=== PATIENT | male | born 1955 | race Two or more races ===

== ENCOUNTER 2024-07-19 19:37 | Inpatient (IN) | payer MEDICARE, OTHER ==
[~2024-07-19] VITALS: Ht 177.8 cm; Wt 45.2 kg
--- NOTE | 2024-07-19 19:59 | ED.PDOC ---
History of Present Illness HPI Comments 68-year-old male with PMHx HTN, DM, CHF And end-stage renal disease on home peritoneal dialysis presents with a chief complaint of syncope x 2 onset earlier today. Patient states that around noon today he was eating a burrito then states that he felt "like my head exploded" and "then I couldn't speak, like I was paralyzed". Patient reports that his tried getting him to speak and was sternal rubbing him, but patient states that he could not speak. Patient mentions that he then had a syncopal episode. Patient reports that he was recently placed on Eliquis and that is when the onset of the syncope episodes began as he has had this happen before in the past. Patient denies hitting his head or other neurological symptoms at this time. No other symptoms or modifying factors present at this time. patient was hypotensive on arrival. Chief Complaint: Syncope Time Seen by MD: 19:52 Reviewed Notes: Nurses Notes, Medications, Allergies Information Source: Patient, Relative (Child) Mode of Arrival: WALKER Severity: Moderate Timing: Hours Duration: Since onset Prehospital treatment: None Past Medical History PAST MEDICAL HISTORY: CHF, DM, ESRD (On dialysis), HTN Surgical History: Denies all surgeries Family History Family History: Reviewed,noncontributory to illness Social History Smoker: Non-Smoker Alcohol: Denies ETOH Use Drugs: Denies Drug Use Lives In: Home Constitutional: reports: weakness; denies: chills, diaphoresis, fatigue, fever, malaise, sweats, others EENTM: denies: blurred vision, double vision, ear bleeding, ear discharge, ear drainage, ear pain, ear ringing, eye pain, eye redness, hearing loss, mouth pain, mouth swelling, nasal discharge, nose bleeding, nose congestion, nose pain, photophobia, tearing, throat pain, throat swelling, voice changes, others Respiratory: denies: cough, hemoptysis, orthopnea, SOB at rest, shortness of breath, SOB with excertion, stridor, wheezing, others Cardiovascular: reports: syncope; denies: chest pain, dizzy spells, diaphoresis, Dyspnea on exertion, edema, irregular heart beat, left arm pain, lightheadedness, palpitations, PND, others Gastrointestinal: denies: abdomen distended, abdominal pain, blood streaked bowels, constipated, diarrhea, dysphagia, difficulty swallowing, hematemesis, melena, nausea, poor appetite, poor fluid intake, rectal bleeding, rectal pain, vomiting, others Genitourinary: denies: burning, dysuria, flank pain, frequency, hematuria, incontinence, penile discharge, penile sore, pain, testicle pain, testicle swelling, urgency, others Neurological: reports: dizziness, fainting; denies: headache, left sided numbness, left sided weakness, numbness, paresthesia, pre-existing deficit, right sided numbness, right sided weakness, seizure, speech problems, tingling, tremors, weakness, others Musculoskeletal: denies: back pain, gout, joint pain, joint swelling, muscle pain, muscle stiffness, neck pain, others Integumetry: denies: bruises, change in color, change in hair/nails, dryness, laceration, lesions, lumps, rash, wounds, others Allergic/Immunocompromised: denies: Difficulty Healing, Frequent Infections, Hives, Itching, others Hematologic/Lymphatic: denies: anemia, blood clots, easy bleeding, easy bruising, swollen glands, others Endocrine: denies: excessive hunger, excessive sweating, excessive thirst, excessive urination, flushing, intolerance to cold, intolerance to heat, unexplained weight gain, unexplained weight loss, others Psychiatric: denies: anxiety, bipolar disorder, depression, hopeless, panic disorder, schizophrenia, sleepless, suicidal, others All Other Systems: Reviewed and Negative Physical Exam General Appearance: Mild Distress ( patient was in moderate distress due to anxiety. Patient appears to be in poor overall health.), Obese HEENT: Normal ENT Inspection, Pharynx Normal, TMs Normal Neck: Full Range of Motion, Non-Tender, Normal, Normal Inspection Respiratory: Other ( Mild bilateral rhonchi appreciated in right middle lobe, right upper lobe and left upper lobe. No accessory muscle use. No signs of respiratory distress.) Cardiovascular: No Edema, No JVD, No Murmur, No Gallop, Normal Peripheral Pulses, Regular Rate/Rhythm Breast Exam: Deferred Gastrointestinal: No Pulsatile Mass, Normal Bowel Sounds, Soft Genitalia: Deferred Pelvic: Deferred Rectal: Deferred Extremities: No calf tenderness, Normal capillary refill, No pedal edema Neurologic: Alert, No Motor Deficits, Normal Affect, Normal Mood, No Sensory Deficits Cerebellar Function: Normal Reflexes: Normal Skin: Dry, Normal Color, Warm Lymphatic: No Adenopathy Was a procedure done? Was a procedure done?: No Differential Dx Considerations may include: Intracranial mass, subarachnoid hemorrhage, sepsis, electrolyte abnormality, encephalopathy, end-stage renal disease X-Ray, Labs, Meds, VS Vital Signs Date Time Temp Pulse Resp B/P (MAP) Pulse Ox O2 Delivery O2 Flow Rate FiO2 07/19/24 20:40 85 07/19/24 19:49 97.8 74 15 85/53 (64) 97 97.8 Lab Test 07/20/24 00:17 07/19/24 23:15 07/19/24 22:13 07/19/24 21:05 Range/Units POC Glucose 155 H 70-106 mg/dl Troponin I High Sensitivity 44 47 </=54 ng/L Lactic Acid Level 1.9 0.4-2.0 mmol/L Test 07/19/24 20:14 07/19/24 19:53 Range/Units White Blood Count 12.7 H 4.4-10.8 10^3/uL Red Blood Count 4.07 L 4.5-5.90 10^6/uL Hemoglobin 11.8 L 13.5-17.5 g/dL Hematocrit 35.7 L 41.0-53.0 % Mean Corpuscular Volume 87.6 80.0-100.0 fL Mean Corpuscular Hemoglobin 29.0 28.0-32.0 pg Mean Corpuscular Hemoglobin Concent 33.1 32.0-36.0 g/dL Red Cell Distribution Width 14.5 H 11.8-14.3 % Platelet Count 222 140-450 10^3/uL Mean Platelet Volume 7.3 6.9-10.8 fL Neutrophils (%) (Auto) 84.5 H 37.0-80.0 % Lymphocytes (%) (Auto) 7.2 L 10.0-50.0 % Monocytes (%) (Auto) 5.8 0.0-12.0 % Eosinophils (%) (Auto) 1.6 0.0-7.0 % Basophils (%) (Auto) 0.9 0.0-2.0 % Neutrophils # (Auto) 10.7 H 1.6-8.6 10 ^3/uL Lymphocytes # (Auto) 0.9 0.4-5.4 10 ^3/uL Monocytes # (Auto) 0.7 0-1.3 10 ^3/uL Eosinophils # (Auto) 0.2 0-0.8 10 ^3/uL Basophils # (Auto) 0.1 0-0.2 10 ^3/uL Nucleated Red Blood Cells 0.0 % Sodium Level 128 L 136-145 mmol/L Potassium Level 4.8 3.5-5.1 mmol/L Chloride Level 90 L 98-107 mmol/L Carbon Dioxide Level 26 20-31 mmol/L Anion Gap 12 5-15 Blood Urea Nitrogen 55 H 9-23 mg/dL Creatinine 7.64 H 0.700-1.30 mg/dL Glomerular Filtration Rate Calc 7 >90 mL/min BUN/Creatinine Ratio 7.2 L 10.0-20.0 Serum Glucose 222 H 74-106 mg/dL Lactic Acid Level 3.0 *H 0.4-2.0 mmol/L Calcium Level 8.1 L 8.7-10.4 mg/dL Total Bilirubin 0.5 0.2-1.0 mg/dL Aspartate Amino Transferase (AST) 28 13-40 U/L Alanine Aminotransferase (ALT) 27 7-40 U/L Alkaline Phosphatase 125 H 46-116 U/L Troponin I High Sensitivity 47 </=54 ng/L B-Type Natriuretic Peptide 241.22 0-100 pg/mL Total Protein 6.3 5.7-8.2 g/dL Albumin 3.8 3.2-4.8 g/dL Lipase 47 12-53 U/L POC Glucose 214 H 70-106 mg/dl Current Medications Medications (Trade) Dose Ordered Sig/Fransisco Route Start Time Stop Time Status Last Admin Sodium Chloride 1,000 ml @ 150 mls/hr Q6H40M ONCE IV 07/19/24 20:00 07/20/24 02:39 07/19/24 21:30 Albumin Human 100 ml @ 100 mls/hr ONCE ONCE IV 07/19/24 20:00 07/19/24 20:59 DC 07/19/24 20:29 X-Ray, Labs, Meds, VS Comment All studies performed in the ED were evaluated by me personally. Laboratories revealed a mild leukocytosis, anemia, hyponatremia, hyperglycemia, elevated lactic acid and confirmation of his end-stage renal disease. EKG revealed an atrial fibrillation that is rate controlled with a rate of 85. Incomplete left bundle-branch block. QT interval 375. Imaging studies revealed a consolidation indicative of pneumonia. Due to the patient's unusual encephalopathy event as well as dialysis concerns, patient will be admitted for neuro evaluation, cardiac evaluation as well as nephrology evaluation prior to his peritoneal dialysis treatment. Time of 1ST Reevaluation: 01:49 Reevaluation 1ST: Improved Consultation: PCP, Other ( Nephrology) Patient Education/Counseling: Diagnosis, Treatment, Prognosis Family Education/Counseling: Diagnosis, Treatment, No Family Present Departure 1 Departure Time of Disposition: 01:50 Impression: Primary Impression: Metabolic encephalopathy Additional Impressions: Leukocytosis Anemia Hyponatremia Pneumonia End stage renal disease on dialysis Hyperglycemia due to diabetes mellitus Elevated lactic acid level A-fib Disposition: 09 ADMITTED INPATIENT Condition: Fair Discharged With: Self, Relative Critical Care Note Critical Care Time?: No Stability Stability form required: No Heart Score Heart Score: Heart Score Response (Comments) Value History Slightly Suspicious 0 EKG Repolarization Disturb 1 Age >65 2 Risk Factors >3 or Hx ASHD 2 Troponin 1-2 x's Normal limit 1 Total 6 I personally scribed for OLIVER WILLIAMSON PAC ([email or web address]) on 07/19/24 at 19:59. Electronically submitted by Monty Solano ([email or web address]). OLIVER WILLIAMSON PAC Jul 19, 2024 19:59
[2024-07-19 20:14] VITALS: PULSE 82; RESP 17; O2SAT 81
--- NOTE | 2024-07-19 20:20 | DVH ---
CHEST RADIOGRAPH Indication: Shortness of breath Technique: Single frontal view of the chest was obtained Comparison: None FINDINGS: Lines and Tubes: None Lungs: Mild bilateral perihilar peribronchial thickening findings may represent bronchitis. Pleura: No effusion. No pneumothorax. Cardiomediastinal contours: Unremarkable Bones: No acute osseous abnormality. IMPRESSION: 1. Possible bronchitic changes correlate with clinical symptomatology. HS:Y
[2024-07-19] MEDS: ALBUMIN 25% 100 ML IV ONE (20:29)
[2024-07-19 20:38] LABS: Basophils # (auto) 0.1 10 ^3/uL (0-0.2); Basophils % (auto) 0.9 % (0.0-2.0); Eosinophils # (auto) 0.2 10 ^3/uL (0-0.8); Eosinophils % (auto) 1.6 % (0.0-7.0); Hematocrit 35.7 % (41.0-53.0); Hemoglobin 11.8 g/dL (13.5-17.5); Lymphocytes # (auto) 0.9 10 ^3/uL (0.4-5.4); Lymphocytes % (auto) 7.2 % (10.0-50.0); Mean Corpuscular Hgb Conc. 33.1 g/dL (32.0-36.0); Mean Corpuscular Volume 87.6 fL (80.0-100.0); Monocytes # (auto) 0.7 10 ^3/uL (0-1.3); Monocytes % (auto) 5.8 % (0.0-12.0); Neutrophils # (auto) 10.7 10 ^3/uL (1.6-8.6); Neutrophils % (auto) 84.5 % (37.0-80.0); Platelet Count (auto) 222 10^3/uL (140-450); Red Blood Cells 4.07 10^6/uL (4.5-5.90); Red Cell Distribution Width 14.5 % (11.8-14.3); White Blood Cell 12.7 10^3/uL (4.4-10.8)
[2024-07-19 20:55] LABS: Alanine Aminotransferase 27 U/L (7-40); Albumin 3.8 g/dL (3.2-4.8); Anion Gap 12 (5-15); Aspartate Aminotransferase 28 U/L (13-40); BUN/Creatinine Ratio 7.2 (10.0-20.0); Bilirubin, Total 0.5 mg/dL (0.2-1.0); Carbon Dioxide 26 mmol/L (20-31); Lipase 47 U/L (12-53); Potassium 4.8 mmol/L (3.5-5.1); Total Protein 6.3 g/dL (5.7-8.2)
[2024-07-19 21:24] LABS: Alkaline Phosphatase 125 U/L (46-116); Blood Urea Nitrogen 55 mg/dL (9-23); Calcium 8.1 mg/dL (8.7-10.4); Chloride 90 mmol/L (98-107); Glucose 222 mg/dL (74-106); Sodium 128 mmol/L (136-145)
[2024-07-19] MEDS: SODIUM CHLORIDE 0.9% 1,000 ML IV ONE (21:30)
[2024-07-20] VITALS (8 sets, daily range): BP systolic 93–139; BP diastolic 60–66; PULSE 64–83; RESP 13–20; TEMP 97.4–97.8; O2SAT 93–100
--- NOTE | 2024-07-20 01:16 | DVH ---
EXAM: CT HEAD WITHOUT CONTRAST INDICATION: Headache TECHNIQUE: CT of the head without intravenous contrast. Radiation Dose : 1. Head: CT Dose: CTDI volume is 62.74 mGy. Dose-length product is 1234.85 mGy*cm The dose indicators for CT are the volume Computed Tomography (CT) Dose Index (CTDIvol) and the Dose Length Product (DLP), and are measured in units of mGy and mGy-cm, respectively. These indicators are not patient dose, but values generated from the CT scanner acquisition factors. The report includes radiation exposure data for exposures received during this examination. COMPARISON: None FINDINGS: There is no evidence of acute intracranial hemorrhage, extra-axial collection, mass effect, midline s hift, herniation or hydrocephalus. The ventricles, sulci and cisterns are age appropriate. The guerrier-white differentiation is intact. Punctate parenchymal calcification within the medial left p eriventricular guerrier-white matter junction. Patchy periventricular and subcortical white matter hypoattenuation is nonspecific but may be related to small vessel ischemic disease. Right maxillary mucosal sinus disease noted. The remaining visualized paranasal sinuses and mastoid a ir cells are clear. The surrounding soft tissues and osseous structures are unremarkable. IMPRESSION: 1. No acute intracranial abnormality. Radiation optimization: All CT scans at this facility use at least one of these dose optimization frank hniques: automated exposure control mA and/or kV adjustment per patient size (includes targeted exam s where dose is matched to clinical indication) or iterative reconstruction.
[2024-07-20] MEDS: LACTULOSE 20Gm/30ML SOLN PO ONE (02:22)
[2024-07-20] MEDS: AZITHROMYCIN 500MG/ 250ML 250 ML IV ONE (02:23)
[2024-07-20] MEDS ORDERED: ONDANSETRON HCL 4 MG/2 ML VIAL IV PRN (03:30)
[2024-07-20] MEDS ORDERED: DOCUSATE SOD 100 MG CAP PO PRN (03:30)
[2024-07-20] MEDS ORDERED: ACETAMINOPHEN 325 MG TAB PO PRN (03:30)
[2024-07-20] MEDS ORDERED: DEXTROSE (50%) 50ML SYRG IV PRN ×2 (03:30→04:45)
[2024-07-20] MEDS ORDERED: NITROGLYCERIN 0.4 MG SL TAB SL PRN (04:45)
[2024-07-20] MEDS ORDERED: MORPHINE SULFATE INJ 2 MG/ml SYRG IV PRN (04:45)
--- NOTE | 2024-07-20 05:18 | DVHHP2 ---
History of Present Illness Reason for Visit: Metabolic encephalopathy History of Present Illness The patient is a 68-year-old male with past medical history of CHF, DM, end- stage renal disease on peritoneal dialysis and hypertension presented to [facility] ED for evaluation of syncopal episode. Patient states that around noon today he was eating a burrito when he felt exploded head, and "then couldn't speak, feeling paralyzed". Patient reports that his tried getting him to speak and was sternal rubbing him, but he could not speak, then had a syncopal episode. Patient reports that he was recently placed on Eliquis. Patient was seen and evaluated in the ED, laboratory data shows WBC 12.7, platelets 222, sodium 128, potassium 4.8, BUN 55, creatinine 7.64, GFR seven, glucose 222, calcium 8.1, BNP 241.22, lactic acid 3.0 trending down to 1.9, troponin 44, lipase 47, blood pressure 101/87, heart rate 85, temperature 97.8 F, O2 saturation 97% on oxygen. Head CT showed no acute intracranial abnormality. Please see medication orders section in the computer. On my assess ment, patient denied chest pain, no headache, no dizziness, no diaphoresis, no shortness of breath, no diarrhea, no nausea, no vomiting, no fever, no chills. Patient was admitted for further evaluation and medical management. Past Medical History CHF, DM, ESRD (On dialysis), HTN Past Surgical History Denies all surgeries Family History Reviewed, noncontributory to the management of this case. Past Social History The patient lives at home, denies smoking, alcohol or illicit drugs abuse. Review of Systems Constitutional: Yes: Weakness; No: Fever, Chills, Sweats, Malaise, Other Eyes: No: Pain, Vision change, Conjunctivae inflammation, Eyelid inflammation, Other, Redness ENT: No: Ear pain, Ear discharge, Nose pain, Nose discharge, Nose congestion, Mouth pain, Mouth swelling, Throat pain, Throat swelling, Other Respiratory: No: Cough, Dry, Shortness of breath, SOB with excertion, Wheezing, Hemoptysis, Pleuritic Pain, Sputum, Wheezing, Other Cardiovascular: No: Chest Pain, Palpitations, Orthopnea, Paroxysmal Noc. Dyspnea, Edema, Lt Headedness, Other Gastrointestinal: No: Nausea, Vomiting, Abdominal Pain, Diarrhea, Constipation, Melena, Hematochezia, Other Genitourinary: No Dysuria, No Frequency, No Incontinence, No Hematuria, No Retention; Other (Peritoneal dialysis) Musculoskeletal: No: other, neck pain, shoulder pain, arm pain, back pain, hand pain, leg pain, foot pain Skin: No: Rash, Lesions, Jaundice, Bruising, Other Neurological: No: Weakness, Numbness, Incoordination, Change in speech, Confusion, Seizures, Other Medications Current Medications Medications Dose Ordered Sig/Fransisco Route Start Time Stop Time Status Last Admin Dose Admin Ampicillin Sodium/ Sulbactam Sodium 3 gm/Sodium Chloride 100 ml @ 100 mls/hr Q6H IV 07/20/24 00:45 UNV Sevelamer HCl 800 mg TIDWM PO 07/20/24 08:00 UNV Multivit/Ca Carb/ B Cmplx/FA/Prenat 1 tab DAILY PO 07/20/24 10:00 UNV Azithromycin 250 ml @ 125 mls/hr DAILY IV 07/20/24 10:00 UNV Carvedilol 3.125 mg Q12HR PO 07/20/24 10:00 UNV Gabapentin 300 mg TID PO 07/20/24 06:00 UNV Atorvastatin Calcium 20 mg HS PO 07/20/24 22:00 UNV Diagnostic Test (Pha) 1 strip ACHS 07/20/24 07:00 UNV Insulin Human Regular HS SC 07/20/24 22:00 UNV Insulin Human Regular AC SC 07/20/24 07:00 UNV Dextrose 50 ml UD PRN IV 07/20/24 03:30 UNV Acetaminophen/ Hydrocodone Bitart 1 tab Q4HP PRN PO 07/20/24 03:30 UNV Ondansetron HCl 4 mg Q4HP PRN IV 07/20/24 03:30 UNV Docusate Sodium 100 mg BIDPRN PRN PO 07/20/24 03:30 UNV Acetaminophen 650 mg Q6HP PRN PO 07/20/24 03:30 UNV Lactulose 30 ml DAILY PO 07/20/24 10:00 UNV Exam Vital Signs Vital Signs Date Time Temp Pulse Resp B/P (MAP) Pulse Ox O2 Delivery O2 Flow Rate FiO2 07/20/24 00:02 90 07/19/24 19:49 97.8 15 85/53 (64) 97 97.8 General Appearance: Alert, Oriented X3, Cooperative, No acute distress HEENT: Atraumatic, PERRLA, EOMI, Mucous membr. moist/pink Respiratory: Clear to auscultation, Normal air movement Cardiovascular: Regular rate, Normal S1, Normal S2, No murmurs Abdominal: Normal bowel sounds, Soft, No tenderness, No hepatospenomegaly, No masses Extremities: No clubbing, No cyanosis, No edema, Normal pulses, No tend erness/swelling Skin: No rashes, No breakdown, No significant lesion Neuro: Normal speech, Normal tone, Sensation intact, Cranial nerves 3-12 NL, Reflexes 2+, Other (Generalized weakness) Psych/Mental Status: Mental status NL, Mood NL Labs/Xrays Labs Test 07/20/24 00:17 07/19/24 23:15 07/19/24 22:13 07/19/24 20:14 Range/Units POC Glucose 155 H 70-106 mg/dl Troponin I High Sensitivity 44 </=54 ng/L Lactic Acid Level 1.9 0.4-2.0 mmol/L White Blood Count 12.7 H 4.4-10.8 10^3/uL Red Blood Count 4.07 L 4.5-5.90 10^6/uL Hemoglobin 11.8 L 13.5-17.5 g/dL Hematocrit 35.7 L 41.0-53.0 % Mean Corpuscular Volume 87.6 80.0-100.0 fL Mean Corpuscular Hemoglobin 29.0 28.0-32.0 pg Mean Corpuscular Hemoglobin Concent 33.1 32.0-36.0 g/dL Red Cell Distribution Width 14.5 H 11.8-14.3 % Platelet Count 222 140-450 10^3/uL Mean Platelet Volume 7.3 6.9-10.8 fL Neutrophils (%) (Auto) 84.5 H 37.0-80.0 % Lymphocytes (%) (Auto) 7.2 L 10.0-50.0 % Monocytes (%) (Auto) 5.8 0.0-12.0 % Eosinophils (%) (Auto) 1.6 0.0-7.0 % Basophils (%) (Auto) 0.9 0.0-2.0 % Neutrophils # (Auto) 10.7 H 1.6-8.6 10 ^3/uL Lymphocytes # (Auto) 0.9 0.4-5.4 10 ^3/uL Monocytes # (Auto) 0.7 0-1.3 10 ^3/uL Eosinophils # (Auto) 0.2 0-0.8 10 ^3/uL Basophils # (Auto) 0.1 0-0.2 10 ^3/uL Nucleated Red Blood Cells 0.0 % Sodium Level 128 L 136-145 mmol/L Potassium Level 4.8 3.5-5.1 mmol/L Chloride Level 90 L 98-107 mmol/L Carbon Dioxide Level 26 20-31 mmol/L Anion Gap 12 5-15 Blood Urea Nitrogen 55 H 9-23 mg/dL Creatinine 7.64 H 0.700-1.30 mg/dL Glomerular Filtration Rate Calc 7 >90 mL/min BUN/Creatinine Ratio 7.2 L 10.0-20.0 Serum Glucose 222 H 74-106 mg/dL Calcium Level 8.1 L 8.7-10.4 mg/dL Total Bilirubin 0.5 0.2-1.0 mg/dL Aspartate Amino Transferase (AST) 28 13-40 U/L Alanine Aminotransferase (ALT) 27 7-40 U/L Alkaline Phosphatase 125 H 46-116 U/L B-Type Natriuretic Peptide 241.22 0-100 pg/mL Total Protein 6.3 5.7-8.2 g/dL Albumin 3.8 3.2-4.8 g/dL Lipase 47 12-53 U/L PATIENT: FERNANDO RANDLE ACCT: [id number] UNIT: [id number] : 1955 LOC: ER ROOM / BED: / AGE / SEX: 68 / M ADM STATUS: REG ER SERVICE [id number] ORDERING PHYSICIAN: OLIVER WILLIAMSON PAC PROCEDURE(s): HWOCT - HEAD WITHOUT CONTRAST REASON: Headache ORDER NUMBER(s): [id number], ACCESSION NUMBER(s): [id number] EXAM: CT HEAD WITHOUT CONTRAST INDICATION: Headache TECHNIQUE: CT of the head without intravenous contrast. Radiation Dose: 1. Head: CT Dose: CTDI volume is 62.74 mGy. Dose-length product is 1234.85 mGy*cm The dose indicators for CT are the volume Computed Tomography (CT) Dose Index (CTDIvol) and the Dose Length Product (DLP), and are measured in units of mGy an d mGy-cm, respectively. These indicators are not patient dose, but values generated from the CT scanner acquisition factors. The report includes radiation exposure data for exposures received during this examination. COMPARISON: None FINDINGS: There is no evidence of acute intracranial hemorrhage, extra-axial collection, mass effect, midline shift, herniation or hydrocephalus. The ventricles, sulci and cisterns are age appropriate. The guerrier-white differentiation is intact. Punctate parenchymal calcification within the medial left periventricular guerrier-white matter junction. Patchy periventricular and subcortical white matter hypoattenuation is nonspecific but may be related to small vessel ischemic disease. Right maxillary mucosal sinus disease noted. The remaining visualized paranasal sinuses and mastoid air cells are clear. The surrounding soft tissues and osseous structures are unremarkable. IMPRESSION: 1. No acute intracranial abnormality. ORDERING PHYSICIAN: OLIVER WILLIAMSON PAC PROCEDURE(s): CXRP - CHEST PORTABLE REASON: Shortness of breath ORDER NUMBER(s): [id number], ACCESSION NUMBER(s): [id number] CHEST RADIOGRAPH Indication: Shortness of breath Technique: Single frontal view of the chest was obtained Comparison: None FINDINGS: Lines and Tubes: None Lungs: Mild bilateral perihilar peribronchial thickening findings may represent bronchitis. Pleura: No effusion. No pneumothorax. Cardiomediastinal contours: Unremarkable Bones: No acute osseous abnormality. IMPRESSION: 1. Possible bronchitic changes correlate with clinical symptomatology. Assessment/Plan Assessment/Plan Metabolic encephalopathy Atrial fibrillation Leukocytosis, unspecified Elevated lactic acid level Hyponatremia Pneumonia, unspecified organism End stage renal disease on dialysis Hyperglycemia due to diabetes mellitus Plan 1. Admit to telemetry unit 2. Breathing treatment 3. Pain control management 4. IV antibiotic management 5. Management of fluids and electrolytes 6. Consultation for nephrology 7. Diagnostic test chest x-ray 8. DVT prophylaxis-on Eliquis 9. Repeat labs CBC, CMP in a.m. 10. Home medication reviewed and reconciled 11. Continue with current medical management 12. Treatment plan discussed with patient and RN. Patient verbalized understanding. Plan discussed with: Patient, Other (RN) My Orders Orders - NAVID ABEBE DNP Procedure Category Date Status Time Complete Blood Count LAB 07/20/24 Logged 04:00 Comprehensive LAB 07/20/24 Logged Metabolic Panel 04:00 Sevelamer (Renagel) PHA 07/20/24 Logged 08:00 Carvedilol Tablet PHA 07/20/24 Logged (Coreg Tablet) 10:00 Gabapentin Capsule PHA 07/20/24 Logged (Neurontin Capsule) 06:00 Atorvastatin (Lipitor) PHA 07/20/24 Logged 22:00 *[facility] CONS 07/20/24 Transmitted -[place] 03:16 Glucose Blood PHA 07/20/24 Logged (Accu-Chek Comfort 07:00 Insulin R (Human) PHA 07/20/24 Logged (Insulin R) 22:00 Insulin R (Human) PHA 07/20/24 Logged (Insulin R) 07:00 Dextrose 50% Syringe PHA 07/20/24 Logged 03:30 Allergies MAGUI 07/20/24 In Process 03:16 Code Status CODE 07/20/24 Transmitted 03:16 Renal DIET 07/20/24 Transmitted Standard(2gna,3gk,Lopho) Breakfast Oxygen Per Hour RT 07/20/24 Transmitted 03:16 Hydrocodone-Acet PHA 07/20/24 Logged 5/325mg Tab ([place] 03:30 Ondansetron Hcl PHA 07/20/24 Logged (Zofran) 03:30 Docusate Sodium PHA 07/20/24 Logged Capsule ([place] 03:30 Fall Risk Precautions MAGUI 07/20/[address] 03:16 Complete Blood Count LAB 07/21/24 Verified 04:00 Comprehensive LAB 07/21/24 Verified Metabolic Panel 04:00 Echo 2d Mode Cardiac US 07/20/24 Logged DOP 03:16 Condition: Serious MAGUI 07/20/24 In Process 03:16 Acetaminophen Tablet PHA 07/20/24 Logged (Tylenol Tablet) 03:30 Bedrest With Bathroom MAGUI 07/20/24 In Process Privileg 03:16 Sequential MAGUI 07/20/24 In Process Compression Device Lactulose Oral PHA 07/20/24 Logged 10:00 B-Complex W/ C & PHA 07/20/24 Logged Folic Tablet 10:00 Azithromycin 500mg/ PHA 07/20/24 Logged 250ml (Zithromax 50 10:00 Glucose Blood PHA 07/20/24 Transmitted (Accu-Chek Comfort 07:00 Bedtime Insulin Scale PHA 07/20/24 Verified 22:00 Moderate Insulin Ss [facility] 07/20/24 Verified 07:00 Dextrose 50% Syringe [facility] 07/20/24 Verified 04:45 Admit ADMIT 07/20/24 Verified 04:34 Nitroglycerin [facility] 07/20/24 Verified Sublingual (Ntrostat 04:45 Morphine Sulfate [facility] 07/20/24 Verified Injection 04:45 Notify Md Of Changes [facility] 07/20/24 Verified From Base 04:34 Clinical Interviewer For [facility] 07/20/24 Verified 24 Hours 04:34 Emergency Dysrhythmia [facility] 07/20/24 Verified Protocol 04:34 Rhythm Strips Once [facility] 07/20/24 Verified Every Shift 04:34 Oxygen By Nasal 07/20/24 Verified Cannula 04:34 Problem List: (1) Metabolic encephalopathy (2) Atrial fibrillation (3) Hyponatremia (4) Pneumonia, unspecified organism (5) Leukocytosis, unspecified (6) Elevated lactic acid level (7) End stage renal disease on dialysis (8) Hyperglycemia due to diabetes mellitus Date of Service: Jul 20, 2024 Billing Provider: NAVID ABEBE DNP Common Visit Codes: [id number] INP/OBS CARE (HIGH) NAVID ABEBE DNP Jul 20, 2024 05:18
[2024-07-20 06:01] LABS: Basophils # (auto) 0.1 10 ^3/uL (0-0.2); Basophils % (auto) 0.6 % (0.0-2.0); Eosinophils # (auto) 0.3 10 ^3/uL (0-0.8); Hematocrit 29.7 % (41.0-53.0); Hemoglobin 10.4 g/dL (13.5-17.5); Lymphocytes # (auto) 1.4 10 ^3/uL (0.4-5.4); Lymphocytes % (auto) 12.6 % (10.0-50.0); Mean Corpuscular Hemoglobin 30.3 pg (28.0-32.0); Mean Corpuscular Hgb Conc. 35.1 g/dL (32.0-36.0); Mean Corpuscular Volume 86.4 fL (80.0-100.0); Monocytes # (auto) 0.9 10 ^3/uL (0-1.3); Monocytes % (auto) 8.2 % (0.0-12.0); Neutrophils # (auto) 8.1 10 ^3/uL (1.6-8.6); Neutrophils % (auto) 75.6 % (37.0-80.0); Platelet Count (auto) 189 10^3/uL (140-450); Red Blood Cells 3.44 10^6/uL (4.5-5.90); Red Cell Distribution Width 14.5 % (11.8-14.3); White Blood Cell 10.8 10^3/uL (4.4-10.8)
[2024-07-20 06:20] LABS: Alanine Aminotransferase 21 U/L (7-40); Alkaline Phosphatase 111 U/L (46-116); Anion Gap 10 (5-15); BUN/Creatinine Ratio 6.9 (10.0-20.0); Carbon Dioxide 27 mmol/L (20-31); Potassium 3.6 mmol/L (3.5-5.1); Total Protein 6.3 g/dL (5.7-8.2)
[2024-07-20 06:21] LABS: Albumin 3.8 g/dL (3.2-4.8); Aspartate Aminotransferase 15 U/L (13-40); Bilirubin, Total 0.6 mg/dL (0.2-1.0)
[2024-07-20 06:25] LABS: Blood Urea Nitrogen 53 mg/dL (9-23); Chloride 94 mmol/L (98-107); Glucose 139 mg/dL (74-106); Sodium 131 mmol/L (136-145)
[2024-07-20] MEDS ORDERED: ACCU-CHEK COMFORT CURVE STRIP VI SCH (07:00)
[2024-07-20] MEDS ORDERED: InsuLIN REG 1unit/0.01ml Soln (100units/ml) SC SCH ×2 (07:00→22:00)
[2024-07-20] MEDS: GABAPENTIN 300 MG CAP PO SCH (07:08)
[2024-07-20] MEDS: ACCU-CHEK COMFORT CURVE STRIP VI SCH (07:09)
[2024-07-20] MEDS: InsuLIN REG 1unit/0.01ml Soln (100units/ml) SC SCH ×2 (07:14→21:41)
[2024-07-20] MEDS ORDERED: TAMS1CAP25 PO (08:47)
[2024-07-20] MEDS ORDERED: REPA1TAB5 OR (08:47)
[2024-07-20] MEDS ORDERED: GABA300T4 PO (08:47)
[2024-07-20] MEDS ORDERED: SPIR25TA8 PO (08:47)
[2024-07-20] MEDS ORDERED: ATOR20TA50 PO (08:47)
[2024-07-20] MEDS ORDERED: SEVE400T PO (08:47)
[2024-07-20] MEDS ORDERED: OME20T PO (08:47)
[2024-07-20] MEDS ORDERED: CARV-216 OR (08:47)
[2024-07-20] MEDS ORDERED: AML5T PO (08:47)
[2024-07-20] MEDS ORDERED: ALB5IS NEB (08:47)
[2024-07-20] MEDS ORDERED: APIX5TAB PO (08:47)
[2024-07-20] MEDS ORDERED: CINA30TA14 PO (08:47)
[2024-07-20] MEDS: B-COMPLEX W/ C & FOLIC ACID(NEPHROVITE TAB) PO SCH (09:56)
[2024-07-20] MEDS: AMPICILLIN & SULBACTAM SODIUM 3 GM in SODIUM CHL 0.9% 100 ML IV SCH (09:56)
[2024-07-20] MEDS: SEVELAMER 800 MG TAB PO SCH (09:56)
[2024-07-20] MEDS: FAMOTIDINE (10MG/ML) 2ML VL IV SCH (09:57)
[2024-07-20] MEDS: APIXABAN 5 MG TAB PO SCH (09:57)
[2024-07-20] MEDS: LACTULOSE 20Gm/30ML SOLN PO SCH (09:58)
[2024-07-20] MEDS: CARVEDILOL 3.125 MG TAB PO SCH (09:59)
--- NOTE | 2024-07-20 11:08 | DVHINCON2 ---
Date of service: Jul 20, 2024 Referring Physician Hospitalist Reason for Consultation End-stage renal disease History of Present Illness 68-year-old male with past medical history of end-stage renal disease on peritoneal dialysis for the past six months, hypertension, diabetes, atrial fibrillation recently diagnosed [facility] in June of this year approximately less than two weeks ago. Patient reports that he has had persistent cough and and phlegm. He presents to the hospital after an episode of confusion and change in mental state. Nephrology is consulted to continue dialysis treatments. Patient describes his pre hospitalization event as a brief moment of paralysis with confusion and a sudden popping sound in his head Past Medical History End-stage renal disease Hypertension Diabetes Atrial fibrillation CHF Past Surgical History Dialysis catheter Allergies: Coded Allergies: NO KNOWN ALLERGIES (Unverified , 07/20/24) Home Meds Reported Medications Sevelamer HCl (Sevelamer Hydrochloride) 400 Mg Tab, 400 MG PO, TAB 07/20/24 Tamsulosin HCl (Tamsulosin Hydrochloride) 0.4 Mg Cap, 0.4 MG PO, CAP 07/20/24 Carvedilol (COREG) 12.5 Mg Tab, 12.5 MG OR, TAB 07/20/24 Amlodipine Besylate (NORVASC TABLET) 5 Mg Tb, 1 TAB PO DAILY, #30 TAB 5 Refills 07/20/24 Gabapentin (Once-Daily) (Gabapentin) 300 Mg Tab, 300 MG PO, TAB 07/20/24 Atorvastatin Calcium (ATORVASTATIN CALCIUM) 20 Mg Tab, 1 TAB PO DAILY, #30 TAB 5 Refills 07/20/24 Repaglinide (REPAGLINIDE) 1 Mg Tab, 1 MG OR, TAB 07/20/24 Spironolactone (Spironolactone) 25 Mg Tab, 1 TAB PO DAILY, #90 TAB 1 Refill 07/20/24 Omeprazole (Omeprazole) 20 Mg Cap, 20 MG PO, CAP 07/20/24 Cinacalcet HCl (Cinacalcet Hydrochloride) 30 Mg Tab, 30 MG PO, TAB 07/20/24 Apixaban Base (ELIQUIS) 5 Mg Tab, 5 MG PO BID, TAB 07/20/24 Albuterol Sulfate (Ventolin) 2.5 Mg/0.5 Ml Nb, 1 VIAL NEB Q6HR, #120 VIAL 5 Refills 07/20/24 Current Medications Current Medications Medications (Trade) Dose Ordered Sig/Fransisco Route PRN Reason Start Time Stop Time Status Last Admin Ampicillin Sodium/ Sulbactam Sodium 3 gm/Sodium Chloride 100 ml @ 100 mls/hr DAILY IV 07/20/24 06:00 07/20/24 09:56 Sevelamer HCl (Renagel) 800 mg TIDWM PO 07/20/24 08:00 07/20/24 09:56 Multivit/Ca Carb/ B Cmplx/FA/Prenat (Nephro-Peace Tablet) 1 tab DAILY PO 07/20/24 10:00 07/20/24 09:56 Azithromycin 250 ml @ 125 mls/hr DAILY@2200 IV 07/20/24 22:00 Carvedilol (Coreg Tablet) 3.125 mg Q12HR PO 07/20/24 10:00 Gabapentin (Neurontin Capsule) 300 mg TID PO 07/20/24 06:00 07/20/24 07:08 Atorvastatin Calcium (Lipitor) 20 mg HS PO 07/20/24 22:00 Diagnostic Test (Pha) (Accu-Chek Comfort Curve T) 1 strip ACHS 07/20/24 07:00 07/20/24 05:36 DC Insulin Human Regular (InsuLIN R) HS SC 07/20/24 22:00 Insulin Human Regular (InsuLIN R) AC SC 07/20/24 07:00 07/20/24 07:14 Dextrose 50 ml UD PRN IV Blood Sugar LESS THAN 60 07/20/24 03:30 Acetaminophen/ Hydrocodone Bitart (Nichols 5/325MG Tab) 1 tab Q4HP PRN PO MODERATE PAIN (4-6 PAIN SCALE) 07/20/24 03:30 Ondansetron HCl (Zofran) 4 mg Q4HP PRN IV NAUSEA / VOMITING 07/20/24 03:30 Docusate Sodium (Colace Capsule) 100 mg BIDPRN PRN PO FOR CONSTIPATION 07/20/24 03:30 Acetaminophen (Tylenol Tablet) 650 mg Q6HP PRN PO PAIN SCALE 1-3 OR TEMP>100.4 07/20/24 03:30 Lactulose 30 ml DAILY PO 07/20/24 10:00 Diagnostic Test (Pha) (Accu-Chek Comfort Curve T) 1 strip ACHS 07/20/24 07:00 07/20/24 07:09 Insulin Human Regular (InsuLIN R) HS SC 07/20/24 22:00 07/20/24 05:38 DC Insulin Human Regular (InsuLIN R) AC SC 07/20/24 07:00 07/20/24 05:38 DC Dextrose 50 ml UD PRN IV Blood Sugar LESS THAN 60 07/20/24 04:45 07/20/24 05:38 DC Nitroglycerin (Ntrostat Sublingual) 0.4 mg Q5MINP PRN SL FOR CHEST PAIN 07/20/24 04:45 Morphine Sulfate 2 mg Q30M PRN IV FOR CHEST PAIN 07/20/24 04:45 Famotidine (Pepcid Injection) 20 mg DAILY IV 07/20/24 10:00 07/20/24 09:57 Apixaban (Eliquis) 5 mg BID PO 07/20/24 10:00 07/20/24 09:57 Review of Systems Headache H&P Exam Vital Signs/I&O Vital Sign Date Time Temp Pulse Resp B/P (MAP) Pulse Ox O2 Delivery O2 Flow Rate FiO2 07/20/24 09:59 78 106/60 07/20/24 06:00 15 98 07/19/24 20:14 Room Air* 0 21 07/19/24 20:12 97.7 97.7 Intake and Output 07/19/24 07/20/24 19:00 07:00 Intake Total 1350 ml Balance 1350 ml Intake IV Total 1350 ml Physical Exam Elderly male Mild distress due to persistent cough Decreased inspiratory effort and positive phlegm but no crackles Abdomen is soft No ankle edema Abdominal peritoneal dialysis catheter Labs/Diagnostic Data Labs/Diagnostic Data Laboratory Tests Test 07/20/24 07:07 07/20/24 05:34 07/20/24 00:17 07/19/24 23:15 Range/Units POC Glucose 153 H 155 H 70-106 mg/dl White Blood Count 10.8 4.4-10.8 10^3/uL Red Blood Count 3.44 L 4.5-5.90 10^6/uL Hemoglobin 10.4 L 13.5-17.5 g/dL Hematocrit 29.7 #L 41.0-53.0 % Mean Corpuscular Volume 86.4 80.0-100.0 fL Mean Corpuscular Hemoglobin 30.3 28.0-32.0 pg Mean Corpuscular Hemoglobin Concent 35.1 32.0-36.0 g/dL Red Cell Distribution Width 14.5 H 11.8-14.3 % Platelet Count 189 140-450 10^3/uL Mean Platelet Volume 7.0 6.9-10.8 fL Neutrophils (%) (Auto) 75.6 37.0-80.0 % Lymphocytes (%) (Auto) 12.6 10.0-50.0 % Monocytes (%) (Auto) 8.2 0.0-12.0 % Eosinophils (%) (Auto) 3.0 0.0-7.0 % Basophils (%) (Auto) 0.6 0.0-2.0 % Neutrophils # (Auto) 8.1 1.6-8.6 10 ^3/uL Lymphocytes # (Auto) 1.4 0.4-5.4 10 ^3/uL Monocytes # (Auto) 0.9 0-1.3 10 ^3/uL Eosinophils # (Auto) 0.3 0-0.8 10 ^3/uL Basophils # (Auto) 0.1 0-0.2 10 ^3/uL Nucleated Red Blood Cells 0.0 % Sodium Level 131 L 136-145 mmol/L Potassium Level 3.6 3.5-5.1 mmol/L Chloride Level 94 L 98-107 mmol/L Carbon Dioxide Level 27 20-31 mmol/L Anion Gap 10 5-15 Blood Urea Nitrogen 53 H 9-23 mg/dL Creatinine 7.71 H 0.700-1.30 mg/dL Glomerular Filtration Rate Calc 7 >90 mL/min BUN/Creatinine Ratio 6.9 L 10.0-20.0 Serum Glucose 139 H 74-106 mg/dL Calcium Level 8.0 L 8.7-10.4 mg/dL Total Bilirubin 0.6 0.2-1.0 mg/dL Aspartate Amino Transferase (AST) 15 13-40 U/L Alanine Aminotransferase (ALT) 21 7-40 U/L Alkaline Phosphatase 111 46-116 U/L Total Protein 6.3 5.7-8.2 g/dL Albumin 3.8 3.2-4.8 g/dL Troponin I High Sensitivity 44 </=54 ng/L Test 07/19/24 22:13 07/19/24 21:05 07/19/24 20:07/19/24 19:53 Range/Units Lactic Acid Level 1.9 3.0 *H 0.4-2.0 mmol/L Troponin I High Sensitivity 47 47 </=54 ng/L White Blood Count 12.7 H 4.4-10.8 10^3/uL Red Blood Count 4.07 L 4.5-5.90 10^6/uL Hemoglobin 11.8 L 13.5-17.5 g/dL Hematocrit 35.7 L 41.0-53.0 % Mean Corpuscular Volume 87.6 80.0-100.0 fL Mean Corpuscular Hemoglobin 29.0 28.0-32.0 pg Mean Corpuscular Hemoglobin Concent 33.1 32.0-36.0 g/dL Red Cell Distribution Width 14.5 H 11.8-14.3 % Platelet Count 222 140-450 10^3/uL Mean Platelet Volume 7.3 6.9-10.8 fL Neutrophils (%) (Auto) 84.5 H 37.0-80.0 % Lymphocytes (%) (Auto) 7.2 L 10.0-50.0 % Monocytes (%) (Auto) 5.8 0.0-12.0 % Eosinophils (%) (Auto) 1.6 0.0-7.0 % Basophils (%) (Auto) 0.9 0.0-2.0 % Neutrophils # (Auto) 10.7 H 1.6-8.6 10 ^3/uL Lymphocytes # (Auto) 0.9 0.4-5.4 10 ^3/uL Monocytes # (Auto) 0.7 0-1.3 10 ^3/uL Eosinophils # (Auto) 0.2 0-0.8 10 ^3/uL Basophils # (Auto) 0.1 0-0.2 10 ^3/uL Nucleated Red Blood Cells 0.0 % Sodium Level 128 L 136-145 mmol/L Potassium Level 4.8 3.5-5.1 mmol/L Chloride Level 90 L 98-107 mmol/L Carbon Dioxide Level 26 20-31 mmol/L Anion Gap 12 5-15 Blood Urea Nitrogen 55 H 9-23 mg/dL Creatinine 7.64 H 0.700-1.30 mg/dL Glomerular Filtration Rate Calc 7 >90 mL/min BUN/Creatinine Ratio 7.2 L 10.0-20.0 Serum Glucose 222 H 74-106 mg/dL Calcium Level 8.1 L 8.7-10.4 mg/dL Total Bilirubin 0.5 0.2-1.0 mg/dL Aspartate Amino Transferase (AST) 28 13-40 U/L Alanine Aminotransferase (ALT) 27 7-40 U/L Alkaline Phosphatase 125 H 46-116 U/L B-Type Natriuretic Peptide 241.22 0-100 pg/mL Total Protein 6.3 5.7-8.2 g/dL Albumin 3.8 3.2-4.8 g/dL Lipase 47 12-53 U/L POC Glucose 214 H 70-106 mg/dl Assessment End-stage renal disease on peritoneal dialysis History of diabetes and high blood pressure Admitted for altered mental state in the setting of possible TIA rule out stroke Newly diagnosed atrial fibrillation and heart failure Resume home peritoneal dialysis regimen We will order midodrine p.o. to help maintain blood pressure Continue with stool softeners Neurology and cardiology eval Renal diet Monitor electrolytes Avoid hypotension Supportive care for patient cough Plan discussed with: Patient, Daughter ARIANNA PIKE MD Jul 20, 2024 11:08
--- NOTE | 2024-07-20 12:34 | DVHPN2 ---
Reviewed: Care Plan, H&P, Labs, Medications, Previous Orders, Radiology Changes from previous H/P or p: No Changes Eyes: No Pain, No Vision change, No Conjunctivae inflammation, No Eyelid inflammation, No Other, No Redness ENT: No Ear pain, No Ear discharge, No Nose pain, No Nose discharge, No Nose congestion, No Mouth pain, No Mouth swelling, No Throat pain, No Throat swelling, No Other Cardiovascular: No Chest Pain, No Palpitations, No Orthopnea, No Paroxysmal Noc. Dyspnea, No Edema, No Lt Headedness, No Other Respiratory: No Cough, No Dry, No Shortness of breath, No SOB with excertion, No Wheezing, No Hemoptysis, No Pleuritic Pain, No Sputum, No Other Gastrointestinal: No Nausea, No Vomiting, No Abdominal Pain, No Diarrhea, No Constipation, No Melena, No Hematochezia, No Other Genitourinary: No Dysuria, No Frequency, No Incontinence, No Hematuria, No Retention; Other (Peritoneal dialysis) Musculoskeletal: No other, No neck pain, No shoulder pain, No arm pain, No back pain, No hand pain, No leg pain, No foot pain Skin: No Rash, No Lesions, No Jaundice, No Bruising, No Other Objective Vitals Vital Signs Date Time Temp Pulse Resp B/P (MAP) Pulse Ox O2 Delivery O2 Flow Rate FiO2 07/20/24 09:59 78 106/60 07/20/24 09:00 97.5 18 97 97.5 07/19/24 20:14 Room Air* 0 21 Intake/Output Intake and Output 07/20/24 07:00 Intake Total 1350 ml Balance 1350 ml Intake IV Total 1350 ml Medications Current Medications Medications Dose Ordered Sig/Fransisco Route Start Time Stop Time Status Last Admin Dose Admin Ampicillin Sodium/ Sulbactam Sodium 3 gm/Sodium Chloride 100 ml @ 100 mls/hr DAILY IV 07/20/24 06:00 07/20/24 09:56 100 MLS/HR Sevelamer HCl 800 mg TIDWM PO 07/20/24 08:00 07/20/24 09:56 800 MG Multivit/Ca Carb/ B Cmplx/FA/Prenat 1 tab DAILY PO 07/20/24 10:00 07/20/24 09:56 1 TAB Azithromycin 250 ml @ 125 mls/hr DAILY@2200 IV 07/20/24 22:00 Carvedilol 3.125 mg Q12HR PO 07/20/24 10:00 Gabapentin 300 mg TID PO 07/20/24 06:00 07/20/24 07:08 300 MG Atorvastatin Calcium 20 mg HS PO 07/20/24 22:00 Insulin Human Regular HS SC 07/20/24 22:00 Insulin Human Regular AC SC 07/20/24 07:00 07/20/24 07:14 2 UNITS Dextrose 50 ml UD PRN IV 07/20/24 03:30 Acetaminophen/ Hydrocodone Bitart 1 tab Q4HP PRN PO 07/20/24 03:30 Ondansetron HCl 4 mg Q4HP PRN IV 07/20/24 03:30 Docusate Sodium 100 mg BIDPRN PRN PO 07/20/24 03:30 Acetaminophen 650 mg Q6HP PRN PO 07/20/24 03:30 Lactulose 30 ml DAILY PO 07/20/24 10:00 Diagnostic Test (Pha) 1 strip ACHS 07/20/24 07:00 07/20/24 07:09 1 STRIP Nitroglycerin 0.4 mg Q5MINP PRN SL 07/20/24 04:45 Morphine Sulfate 2 mg Q30M PRN IV 07/20/24 04:45 Famotidine 20 mg DAILY IV 07/20/24 10:00 07/20/24 09:57 20 MG Apixaban 5 mg BID PO 07/20/24 10:00 07/20/24 09:57 5 MG Midodrine 10 mg QPM PO 07/20/24 18:00 UNV Guaifenesin/ Dextromethorphan 10 ml Q4HP PRN PO 07/20/24 11:30 UNV Laboratory Results Laboratory Tests 07/20/24 05:34 Chemistry Test 07/19/24 20:14 07/20/24 05:34 Albumin 3.8 g/dL (3.2-4.8) 3.8 g/dL (3.2-4.8) Calcium Level 8.1 mg/dL (8.7-10.4) L 8.0 mg/dL (8.7-10.4) L Total Protein 6.3 g/dL (5.7-8.2) 6.3 g/dL (5.7-8.2) Lipid panel Test 07/19/24 20:14 Lipase 47 U/L (12-53) Cardiac Markers Test 07/19/24 20:14 B-Type Natriuretic Peptide 241.22 pg/mL (0-100) LFT Test 07/19/24 20:14 07/20/24 05:34 Alanine Aminotransferase (ALT) 27 U/L (7-40) 21 U/L (7-40) Alkaline Phosphatase 125 U/L (46-116) H 111 U/L (46-116) Aspartate Amino Transferase (AST) 28 U/L (13-40) 15 U/L (13-40) Total Bilirubin 0.5 mg/dL (0.2-1.0) 0.6 mg/dL (0.2-1.0) Labs and/or images reviewed: Labs reviewed by me, Image(s) reviewed by me Assessment/Plan Assessment/Plan Syncope unknown etiology: Cardiology consult Neurology consult: CT head negative Acute Metabolic encephalopathy Atrial fibrillation: Eliquis Leukocytosis, unspecified Elevated lactic acid level Hyponatremia Lactic acidosis Pneumonia, unspecified organism: ER physician started on Unasyn End stage renal disease on peritoneal dialysis: Consult by appreciated Hyperglycemia due to diabetes mellitus Time spent 70 minutes Patient is full code Advanced care planning time 20 mts Plan discussed with: Patient Date of Service: Jul 20, 2024 Billing Provider: JOCELIN YEAGER MD Common Visit Codes: [id number] CARE 30-74 MIN JOCELIN YEAGER MD Jul 20, 2024 12:34
[2024-07-20] MEDS: cefTRIAXone 1GM/50ML D5W 50 ML IV ONE (13:15)
[2024-07-20] MEDS: HYDROcodone-ACET 5/325MG TAB PO PRN (14:05)
[2024-07-20] MEDS: guaiFENesin-DM 100/10mg/5ml SYR PO PRN (14:06)
[2024-07-20 16:08] LABS: COVID19 ANTIGEN SOFIA FIA NEGATIVE (NEGATIVE); Rapid Influenza A Negative (Negative); Rapid Influenza B Negative (Negative)
[2024-07-20] MEDS: MIDODRINE HCL 10 MG TAB PO SCH (18:17)
[2024-07-20] MEDS: ATORVASTATIN 20 MG TAB PO SCH (21:28)
[2024-07-20] MEDS: AZITHROMYCIN 500MG/ 250ML 250 ML IV SCH (21:29)
--- NOTE | 2024-07-20 22:21 | DVHINCON2 ---
Date of service: Jul 20, [address] Dubon Reason for Consultation Syncope, dialysis patient History of Present Illness Mr. Johnson is a 68 years old right-handed gentleman with a history of hypertension, diabetes, congestive heart failure, AFib, end-stage kidney failure on peritoneal dialysis, obesity, chronic low back pain, he came to the [facility] on 07/19/2024 for syncopal events. At this time, he was alert and fully oriented, he provided the following history On 07/19/2024, when he was sitting and eating at home, he had feeling of a shock and a noise inside the head, his whole-body was frozen, and he could not breath, move or speak, he had confusion feeling, he collapsed but he did not lose his consciousness. He had another similar event when he was living his whole with his walker without loss of consciousness Towards the end of 05/2024, he had a similar event that was associated with loss of consciousness for a few seconds. 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 He was on gabapentin t.i.d., but has been cut down to once a day in the evening with good results He was obese, but he does not snore. 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 Family History Hypertension, diabetes Social History He was a tobacco smoker, but denies a history of alcohol or recreational substance abuse Allergies: Coded Allergies: NO KNOWN ALLERGIES (Unverified , 07/20/24) Home Meds Reported Medications Sevelamer HCl (Sevelamer Hydrochloride) 400 Mg Tab, 400 MG PO, TAB 07/20/24 Tamsulosin HCl (Tamsulosin Hydrochloride) 0.4 Mg Cap, 0.4 MG PO, CAP 07/20/24 Carvedilol (COREG) 12.5 Mg Tab, 12.5 MG OR, TAB 07/20/24 Amlodipine Besylate (NORVASC TABLET) 5 Mg Tb, 1 TAB PO DAILY, #30 TAB 5 Refills 07/20/24 Gabapentin (Once-Daily) (Gabapentin) 300 Mg Tab, 300 MG PO, TAB 07/20/24 Atorvastatin Calcium (ATORVASTATIN CALCIUM) 20 Mg Tab, 1 TAB PO DAILY, #30 TAB 5 Refills 07/20/24 Repaglinide (REPAGLINIDE) 1 Mg Tab, 1 MG OR, TAB 07/20/24 Spironolactone (Spironolactone) 25 Mg Tab, 1 TAB PO DAILY, #90 TAB 1 Refill 07/20/24 Omeprazole (Omeprazole) 20 Mg Cap, 20 MG PO, CAP 07/20/24 Cinacalcet HCl (Cinacalcet Hydrochloride) 30 Mg Tab, 30 MG PO, TAB 07/20/24 Apixaban Base (ELIQUIS) 5 Mg Tab, 5 MG PO BID, TAB 07/20/24 Albuterol Sulfate (Ventolin) 2.5 Mg/0.5 Ml Nb, 1 VIAL NEB Q6HR, #120 VIAL 5 Refills 07/20/24 Current Medications Current Medications Medications (Trade) Dose Ordered Sig/Fransisco Route PRN Reason Start Time Stop Time Status Last Admin Ampicillin Sodium/ Sulbactam Sodium 3 gm/Sodium Chloride 100 ml @ 100 mls/hr DAILY IV 07/20/24 06:00 07/20/24 13:10 DC 07/20/24 09:56 Sevelamer HCl (Renagel) 800 mg TIDWM PO 07/20/24 08:00 07/20/24 18:17 Multivit/Ca Carb/ B Cmplx/FA/Prenat (Nephro-Peace Tablet) 1 tab DAILY PO 07/20/24 10:00 07/20/24 09:56 Azithromycin 250 ml @ 125 mls/hr DAILY@2200 IV 07/20/24 22:00 07/20/24 21:29 Carvedilol (Coreg Tablet) 3.125 mg Q12HR PO 07/20/24 10:00 07/20/24 21:28 Gabapentin (Neurontin Capsule) 300 mg TID PO 07/20/24 06:00 07/20/24 21:27 Atorvastatin Calcium (Lipitor) 20 mg HS PO 07/20/24 22:00 07/20/24 21:28 Diagnostic Test (Pha) (Accu-Chek Comfort Curve T) 1 strip ACHS 07/20/24 07:00 07/20/24 05:36 DC Insulin Human Regular (InsuLIN R) HS SC 07/20/24 22:00 07/20/24 21:41 Insulin Human Regular (InsuLIN R) AC SC 07/20/24 07:00 07/20/24 07:14 Dextrose 50 ml UD PRN IV Blood Sugar LESS THAN 60 07/20/24 03:30 Acetaminophen/ Hydrocodone Bitart (Casper 5/325MG Tab) 1 tab Q4HP PRN PO MODERATE PAIN (4-6 PAIN SCALE) 07/20/24 03:30 07/20/24 14:05 Ondansetron HCl (Zofran) 4 mg Q4HP PRN IV NAUSEA / VOMITING 07/20/24 03:30 Docusate Sodium (Colace Capsule) 100 mg BIDPRN PRN PO FOR CONSTIPATION 07/20/24 03:30 Acetaminophen (Tylenol Tablet) 650 mg Q6HP PRN PO PAIN SCALE 1-3 OR TEMP>100.4 07/20/24 03:30 Lactulose 30 ml DAILY PO 07/20/24 10:00 Diagnostic Test (Pha) (Accu-Chek Comfort Curve T) 1 strip ACHS 07/20/24 07:00 07/20/24 21:42 Insulin Human Regular (InsuLIN R) HS SC 07/20/24 22:00 07/20/24 05:38 DC Insulin Human Regular (InsuLIN R) AC SC 07/20/24 07:00 07/20/24 05:38 DC Dextrose 50 ml UD PRN IV Blood Sugar LESS THAN 60 07/20/24 04:45 07/20/24 05:38 DC Nitroglycerin (Ntrostat Sublingual) 0.4 mg Q5MINP PRN SL FOR CHEST PAIN 07/20/24 04:45 Morphine Sulfate 2 mg Q30M PRN IV FOR CHEST PAIN 07/20/24 04:45 Famotidine (Pepcid Injection) 20 mg DAILY IV 07/20/24 10:00 07/20/24 09:57 Apixaban (Eliquis) 5 mg BID PO 07/20/24 10:00 07/20/24 21:28 Midodrine (Proamatine Tablet) 10 mg QPM PO 07/20/24 18:00 07/20/24 18:17 Guaifenesin/ Dextromethorphan (Robitussin-Dm Liquid) 10 ml Q4HP PRN PO FOR COUGH 07/20/24 11:30 07/20/24 18:18 Ceftriaxone Sodium 50 ml @ 100 mls/hr DAILY@09 IV 07/21/24 09:00 Review of Systems As above, the other systems are negative Vital Signs Vital Signs Date Time Temp Pulse Resp B/P (MAP) Pulse Ox O2 Delivery O2 Flow Rate FiO2 07/20/24 21:28 72 139/64 07/20/24 21:00 97.4 18 100 97.4 07/20/24 08:00 Nasal Cannula* 2 28 Physical Exam GENERAL EXAM: General: the patient is well developed and nourished. No acute distress. HEENT: Normocephalic, neck is supple, no carotid bruits. No mass. RESPIRATORY: Normal respiratory effort with symmetrical lung expansion. Lungs clear to auscultation. CARDIOVASCULAR: Regular rate and rhythm with no murmurs. S1, S2. ABDOMEN: Soft, nontender, normal bowel sound NEUROLOGICAL: MENTAL STATUS: Awake and alert. Oriented to person, place, time and general circumstances. Able to give personal history. SPEECH, LANGUAGE, HIGHER CORTICAL FUNCTION: no aphasia or dysathria. CRANIAL NERVES: #2: Intact visual welch to confrontation. The optic discs were sharp. #3,4,6: Pupils are equal, round and reactive. EOMs full and conjugate. Nod nystagmus. #5: Facial sensation intact in all three divisions bilaterally. Mandibular str ength intact. #7: Facial muscles symmetrical and strength intact. #8: Hearing grossly normal to voice. #9,10: Uvula and soft palate rise in the midline. Swallow and voice are normal. #11: Trapezius and sternomastoid strength intact bilaterally. #12: Tongue midline. No fasciculations or atrophy. SENSATION: Sensation to touch and pinprick is diminished distally in the lower extremities MOTOR: Normal tone in the upper and lower extremity. Normal muscle bulk. No fasciculations. No abnormal movements or posturing. Muscle strength of the major groups in the upper extremities is 5/5. Muscle strength of the major groups in the lower extremities is 5/5. REFLEXES: Deep tendon reflexes asymmetric diminished in the lower extremities. No pathological reflexes. CEREBELLAR/COORDINATION: Finger to nose is normal bilaterally. GAIT/STATION: deferred. Labs/Diagnostic Data Labs Test 07/20/24 21:34 07/20/24 15:22 07/20/24 05:34 07/19/24 23:15 Range/Units POC Glucose 219 H 70-106 mg/dl Influenza Type A Antigen Negative Negative Influenza Type B Antigen Negative Negative SARS-CoV-2 Antigen (Rapid) Negative NEGATIVE White Blood Count 10.8 4.4-10.8 10^3/uL Red Blood Count 3.44 L 4.5-5.90 10^6/uL Hemoglobin 10.4 L 13.5-17.5 g/dL Hematocrit 29.7 #L 41.0-53.0 % Mean Corpuscular Volume 86.4 80.0-100.0 fL Mean Corpuscular Hemoglobin 30.3 28.0-32.0 pg Mean Corpuscular Hemoglobin Concent 35.1 32.0-36.0 g/dL Red Cell Distribution Width 14.5 H 11.8-14.3 % Platelet Count 189 140-450 10^3/uL Mean Platelet Volume 7.0 6.9-10.8 fL Neutrophils (%) (Auto) 75.6 37.0-80.0 % Lymphocytes (%) (Auto) 12.6 10.0-50.0 % Monocytes (%) (Auto) 8.2 0.0-12.0 % Eosinophils (%) (Auto) 3.0 0.0-7.0 % Basophils (%) (Auto) 0.6 0.0-2.0 % Neutrophils # (Auto) 8.1 1.6-8.6 10 ^3/uL Lymphocytes # (Auto) 1.4 0.4-5.4 10 ^3/uL Monocytes # (Auto) 0.9 0-1.3 10 ^3/uL Eosinophils # (Auto) 0.3 0-0.8 10 ^3/uL Basophils # (Auto) 0.1 0-0.2 10 ^3/uL Nucleated Red Blood Cells 0.0 % Sodium Level 131 L 136-145 mmol/L Potassium Level 3.6 3.5-5.1 mmol/L Chloride Level 94 L 98-107 mmol/L Carbon Dioxide Level 27 20-31 mmol/L Anion Gap 10 5-15 Blood Urea Nitrogen 53 H 9-23 mg/dL Creatinine 7.71 H 0.700-1.30 mg/dL Glomerular Filtration Rate Calc 7 >90 mL/min BUN/Creatinine Ratio 6.9 L 10.0-20.0 Serum Glucose 139 H 74-106 mg/dL Calcium Level 8.0 L 8.7-10.4 mg/dL Total Bilirubin 0.6 0.2-1.0 mg/dL Aspartate Amino Transferase (AST) 15 13-40 U/L Alanine Aminotransferase (ALT) 21 7-40 U/L Alkaline Phosphatase 111 46-116 U/L Total Protein 6.3 5.7-8.2 g/dL Albumin 3.8 3.2-4.8 g/dL Troponin I High Sensitivity 44 </=54 ng/L Test 07/19/24 22:13 07/19/24 20:14 Range/Units Lactic Acid Level 1.9 0.4-2.0 mmol/L B-Type Natriuretic Peptide 241.22 0-100 pg/mL Lipase 47 12-53 U/L Assessment Syncopal event x 3, one was with loss of consciousness briefly ? Syncope ? TIA ? Partial simple/partial complex seizure Diabetic polyneuropathy Restless leg syndrome Iron deficiency Obesity Plan/Recommendation Monitoring Supportive treatment Telemetry Vitamin B12, folic acid, TSH, FT4 Iron panel, ferritin EEG MR brain scan Discontinue gabapentin A trial of Lyrica 50 mg HS for polyneuropathy/restless legs syndrome He was aware of foot care and his instead his foot every day More recommendation per clinical course The case was discussed with his nurse Progress poor This medical document was created using an electronic medical record system with [employer] system. Although this document has been carefully reviewed, there may still be some phonetic and typographical errors. These areas are purely typographical due to imperfections of the software programs, and do not reflect any compromise in the patient's medical care. Plan discussed with: Patient, Other CRISTINA WHITMAN MD Jul 20, 2024 22:21
[2024-07-20 23:41] LABS: % Iron Saturation 11.9 % (20-55)
[2024-07-21] VITALS (12 sets, daily range): BP systolic 119–129; BP diastolic 60–82; PULSE 61–98; RESP 17–20; TEMP 97.5–98.4; O2SAT 90–98
--- NOTE | 2024-07-21 00:32 | DVHINCON2 ---
Date of service: Jul 20, 2024 Referring Physician Jagdish Reason for Consultation Syncope History of Present Illness This is a 68-year-old male with a PMH of HTN, DM, CHF and end-stage renal disease on home peritoneal dialysis presents to the ED with a complaint of syncope x 2 onset earlier today. Patient states that around noon today he was eating a burrito then states that he felt "like my head exploded" and "then I couldn't speak, like I was paralyzed". Patient reports that his tried getting him to speak and was sternal rubbing him, but patient states that he could not speak. Patient mentions that he then had a syncopal episode. Patient reports that he was recently prescribed Eliquis and that is when the onset of the syncopal episodes began as he has had this happen before in the past. Patien t denies hitting his head or other neurological symptoms at this time. Patient was hypotensive on arrival. 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 Chest x-ray shows possible bronchitic changes correlate with clinical symptomatology. Patient was admitted to the hospital. I am asked to consult on this patient. Allergies: Coded Allergies: NO KNOWN ALLERGIES (Unverified , 07/20/24) Home Meds Reported Medications Sevelamer HCl (Sevelamer Hydrochloride) 400 Mg Tab, 400 MG PO, TAB 07/20/24 Tamsulosin HCl (Tamsulosin Hydrochloride) 0.4 Mg Cap, 0.4 MG PO, CAP 07/20/24 Carvedilol (COREG) 12.5 Mg Tab, 12.5 MG OR, TAB 07/20/24 Amlodipine Besylate (NORVASC TABLET) 5 Mg Tb, 1 TAB PO DAILY, #30 TAB 5 Refills 07/20/24 Gabapentin (Once-Daily) (Gabapentin) 300 Mg Tab, 300 MG PO, TAB 07/20/24 Atorvastatin Calcium (ATORVASTATIN CALCIUM) 20 Mg Tab, 1 TAB PO DAILY, #30 TAB 5 Refills 07/20/24 Repaglinide (REPAGLINIDE) 1 Mg Tab, 1 MG OR, TAB 07/20/24 Spironolactone (Spironolactone) 25 Mg Tab, 1 TAB PO DAILY, #90 TAB 1 Refill 07/20/24 Omeprazole (Omeprazole) 20 Mg Cap, 20 MG PO, CAP 07/20/24 Cinacalcet HCl (Cinacalcet Hydrochloride) 30 Mg Tab, 30 MG PO, TAB 07/20/24 Apixaban Base (ELIQUIS) 5 Mg Tab, 5 MG PO BID, TAB 07/20/24 Albuterol Sulfate (Ventolin) 2.5 Mg/0.5 Ml Nb, 1 VIAL NEB Q6HR, #120 VIAL 5 Refills 07/20/24 Current Medications Current Medications Medications (Trade) Dose Ordered Sig/Fransisco Route PRN Reason Start Time Stop Time Status Last Admin Ampicillin Sodium/ Sulbactam Sodium 3 gm/Sodium Chloride 100 ml @ 100 mls/hr DAILY IV 07/20/24 06:00 07/20/24 13:10 DC 07/20/24 09:56 Sevelamer HCl (Renagel) 800 mg TIDWM PO 07/20/24 08:00 07/20/24 18:17 Multivit/Ca Carb/ B Cmplx/FA/Prenat (Nephro-Peace Tablet) 1 tab DAILY PO 07/20/24 10:00 07/20/24 09:56 Azithromycin 250 ml @ 125 mls/hr DAILY@2200 IV 07/20/24 22:00 07/20/24 21:29 Carvedilol (Coreg Tablet) 3.125 mg Q12HR PO 07/20/24 10:00 07/20/24 21:28 Gabapentin (Neurontin Capsule) 300 mg TID PO 07/20/24 06:00 07/20/24 21:27 Atorvastatin Calcium (Lipitor) 20 mg HS PO 07/20/24 22:00 07/20/24 21:28 Diagnostic Test (Pha) (Accu-Chek Comfort Curve T) 1 strip ACHS 07/20/24 07:00 07/20/24 05:36 DC Insulin Human Regular (InsuLIN R) HS SC 07/20/24 22:00 Insulin Human Regular (InsuLIN R) AC SC 07/20/24 07:00 07/20/24 07:14 Dextrose 50 ml UD PRN IV Blood Sugar LESS THAN 60 07/20/24 03:30 Acetaminophen/ Hydrocodone Bitart (Colliers 5/325MG Tab) 1 tab Q4HP PRN PO MODERATE PAIN (4-6 PAIN SCALE) 07/20/24 03:30 07/20/24 14:05 Ondansetron HCl (Zofran) 4 mg Q4HP PRN IV NAUSEA / VOMITING 07/20/24 03:30 Docusate Sodium (Colace Capsule) 100 mg BIDPRN PRN PO FOR CONSTIPATION 07/20/24 03:30 Acetaminophen (Tylenol Tablet) 650 mg Q6HP PRN PO PAIN SCALE 1-3 OR TEMP>100.4 07/20/24 03:30 Lactulose 30 ml DAILY PO 07/20/24 10:00 Diagnostic Test (Pha) (Accu-Chek Comfort Curve T) 1 strip ACHS 07/20/24 07:00 07/20/24 17:06 Insulin Human Regular (InsuLIN R) HS SC 07/20/24 22:00 07/20/24 05:38 DC Insulin Human Regular (InsuLIN R) AC SC 07/20/24 07:00 07/20/24 05:38 DC Dextrose 50 ml UD PRN IV Blood Sugar LESS THAN 60 07/20/24 04:45 07/20/24 05:38 DC Nitroglycerin (Ntrostat Sublingual) 0.4 mg Q5MINP PRN SL FOR CHEST PAIN 07/20/24 04:45 Morphine Sulfate 2 mg Q30M PRN IV FOR CHEST PAIN 07/20/24 04:45 Famotidine (Pepcid Injection) 20 mg DAILY IV 07/20/24 10:00 07/20/24 09:57 Apixaban (Eliquis) 5 mg BID PO 07/20/24 10:00 07/20/24 21:28 Midodrine (Proamatine Tablet) 10 mg QPM PO 07/20/24 18:00 07/20/24 18:17 Guaifenesin/ Dextromethorphan (Robitussin-Dm Liquid) 10 ml Q4HP PRN PO FOR COUGH 07/20/24 11:30 07/20/24 18:18 Ceftriaxone Sodium 50 ml @ 100 mls/hr DAILY@09 IV 07/21/24 09:00 Review of Systems Constitutional: reports: weakness; denies: chills, diaphoresis, fatigue, fever, malaise, sweats, others EENTM: denies: blurred vision, double vision, ear bleeding, ear discharge, ear drainage, ear pain, ear ringing, eye pain, eye redness, hearing loss, mouth pain, mouth swelling, nasal discharge, nose bleeding, nose congestion, nose pain, photophobia, tearing, throat pain, throat swelling, voice changes, others Respiratory: denies: cough, hemoptysis, orthopnea, SOB at rest, shortness of breath, SOB with excertion, stridor, wheezing, others Cardiovascular: reports: syncope; denies: chest pain, dizzy spells, diaphoresis, Dyspnea on exertion, edema, irregular heart beat, left arm pain, lightheadedness, palpitations, PND, others Gastrointestinal: denies: abdomen distended, abdominal pain, blood streaked bowels, constipated, diarrhea, dysphagia, difficulty swallowing, hematemesis, melena, nausea, poor appetite, poor fluid intake, rectal bleeding, rectal pain, vomiting, others Genitourinary: denies: burning, dysuria, flank pain, frequency, hematuria, incontinence, penile discharge, penile sore, pain, testicle pain, testicle swelling, urgency, others Neurological: reports: dizziness, fainting; denies: headache, left sided numbness, left sided weakness, numbness, paresthesia, pre-existing deficit, right sided numbness, right sided weakness, seizure, speech problems, tingling, tremors, weakness, others Musculoskeletal: denies: back pain, gout, joint pain, joint swelling, muscle pain, muscle stiffness, neck pain, others Integumetry: denies: bruises, change in color, change in hair/nails, dryness, laceration, lesions, lumps, rash, wounds, others Allergic/Immunocompromised: denies: Difficulty Healing, Frequent Infections, Hives, Itching, others Hematologic/Lymphatic: denies: anemia, blood clots, easy bleeding, easy bruising, swollen glands, others Endocrine: denies: excessive hunger, excessive sweating, excessive thirst, excessive urination, flushing, intolerance to cold, intolerance to heat, unexplained weight gain, unexplained weight loss, others Psychiatric: denies: anxiety, bipolar disorder, depression, hopeless, panic disorder, schizophrenia, sleepless, suicidal, others All Other Systems: Reviewed and Negative Vital Signs Vital Signs Date Time Temp Pulse Resp B/P (MAP) Pulse Ox O2 Delivery O2 Flow Rate FiO2 07/20/24 21:28 72 139/64 07/20/24 21:00 97.4 18 100 97.4 07/20/24 08:00 Nasal Cannula* 2 28 Physical Exam GENERAL: Awake, alert, oriented. Obese LUNGS: Clear. CARDIOVASCULAR: Heart sounds are good. ABDOMEN: Soft. Labs/Diagnostic Data Labs Test 07/20/24 16:58 07/20/24 15:22 07/20/24 05:34 07/19/24 23:15 Range/Units POC Glucose 148 H 70-106 mg/dl Influenza Type A Antigen Negative Negative Influenza Type B Antigen Negative Negative SARS-CoV-2 Antigen (Rapid) Negative NEGATIVE White Blood Count 10.8 4.4-10.8 10^3/uL Red Blood Count 3.44 L 4.5-5.90 10^6/uL Hemoglobin 10.4 L 13.5-17.5 g/dL Hematocrit 29.7 #L 41.0-53.0 % Mean Corpuscular Volume 86.4 80.0-100.0 fL Mean Corpuscular Hemoglobin 30.3 28.0-32.0 pg Mean Corpuscular Hemoglobin Concent 35.1 32.0-36.0 g/dL Red Cell Distribution Width 14.5 H 11.8-14.3 % Platelet Count 189 140-450 10^3/uL Mean Platelet Volume 7.0 6.9-10.8 fL Neutrophils (%) (Auto) 75.6 37.0-80.0 % Lymphocytes (%) (Auto) 12.6 10.0-50.0 % Monocytes (%) (Auto) 8.2 0.0-12.0 % Eosinophils (%) (Auto) 3.0 0.0-7.0 % Basophils (%) (Auto) 0.6 0.0-2.0 % Neutrophils # (Auto) 8.1 1.6-8.6 10 ^3/uL Lymphocytes # (Auto) 1.4 0.4-5.4 10 ^3/uL Monocytes # (Auto) 0.9 0-1.3 10 ^3/uL Eosinophils # (Auto) 0.3 0-0.8 10 ^3/uL Basophils # (Auto) 0.1 0-0.2 10 ^3/uL Nucleated Red Blood Cells 0.0 % Sodium Level 131 L 136-145 mmol/L Potassium Level 3.6 3.5-5.1 mmol/L Chloride Level 94 L 98-107 mmol/L Carbon Dioxide Level 27 20-31 mmol/L Anion Gap 10 5-15 Blood Urea Nitrogen 53 H 9-23 mg/dL Creatinine 7.71 H 0.700-1.30 mg/dL Glomerular Filtration Rate Calc 7 >90 mL/min BUN/Creatinine Ratio 6.9 L 10.0-20.0 Serum Glucose 139 H 74-106 mg/dL Calcium Level 8.0 L 8.7-10.4 mg/dL Total Bilirubin 0.6 0.2-1.0 mg/dL Aspartate Amino Transferase (AST) 15 13-40 U/L Alanine Aminotransferase (ALT) 21 7-40 U/L Alkaline Phosphatase 111 46-116 U/L Total Protein 6.3 5.7-8.2 g/dL Albumin 3.8 3.2-4.8 g/dL Troponin I High Sensitivity 44 </=54 ng/L Test 07/19/24 22:13 07/19/24 20:14 Range/Units Lactic Acid Level 1.9 0.4-2.0 mmol/L B-Type Natriuretic Peptide 241.22 0-100 pg/mL Lipase 47 12-53 U/L Assessment Syncope unknown etiology. Acute metabolic encephalopathy. Atrial fibrillation. Leukocytosis. Elevated lactic acid level. Hyponatremia. Lactic acidosis. Pneumonia, unspecified organism. End stage renal disease on peritoneal dialysis. Hyperglycemia due to diabetes mellitus. Plan/Recommendation I agree with your ongoing assessment and care of plan. Telemetry Reviewed. Echocardiogram. Morphine and Colliers for pain management. Eliquis. Lipitor. Coreg. IV antibiotics as ordered. Nitro SL. Additional plan as per the hospital course. A total of 45 minutes was spent reviewing the patient record, examining the patient, making a diagnostic and therapeutic plan, discussing this plan with medical personnel, following up on diagnostic studies and following the patient for clinical stability excluding any and all procedures. At least 50% of this time was spent in direct, [id number] contact. Plan discussed with: Patient ROSALIE BYRNE MD Jul 20, 2024 21:31
--- NOTE | 2024-07-21 02:28 | DVHSR ---
APPROVED REPORT EXAM: LIMITED Two-dimensional and M-mode echocardiogram with Doppler and color Doppler. Blood Pressure: 99/51 mmHg INDICATION CHF exacerbation, unpecified RISK FACTORS Obesity: Height: 5'10, Weight: 253 DIMENSIONS LVDd (3.8-5.7cm)LA (2D)5.0 (1.9-4.0cm)Aortic Root (2.0-3.7cm) EF (%) 50.0 (55-70%)Rt. Atrium3.9 (1.9-4.0cm)Asc. Aorta cm IVSd (0.7-1.1cm)RV (D)3.4 (1.8-2.4cm) Mitral Valve MitralMitral Stenosis E wave0.81m/sMV Mean GR.mmHg A wavem/sMV Peak GR.52mmHg E/A ratio0.02D MVAcm2 Aortic Valve Aortic ValveAortic Stenosis V10.90m/Arleth Mean GR.5mmHg V21.49m/Arleth Peak GR.9mmHg LVOT Diameter2.4 (1.8-2.4cm)Doppler AVA2.73cm2 AI P 1/2 Kuca762.02ms Tricuspid Valve TR Velocity2.52m/s [id number] Other Information Quality : Technically LimitedRhythm : Technically limited study due to pt coughing non- stop Conclusion NORMAL LV EF IS 60% NORMAL RV FUNCTION NORMAL VALVES NO EFFUSION
[2024-07-21 06:09] LABS: Basophils # (auto) 0.1 10 ^3/uL (0-0.2); Basophils % (auto) 0.7 % (0.0-2.0); Eosinophils # (auto) 0.5 10 ^3/uL (0-0.8); Eosinophils % (auto) 5.7 % (0.0-7.0); Hematocrit 29.7 % (41.0-53.0); Hemoglobin 10.6 g/dL (13.5-17.5); Lymphocytes % (auto) 11.4 % (10.0-50.0); Mean Corpuscular Hemoglobin 30.5 pg (28.0-32.0); Mean Corpuscular Hgb Conc. 35.7 g/dL (32.0-36.0); Mean Corpuscular Volume 85.7 fL (80.0-100.0); Monocytes # (auto) 0.7 10 ^3/uL (0-1.3); Monocytes % (auto) 8.5 % (0.0-12.0); Neutrophils # (auto) 6.3 10 ^3/uL (1.6-8.6); Neutrophils % (auto) 73.7 % (37.0-80.0); Platelet Count (auto) 189 10^3/uL (140-450); Red Blood Cells 3.47 10^6/uL (4.5-5.90); Red Cell Distribution Width 14.4 % (11.8-14.3); White Blood Cell 8.6 10^3/uL (4.4-10.8)
[2024-07-21 06:21] LABS: Alanine Aminotransferase 24 U/L (7-40); Albumin 3.9 g/dL (3.2-4.8); Alkaline Phosphatase 105 U/L (46-116); Anion Gap 12 (5-15); Aspartate Aminotransferase 14 U/L (13-40); BUN/Creatinine Ratio 6.6 (10.0-20.0); Bilirubin, Total 0.5 mg/dL (0.2-1.0); Carbon Dioxide 26 mmol/L (20-31); Potassium 3.6 mmol/L (3.5-5.1); Total Protein 6.5 g/dL (5.7-8.2)
[2024-07-21 06:44] LABS: Blood Urea Nitrogen 45 mg/dL (9-23); Calcium 8.3 mg/dL (8.7-10.4); Chloride 89 mmol/L (98-107); Glucose 188 mg/dL (74-106); Phosphorus 5.7 mg/dL (2.4-5.1); Sodium 127 mmol/L (136-145)
--- NOTE | 2024-07-21 07:57 | DVHPN2 ---
Reviewed: Care Plan, H&P, Labs, Medications, Previous Orders, Radiology Changes from previous H/P or p: No Changes Eyes: No Pain, No Vision change, No Conjunctivae inflammation, No Eyelid inflammation, No Other, No Redness ENT: No Ear pain, No Ear discharge, No Nose pain, No Nose discharge, No Nose congestion, No Mouth pain, No Mouth swelling, No Throat pain, No Throat swelling, No Other Cardiovascular: No Chest Pain, No Palpitations, No Orthopnea, No Paroxysmal Noc. Dyspnea, No Edema, No Lt Headedness, No Other Respiratory: No Cough, No Dry, No Shortness of breath, No SOB with excertion, No Wheezing, No Hemoptysis, No Pleuritic Pain, No Sputum, No Other Gastrointestinal: No Nausea, No Vomiting, No Abdominal Pain, No Diarrhea, No Constipation, No Melena, No Hematochezia, No Other Genitourinary: No Dysuria, No Frequency, No Incontinence, No Hematuria, No Retention; Other (Peritoneal dialysis) Musculoskeletal: No other, No neck pain, No shoulder pain, No arm pain, No back pain, No hand pain, No leg pain, No foot pain Skin: No Rash, No Lesions, No Jaundice, No Bruising, No Other Objective Vitals Vital Signs Date Time Temp Pulse Resp B/P (MAP) Pulse Ox O2 Delivery O2 Flow Rate FiO2 07/21/24 05:00 98.2 72 20 120/71 (87) 94 98.2 07/20/24 20:15 Nasal Cannula* 2 28 Intake/Output Intake and Output 07/21/24 07:00 Intake Total 1770 ml Balance 1770 ml Intake Oral 1520 ml IV Total 250 ml # Voids 5 # Bowel Movements 4 Medications Current Medications Medications Dose Ordered Sig/Fransisco Route Start Time Stop Time Status Last Admin Dose Admin Sevelamer HCl 800 mg TIDWM PO 07/20/24 08:00 07/20/24 18:17 800 MG Multivit/Ca Carb/ B Cmplx/FA/Prenat 1 tab DAILY PO 07/20/24 10:00 07/20/24 09:56 1 TAB Azithromycin 250 ml @ 125 mls/hr DAILY@2200 IV 07/20/24 22:00 07/20/24 21:29 125 MLS/HR Carvedilol 3.125 mg Q12HR PO 07/20/24 10:00 07/20/24 21:28 3.125 MG Atorvastatin Calcium 20 mg HS PO 07/20/24 22:00 07/20/24 21:28 20 MG Insulin Human Regular HS SC 07/20/24 22:00 07/20/24 21:41 4 UNITS Insulin Human Regular AC SC 07/20/24 07:00 07/21/24 06:41 3 UNITS Dextrose 50 ml UD PRN IV 07/20/24 03:30 Acetaminophen/ Hydrocodone Bitart 1 tab Q4HP PRN PO 07/20/24 03:30 07/20/24 14:05 1 TAB Ondansetron HCl 4 mg Q4HP PRN IV 07/20/24 03:30 Docusate Sodium 100 mg BIDPRN PRN PO 07/20/24 03:30 Acetaminophen 650 mg Q6HP PRN PO 07/20/24 03:30 Lactulose 30 ml DAILY PO 07/20/24 10:00 Diagnostic Test (Pha) 1 strip ACHS 07/20/24 07:00 07/21/24 06:41 1 STRIP Nitroglycerin 0.4 mg Q5MINP PRN SL 07/20/24 04:45 Morphine Sulfate 2 mg Q30M PRN IV 07/20/24 04:45 Famotidine 20 mg DAILY IV 07/20/24 10:00 07/20/24 09:57 20 MG Apixaban 5 mg BID PO 07/20/24 10:00 07/20/24 21:28 5 MG Midodrine 10 mg QPM PO 07/20/24 18:00 07/20/24 18:17 10 MG Guaifenesin/ Dextromethorphan 10 ml Q4HP PRN PO 07/20/24 11:30 07/20/24 18:18 10 ML Ceftriaxone Sodium 50 ml @ 100 mls/hr DAILY@09 IV 07/21/24 09:00 Lorazepam 1 mg ONCE PRN IV 07/20/24 23:00 Pregabalin 50 mg HS PO 07/21/24 22:00 Laboratory Results Laboratory Tests 07/21/24 05:12 Chemistry Test 07/21/24 05:12 Albumin 3.9 g/dL (3.2-4.8) Calcium Level 8.3 mg/dL (8.7-10.4) L Phosphorus Level 5.7 mg/dL (2.4-5.1) H Total Protein 6.5 g/dL (5.7-8.2) LFT Test 07/21/24 05:12 Alanine Aminotransferase (ALT) 24 U/L (7-40) Alkaline Phosphatase 105 U/L (46-116) Aspartate Amino Transferase (AST) 14 U/L (13-40) Total Bilirubin 0.5 mg/dL (0.2-1.0) Labs and/or images reviewed: Labs reviewed by me, Image(s) reviewed by me Assessment/Plan Assessment/Plan Syncope unknown etiology: Cardiology consult Neurology consult: CT head negative Acute Metabolic encephalopathy Atrial fibrillation: Eliquis Leukocytosis, unspecified Elevated lactic acid level Hyponatremia Lactic acidosis Pneumonia, unspecified organism: Rocephin azithromycin End stage renal disease on peritoneal dialysis: Consult by appreciated Hyperglycemia due to diabetes mellitus Time spent 50 minutes Patient is full code Advanced care planning time 20 mts Plan discussed with: Patient My Orders Orders - JOCELIN YEAGER MD Procedure Category Date Status Time * Cardiology Consult CONS 07/20/24 Transmitted 12:20 * Neurology Consult CONS 07/20/24 Transmitted 12:28 Ceftriaxone 1gm/50ml PHA 07/21/24 In Process D5w (Rocephin) 09:00 Date of Service: Jul 21, 2024 Billing Provider: JOCELIN YEAGER MD Common Visit Codes: [id number] INP/OBS CARE(HIGH) JOCELIN YEAGER MD Jul 21, 2024 07:57
[2024-07-21] MEDS: cefTRIAXone 1GM/50ML D5W 50 ML IV SCH (08:48)
[2024-07-21] MEDS: LORazepam 2MG/ML-1ML VIAL IV PRN (09:10)
--- NOTE | 2024-07-21 11:59 | DVHPN2 ---
Progress Note Date Seen: Jul 21, 2024 Medical Necessity Reason Pt with a Central, PICC or Fol: No Subjective Patient reports: Feels better Objective vital signs Vital Sign Date Time Temp Pulse Resp B/P (MAP) Pulse Ox O2 Delivery O2 Flow Rate FiO2 07/21/24 09:00 97.8 89 19 129/73 (91) 93 97.8 07/20/24 20:15 Nasal Cannula* 2 28 Total Intake and Output 07/20/24 07/20/24 07/21/24 15:00 23:00 07:00 Intake Total 720 ml 1050 ml Balance 720 ml 1050 ml medications Current Medications Medications Dose Ordered Sig/Fransisco Route Start Time Stop Time Status Last Admin Dose Admin Sevelamer HCl 800 mg TIDWM PO 07/20/24 08:00 07/21/24 08:42 800 MG Multivit/Ca Carb/ B Cmplx/FA/Prenat 1 tab DAILY PO 07/20/24 10:00 07/21/24 08:42 1 TAB Azithromycin 250 ml @ 125 mls/hr DAILY@2200 IV 07/20/24 22:00 07/20/24 21:29 125 MLS/HR Carvedilol 3.125 mg Q12HR PO 07/20/24 10:00 07/21/24 08:47 3.125 MG Atorvastatin Calcium 20 mg HS PO 07/20/24 22:00 07/20/24 21:28 20 MG Insulin Human Regular HS SC 07/20/24 22:00 07/20/24 21:41 4 UNITS Insulin Human Regular AC SC 07/20/24 07:00 07/21/24 06:41 3 UNITS Dextrose 50 ml UD PRN IV 07/20/24 03:30 Acetaminophen/ Hydrocodone Bitart 1 tab Q4HP PRN PO 07/20/24 03:30 07/20/24 14:05 1 TAB Ondansetron HCl 4 mg Q4HP PRN IV 07/20/24 03:30 Docusate Sodium 100 mg BIDPRN PRN PO 07/20/24 03:30 Acetaminophen 650 mg Q6HP PRN PO 07/20/24 03:30 Lactulose 30 ml DAILY PO 07/20/24 10:00 Diagnostic Test (Pha) 1 strip ACHS 07/20/24 07:00 07/21/24 06:41 1 STRIP Nitroglycerin 0.4 mg Q5MINP PRN SL 07/20/24 04:45 Morphine Sulfate 2 mg Q30M PRN IV 07/20/24 04:45 Famotidine 20 mg DAILY IV 07/20/24 10:00 07/21/24 08:47 20 MG Apixaban 5 mg BID PO 07/20/24 10:00 07/21/24 08:42 5 MG Midodrine 10 mg QPM PO 07/20/24 18:00 07/20/24 18:17 10 MG Guaifenesin/ Dextromethorphan 10 ml Q4HP PRN PO 07/20/24 11:30 07/21/24 08:47 10 ML Ceftriaxone Sodium 50 ml @ 100 mls/hr DAILY@09 IV 07/21/24 09:00 07/21/24 08:48 100 MLS/HR Lorazepam 1 mg ONCE PRN IV 07/20/24 23:00 07/21/24 09:10 1 MG Pregabalin 50 mg HS PO 07/21/24 22:00 Examination: GENERAL:Normal, CVS:Abnormal, ABDOMEN:Normal laboratory and microbiology Laboratory Tests 07/21/24 05:12 Test 07/21/24 05:12 Range/Units Serum Glucose 188 H 74-106 mg/dL Problem List/Assessment/Plan Problem List/Assessment/Plan End-stage renal disease on peritoneal dialysis History of diabetes and high blood pressure Admitted for altered mental state in the setting of possible TIA rule out stroke Newly diagnosed atrial fibrillation iron deficiency anemia hyperphosphatemia echo EF 60% Continue home cycler regime, rec send drain fluid for cell count Phoslo oral iron lactulose BID ABX ointment on ABX per primary for PNA rate control and AC per primary Plan discussed with: Patient ARIANNA PIKE MD Jul 21, 2024 11:59
[2024-07-21] MEDS: LACTULOSE 20Gm/30ML SOLN PO SCH (12:00)
--- NOTE | 2024-07-21 12:25 | DVH ---
EXAMINATION: MRI BRAIN HEAD WO CONTRAST INDICATION: Syncope COMPARISON: None TECHNIQUE: Multiplanar, multisequence magnetic resonance imaging of the brain was performed without the use of i ntravenous contrast. FINDINGS: No evidence of acute or remote infarct. No intracranial hemorrhage. No mass effect. There is periventricular/deep white matter T2/FLAIR hyperintensity is nonspecific, but most commonly associated with chronic microvascular disease. The ventricles and sulci are normal in size for age. Clear basal cisterns. Flow voids in the major intracranial vessels are maintained. No abnormality of the orbits. Paranasal sinuses and mastoid air cells are clear. No abnormality of the visualized osseous structures and extracranial soft tissues. IMPRESSION: No acute infarct, intracranial hemorrhage, mass effect, or hydrocephalus.
[2024-07-21] MEDS: CALCIUM ACETATE 667 MG CAP PO SCH (12:35)
[2024-07-21] MEDS: FERROUS SULFATE 325mg EC TAB PO SCH (17:52)
[2024-07-21] MEDS: ALBUTEROL SULF 2.5 MG/0.5ML(0.5%) NEB SOLN NEB PRN (19:08)
[2024-07-21] MEDS: PREGABALIN 25 MG CAP PO SCH (21:09)
--- NOTE | 2024-07-21 23:59 | DVHPN2 ---
Progress Note - Dictate Date Seen: Jul 21, 2024 Medical Necessity Reason Pt with a Central, PICC or Fol: No Subjective Patient was seen and evaluated in follow up. Patient complains of generalized pain. HCT 29.7, NA 127, CL 89, BUN 45, COMMERCIAL ENERGY RATER 6.77, CA 8.3. MRI brain is WNL. Telemetry reviewed. vital signs Vital Sign Date Time Temp Pulse Resp B/P (MAP) Pulse Ox O2 Delivery O2 Flow Rate FiO2 07/21/24 09:00 97.8 89 19 129/73 (91) 93 97.8 07/20/24 20:15 Nasal Cannula* 2 28 Total Intake and Output 07/20/24 07/20/24 07/21/24 15:00 23:00 07:00 Intake Total 720 ml 1050 ml Balance 720 ml 1050 ml medications Current Medications Medications Dose Ordered Sig/Fransisco Route Start Time Stop Time Status Last Admin Dose Admin Sevelamer HCl 800 mg TIDWM PO 07/20/24 08:00 07/21/24 12:35 800 MG Multivit/Ca Carb/ B Cmplx/FA/Prenat 1 tab DAILY PO 07/20/24 10:00 07/21/24 08:42 1 TAB Azithromycin 250 ml @ 125 mls/hr DAILY@2200 IV 07/20/24 22:00 07/20/24 21:29 125 MLS/HR Carvedilol 3.125 mg Q12HR PO 07/20/24 10:00 07/21/24 08:47 3.125 MG Atorvastatin Calcium 20 mg HS PO 07/20/24 22:00 07/20/24 21:28 20 MG Insulin Human Regular HS SC 07/20/24 22:00 07/20/24 21:41 4 UNITS Insulin Human Regular AC SC 07/20/24 07:00 07/21/24 11:30 3 UNITS Dextrose 50 ml UD PRN IV 07/20/24 03:30 Acetaminophen/ Hydrocodone Bitart 1 tab Q4HP PRN PO 07/20/24 03:30 07/20/24 14:05 1 TAB Ondansetron HCl 4 mg Q4HP PRN IV 07/20/24 03:30 Docusate Sodium 100 mg BIDPRN PRN PO 07/20/24 03:30 Acetaminophen 650 mg Q6HP PRN PO 07/20/24 03:30 Diagnostic Test (Pha) 1 strip ACHS 07/20/24 07:00 07/21/24 11:30 1 STRIP Nitroglycerin 0.4 mg Q5MINP PRN SL 07/20/24 04:45 Morphine Sulfate 2 mg Q30M PRN IV 07/20/24 04:45 Famotidine 20 mg DAILY IV 07/20/24 10:00 07/21/24 08:47 20 MG Apixaban 5 mg BID PO 07/20/24 10:00 07/21/24 08:42 5 MG Midodrine 10 mg QPM PO 07/20/24 18:00 07/20/24 18:17 10 MG Guaifenesin/ Dextromethorphan 10 ml Q4HP PRN PO 07/20/24 11:30 07/21/24 08:47 10 ML Ceftriaxone Sodium 50 ml @ 100 mls/hr DAILY@09 IV 07/21/24 09:00 07/21/24 08:48 100 MLS/HR Lorazepam 1 mg ONCE PRN IV 07/20/24 23:00 07/21/24 09:10 1 MG Pregabalin 50 mg HS PO 07/21/24 22:00 Lactulose 30 ml BID PO 07/21/24 12:00 Ferrous Sulfate 325 mg BIDWM PO 07/21/24 18:00 Calcium Acetate 667 mg TIDWMEALS PO 07/21/24 12:00 07/21/24 12:35 667 MG objective GENERAL: Awake, alert, oriented. Obese LUNGS: Clear. CARDIOVASCULAR: Heart sounds are good. ABDOMEN: Soft. laboratory and microbiology Laboratory Tests 07/21/24 05:12 Test 07/21/24 05:12 Range/Units Serum Glucose 188 H 74-106 mg/dL Problem List Syncope unknown etiology. Acute metabolic encephalopathy. Atrial fibrillation. Leukocytosis. Elevated lactic acid level. Hyponatremia. Lactic acidosis. Pneumonia, unspecified organism. End stage renal disease on peritoneal dialysis. Hyperglycemia due to diabetes mellitus. Assessment/Plan Continued all current supportive medical care. Echocardiogram. Morphine and [place] for pain management. Eliquis. Lipitor. Coreg. IV antibiotics as ordered. Nitro SL. Additional plan as per the hospital course. Plan discussed with: Patient ROSALIE BYRNE MD Jul 21, 2024 14:33
[2024-07-22] VITALS (13 sets, daily range): BP systolic 106–136; BP diastolic 61–78; PULSE 62–105; RESP 16–20; TEMP 97.4–98.2; O2SAT 86–99
[2024-07-22 02:33] LABS: Body Fluid Red Blood Cells 0 CUMM (0-2000); Body Fluid White Blood Cells 29 CUMM (0-200)
[2024-07-22 06:44] LABS: Anion Gap 10 (5-15); Calcium 8.7 mg/dL (8.7-10.4); Carbon Dioxide 28 mmol/L (20-31); Chloride 94 mmol/L (98-107); Potassium 3.3 mmol/L (3.5-5.1); Sodium 132 mmol/L (136-145)
[2024-07-22 06:50] LABS: BUN/Creatinine Ratio 6.8 (10.0-20.0)
[2024-07-22 06:51] LABS: Blood Urea Nitrogen 43 mg/dL (9-23); Glucose 222 mg/dL (74-106)
[2024-07-22 10:39] LABS: Free T4 (Free Thyroxine) 1.61 ng/dL (0.89-1.76)
[2024-07-22 10:42] LABS: Ferritin 65.4 ng/mL (22-322)
[2024-07-22 10:43] LABS: Folate (Folic Acid) 20.97 ng/mL (>5.38)
--- NOTE | 2024-07-22 10:51 | DVHPN2 ---
Progress Note - Dictate Date Seen: Jul 22, 2024 Medical Necessity Reason Pt with a Central, PICC or Fol: No Subjective Mr. Johnson is a 68 years old right-handed gentleman with a history of hypertension, diabetes, congestive heart failure, AFib, end-stage kidney failure on peritoneal dialysis, obesity, chronic low back pain, he came to the [facility]– [place] on [place]/19/[place]24 for syncopal events. I have seen and examined the patient, I have talked to his nurse, he was doing fine, alert and fully oriented, he reports no change in his nocturnal paresthesia in the lower extremities, no dizziness, otherwise no new complaint, he wants to go home WBC/HB/PLT/MCV, 07/20/2024: 10.8/10.4/189/86.4 BUN/CR, 07/20/2024: 53/7.71 Lactic acid, 07/19/2024: 3, 1.9 Liver function tests, 07/20/2024: Normal TSH, 07/20/2024: 1.44 Iron/TIBC/saturation, 07/20/2024: 28/235/11.9 EKG, 07/19/2024: Atrial fibrillation Telemetry, 07/20/2024: AFib CT head, 07/20/24: No acute intracranial abnormality vital signs Vital Sign Date Time Temp Pulse Resp B/P (MAP) Pulse Ox O2 Delivery O2 Flow Rate FiO2 07/22/24 09:45 97 Nasal Cannula* 2 28 07/22/24 09:00 97.9 85 17 107/64 (78) 97.9 Total Intake and Output 07/21/24 07/21/24 07/22/24 15:00 23:00 07:00 Intake Total 50 ml 300 ml 1050 ml Balance 50 ml 300 ml 1050 ml medications Current Medications Medications Dose Ordered Sig/Fransisco Route Start Time Stop Time Status Last Admin Dose Admin Sevelamer HCl 800 mg TIDWM PO 07/20/24 08:00 07/22/24 08:56 800 MG Multivit/Ca Carb/ B Cmplx/FA/Prenat 1 tab DAILY PO 07/20/24 10:00 07/22/24 08:57 1 TAB Azithromycin 250 ml @ 125 mls/hr DAILY@2200 IV 07/20/24 22:00 07/21/24 21:10 125 MLS/HR Carvedilol 3.125 mg Q12HR PO 07/20/24 10:00 07/22/24 08:57 3.125 MG Atorvastatin Calcium 20 mg HS PO 07/20/24 22:00 07/20/24 21:28 20 MG Insulin Human Regular HS SC 07/20/24 22:00 07/21/24 21:12 3 UNITS Insulin Human Regular AC SC 07/20/24 07:00 07/22/24 06:38 6 UNITS Dextrose 50 ml UD PRN IV 07/20/24 03:30 Acetaminophen/ Hydrocodone Bitart 1 tab Q4HP PRN PO 07/20/24 03:30 07/20/24 14:05 1 TAB Ondansetron HCl 4 mg Q4HP PRN IV 07/20/24 03:30 Docusate Sodium 100 mg BIDPRN PRN PO 07/20/24 03:30 Acetaminophen 650 mg Q6HP PRN PO 07/20/24 03:30 Diagnostic Test (Pha) 1 strip ACHS 07/20/24 07:00 07/22/24 06:31 1 STRIP Nitroglycerin 0.4 mg Q5MINP PRN SL 07/20/24 04:45 Morphine Sulfate 2 mg Q30M PRN IV 07/20/24 04:45 Famotidine 20 mg DAILY IV 07/20/24 10:00 07/22/24 09:05 20 MG Apixaban 5 mg BID PO 07/20/24 10:00 07/22/24 08:56 5 MG Midodrine 10 mg QPM PO 07/20/24 18:00 07/21/24 17:52 10 MG Guaifenesin/ Dextromethorphan 10 ml Q4HP PRN PO 07/20/24 11:30 07/21/24 08:47 10 ML Ceftriaxone Sodium 50 ml @ 100 mls/hr DAILY@09 IV 07/21/24 09:00 07/22/24 08:58 100 MLS/HR Lorazepam 1 mg ONCE PRN IV 07/20/24 23:00 07/21/24 09:10 1 MG Pregabalin 50 mg HS PO 07/21/24 22:00 07/21/24 21:09 50 MG Lactulose 30 ml BID PO 07/21/24 12:00 07/22/24 08:56 30 ML Ferrous Sulfate 325 mg BIDWM PO 07/21/24 18:00 07/22/24 08:57 325 MG Calcium Acetate 667 mg TIDWMEALS PO 07/21/24 12:00 07/22/24 08:56 667 MG Albuterol 2.5 mg Q4HPRN PRN NEB 07/21/24 15:15 07/21/24 19:08 2.5 MG objective General: the patient is well developed and nourished. No acute distress. MENTAL STATUS: Subjective. SPEECH, LANGUAGE, HIGHER CORTICAL FUNCTION: no aphasia or dysathria. CRANIAL NERVES: Pupils are equal, round and reactive. EOMs full and conjugate. Nod nystagmus. Facial sensation intact in all three divisions bilaterally. Mandibular strength intact. Facial muscles symmetrical and strength intact. SENSATION: Sensation to touch and pinprick is diminished distally in the lower extremities MOTOR: Normal tone in the upper and lower extremity. Normal muscle bulk. No fasciculations. No abnormal movements or posturing. Muscle strength of the major groups in the extremities is 5/5. REFLEXES: Deep tendon reflexes asymmetric diminished in the lower extremities. No pathological reflexes. CEREBELLAR/COORDINATION: Finger to nose is normal bilaterally. GAIT/STATION: deferred laboratory and microbiology Laboratory Tests 07/22/24 04:53 07/21/24 05:12 Test 07/22/24 04:53 Range/Units Serum Glucose 222 H 74-106 mg/dL Problem List Syncopal event x 3, one was with loss of consciousness briefly ? Syncope ? TIA ? Partial simple/partial complex seizure Diabetic polyneuropathy Restless leg syndrome Iron deficiency Obesity Assessment/Plan Monitoring Supportive treatment Telemetry Vitamin B12, folic acid Ferritin EEG MR brain scan Lyrica 50 mg HS for polyneuropathy/restless legs syndrome He was aware of foot care and his instead his foot every day More recommendation per clinical course This medical document was created using an electronic medical record system with [employer] dictation system. Although this document has been carefully reviewed, there may still be some phonetic and typographical errors. These areas are purely typographical due to imperfections of the software programs, and do not reflect any compromise in the patient's medical care. Prognosis poor Plan discussed with: Patient, Other CRISTINA WHITMAN MD Jul 22, 2024 10:51
--- NOTE | 2024-07-22 11:01 | ECG ---
[facility] Test Date: 2024-07-19 Test Time: 20:40:30 Pat Name: FERNANDO RANDLE Department: ER Room: 0204T A Gender: M Direct Selling Counselor: TAMIKA : 1955 Requested By: OLIVER WILLIAMSON Order Number: [id number] Reading MD: Matt Camacho Measurements Intervals [place] Rate: 85 P: 0 DC: 0 QRS: 42 QRSD: 111 T: 135 QT: 375 QTc: 446 Interpretive Statements Atrial fibrillation Incomplete left bundle branch block Electronically Signed On 07-24-2024 21:13:44 PDT by Matt Camacho Please click the below link to view image of tracing.
--- NOTE | 2024-07-22 13:41 | DVHPN2 ---
Subjective Patient was still reports having shortness of breath with ambulation. Reviewed: Care Plan, H&P, Labs, Medications, Previous Orders, Radiology Changes from previous H/P or p: No Changes General: Per HPI Eyes: No Pain, No Vision change, No Conjunctivae inflammation, No Eyelid inflammation, No Other, No Redness ENT: No Ear pain, No Ear discharge, No Nose pain, No Nose discharge, No Nose congestion, No Mouth pain, No Mouth swelling, No Throat pain, No Throat swelling, No Other Cardiovascular: No Chest Pain, No Palpitations, No Orthopnea, No Paroxysmal Noc. Dyspnea, No Edema, No Lt Headedness, No Other Respiratory: No Cough, No Dry, No Shortness of breath, No SOB with excertion, No Wheezing, No Hemoptysis, No Pleuritic Pain, No Sputum, No Other Gastrointestinal: No Nausea, No Vomiting, No Abdominal Pain, No Diarrhea, No Constipation, No Melena, No Hematochezia, No Other Genitourinary: No Dysuria, No Frequency, No Incontinence, No Hematuria, No Retention; Other (Peritoneal dialysis) Musculoskeletal: No other, No neck pain, No shoulder pain, No arm pain, No back pain, No hand pain, No leg pain, No foot pain Skin: No Rash, No Lesions, No Jaundice, No Bruising, No Other Objective Vitals Vital Signs Date Time Temp Pulse Resp B/P (MAP) Pulse Ox O2 Delivery O2 Flow Rate FiO2 07/22/24 13:00 98.2 68 19 121/69 (86) 96 98.2 07/22/24 09:45 Nasal Cannula* 2 28 Intake/Output Intake and Output 07/22/24 07:00 Intake Total 1400 ml Balance 1400 ml Intake Oral 1100 ml IV Total 300 ml # Voids 4 General Appearance: Alert, Oriented X3, Cooperative, mild distress HEENT: Atraumatic, PERRLA Lungs: Clear to auscultation, Normal air movement, Other (Nasal cannula at 2 liters/minute) Cardiovascular: Normal S1, Normal S2 Abdomen: Normal bowel sounds, Soft, No tenderness, No hepatospenomegaly, No masses Musculoskeletal: Normal sensory function, Normal motor function Neuro: Normal gait, Normal speech Skin: Dry, Intact Psych/Mental Status: Mental status NL, Mood NL Medications Current Medications Medications Dose Ordered Sig/Fransisco Route Start Time Stop Time Status Last Admin Dose Admin Sevelamer HCl 800 mg TIDWM PO 07/20/24 08:00 07/22/24 11:40 800 MG Multivit/Ca Carb/ B Cmplx/FA/Prenat 1 tab DAILY PO 07/20/24 10:00 07/22/24 08:57 1 TAB Azithromycin 250 ml @ 125 mls/hr DAILY@2200 IV 07/20/24 22:00 07/21/24 21:10 125 MLS/HR Carvedilol 3.125 mg Q12HR PO 07/20/24 10:00 07/22/24 08:57 3.125 MG Atorvastatin Calcium 20 mg HS PO 07/20/24 22:00 07/20/24 21:28 20 MG Insulin Human Regular HS SC 07/20/24 22:00 07/21/24 21:12 3 UNITS Insulin Human Regular AC SC 07/20/24 07:00 07/22/24 11:38 3 UNITS Dextrose 50 ml UD PRN IV 07/20/24 03:30 Acetaminophen/ Hydrocodone Bitart 1 tab Q4HP PRN PO 07/20/24 03:30 07/20/24 14:05 1 TAB Ondansetron HCl 4 mg Q4HP PRN IV 07/20/24 03:30 Docusate Sodium 100 mg BIDPRN PRN PO 07/20/24 03:30 Acetaminophen 650 mg Q6HP PRN PO 07/20/24 03:30 Diagnostic Test (Pha) 1 strip ACHS 07/20/24 07:00 07/22/24 11:41 1 STRIP Nitroglycerin 0.4 mg Q5MINP PRN SL 07/20/24 04:45 Morphine Sulfate 2 mg Q30M PRN IV 07/20/24 04:45 Famotidine 20 mg DAILY IV 07/20/24 10:00 07/22/24 09:05 20 MG Apixaban 5 mg BID PO 07/20/24 10:00 07/22/24 08:56 5 MG Midodrine 10 mg QPM PO 07/20/24 18:00 07/21/24 17:52 10 MG Guaifenesin/ Dextromethorphan 10 ml Q4HP PRN PO 07/20/24 11:30 07/21/24 08:47 10 ML Ceftriaxone Sodium 50 ml @ 100 mls/hr DAILY@09 IV 07/21/24 09:00 07/22/24 08:58 100 MLS/HR Lorazepam 1 mg ONCE PRN IV 07/20/24 23:00 07/21/24 09:10 1 MG Pregabalin 50 mg HS PO 07/21/24 22:00 07/21/24 21:09 50 MG Lactulose 30 ml BID PO 07/21/24 12:00 07/22/24 08:56 30 ML Ferrous Sulfate 325 mg BIDWM PO 07/21/24 18:00 07/22/24 08:57 325 MG Calcium Acetate 667 mg TIDWMEALS PO 07/21/24 12:00 07/22/24 11:40 667 MG Albuterol 2.5 mg Q4HPRN PRN NEB 07/21/24 15:15 07/21/24 19:08 2.5 MG Laboratory Results Laboratory Tests 07/21/24 05:12 07/22/24 04:53 Chemistry Test 07/22/24 04:53 Calcium Level 8.7 mg/dL (8.7-10.4) Labs and/or images reviewed: Labs reviewed by me, Image(s) reviewed by me Assessment/Plan Assessment/Plan Impression: -syncope with collapse -metabolic encephalopathy -community-acquired pneumonia, probable Gram-positive/Gram-negative etiology -acute hypoxic respiratory failure -end-stage renal disease with hemodialysis -obesity -atrial fibrillation -primary hypertension -sepsis Plan: -CT scan of the chest -V/Q scan -continue current antibiotic therapy -neurology consultation -echocardiogram: Reviewed -carotid Doppler study: Reviewed -continue anticoagulation -PUD, DVT prophylaxis -orthostatic blood pressures -repeat labs in a.m. -nephrology consultation Total time spent with patient discussing and formulating plan of care: 35 minutes. This medical document was created using an electronic medical record system with [employer] dictation system. Although this document has been carefully reviewed, there may still be some phonetic and typographical errors. These areas are purely typographical due to imperfections of the software programs, and do not reflect any compromise in the patient's medical care. Plan discussed with: Patient, Spouse, Daughter, Other (RN) My Orders Orders - MURTAZA JANE [employer]FORMAT[employer] LEADER Procedure Category Date Status Time Chest Xray 1 View XY 07/22/24 Logged 11:49 Nm Vq Scan NM 07/22/24 Verified 13:35 Orthostatic Vital ORDERS 07/22/24 Verified Signs 13:[address] 07/22/24 Verified 13:35 Basic Metabolic Panel LAB 07/23/24 Verified 04:00 Complete Blood Count LAB 07/23/24 Verified 04:00 Date of Service: Jul 22, 2024 Billing Provider: MURTAZA JANE NP Common Visit Codes: [id number] INP/OBS CARE(HIGH) MURTAZA JANE NP Jul 22, 2024 13:41
--- NOTE | 2024-07-22 14:00 | DVHPN2 ---
Progress Note Date Seen: Jul 22, 2024 Medical Necessity Reason Pt with a Central, PICC or Fol: No Subjective Patient reports: No new complaints Review of Systems: Deferred Objective vital signs Vital Sign Date Time Temp Pulse Resp B/P (MAP) Pulse Ox O2 Delivery O2 Flow Rate FiO2 07/22/24 13:00 98.2 68 19 121/69 (86) 96 98.2 07/22/24 09:45 Nasal Cannula* 2 28 Total Intake and Output 07/21/24 07/21/24 07/22/24 15:00 23:00 07:00 Intake Total 50 ml 300 ml 1050 ml Balance 50 ml 300 ml 1050 ml medications Current Medications Medications Dose Ordered Sig/Fransisco Route Start Time Stop Time Status Last Admin Dose Admin Sevelamer HCl 800 mg TIDWM PO 07/20/24 08:00 07/22/24 11:40 800 MG Multivit/Ca Carb/ B Cmplx/FA/Prenat 1 tab DAILY PO 07/20/24 10:00 07/22/24 08:57 1 TAB Azithromycin 250 ml @ 125 mls/hr DAILY@2200 IV 07/20/24 22:00 07/21/24 21:10 125 MLS/HR Carvedilol 3.125 mg Q12HR PO 07/20/24 10:00 07/22/24 08:57 3.125 MG Atorvastatin Calcium 20 mg HS PO 07/20/24 22:00 07/20/24 21:28 20 MG Insulin Human Regular HS SC 07/20/24 22:00 07/21/24 21:12 3 UNITS Insulin Human Regular AC SC 07/20/24 07:00 07/22/24 11:38 3 UNITS Dextrose 50 ml UD PRN IV 07/20/24 03:30 Acetaminophen/ Hydrocodone Bitart 1 tab Q4HP PRN PO 07/20/24 03:30 07/20/24 14:05 1 TAB Ondansetron HCl 4 mg Q4HP PRN IV 07/20/24 03:30 Docusate Sodium 100 mg BIDPRN PRN PO 07/20/24 03:30 Acetaminophen 650 mg Q6HP PRN PO 07/20/24 03:30 Diagnostic Test (Pha) 1 strip ACHS 07/20/24 07:00 07/22/24 11:41 1 STRIP Nitroglycerin 0.4 mg Q5MINP PRN SL 07/20/24 04:45 Morphine Sulfate 2 mg Q30M PRN IV 07/20/24 04:45 Famotidine 20 mg DAILY IV 07/20/24 10:00 07/22/24 09:05 20 MG Apixaban 5 mg BID PO 07/20/24 10:00 07/22/24 08:56 5 MG Midodrine 10 mg QPM PO 07/20/24 18:00 07/21/24 17:52 10 MG Guaifenesin/ Dextromethorphan 10 ml Q4HP PRN PO 07/20/24 11:30 07/21/24 08:47 10 ML Ceftriaxone Sodium 50 ml @ 100 mls/hr DAILY@09 IV 07/21/24 09:00 07/22/24 08:58 100 MLS/HR Lorazepam 1 mg ONCE PRN IV 07/20/24 23:00 07/21/24 09:10 1 MG Pregabalin 50 mg HS PO 07/21/24 22:00 07/21/24 21:09 50 MG Lactulose 30 ml BID PO 07/21/24 12:00 07/22/24 08:56 30 ML Ferrous Sulfate 325 mg BIDWM PO 07/21/24 18:00 07/22/24 08:57 325 MG Calcium Acetate 667 mg TIDWMEALS PO 07/21/24 12:00 07/22/24 11:40 667 MG Albuterol 2.5 mg Q4HPRN PRN NEB 07/21/24 15:15 07/21/24 19:08 2.5 MG Examination: GENERAL:Normal, CVS:Normal, ABDOMEN:Abnormal (distended ), NEURO:Normal laboratory and microbiology Laboratory Tests 07/22/24 04:53 07/21/24 05:12 Test 07/22/24 04:53 Range/Units Serum Glucose 222 H 74-106 mg/dL Problem List/Assessment/Plan Problem List/Assessment/Plan End-stage renal disease on peritoneal dialysis History of diabetes and high blood pressure Admitted for altered mental state in the setting of possible TIA rule out stroke Newly diagnosed atrial fibrillation iron deficiency anemia hyperphosphatemia echo EF 60% recs Continue home cycler regime, PD fluid for cell count--no evidence of peritonitis need i and o documentation Phoslo oral iron kcl replace laxatives use prn only Plan discussed with: Patient, Other My Orders My Orders Orders - ALYSE HERRERA MD Procedure Category Date Status Time Potassium Er Tablet PHA 07/22/24 Logged (Klor-Con Tablet) 14:00 ALYSE HERRERA MD Jul 22, 2024 14:00
--- NOTE | 2024-07-22 14:40 | DVH ---
Procedure: CT CHEST WITHOUT CONTRAST Reason for study/Clinical History: pna, hypoxia Comparison Study: None available at time of dictation. Exam Date: 07/22/2024 01:57 PM TECHNIQUE: Multidetector CT of the chest was performed from the lung apices to the upper abdomen with out the use of intravenous contract. Axial, coronal and sagittal multiplanar reformats were performed . Radiation Dose Information: CT Dose: CTDI volume is 26.33 mGy. Dose-length product is 977.74 mGy*cm The dose indicators for CT are the volume Computed Tomography (CT) Dose Index (CTDIvol) and the Dose Length Product (DLP), and are measured in units of mGy and mGy-cm, respectively. These indicators are not patient dose, but values generated from the CT scanner acquisition factors. The report includes radiation exposure data for exposures received during this examination. FINDINGS: Lower neck: Normal thyroid. Lungs: No focal consolidation, pleural effusion or pneumothorax. Heart/Vascular Structures: Normal heart size. Pericardial effusion. Scattered coronary artery calcifi cation Lymph Nodes: No adenopathy Pleura: No pleural effusion or significant pneumothorax. Musculoskeletal: No acute osseous abnormality. Calcification anterior longitudinal ligament consisten t with DISH. Soft tissues: Normal. Upper abdomen: Calcified gallstones IMPRESSION: 1. No infiltrates consolidations no pleural effusions. 2. Small pericardial effusion 3. Small ascites with nodular appearance to the surface of the liver suggesting cirrhotic liver disea se 4. Cholelithiasis. Radiation optimization: All CT scans at this facility use at least one of these dose optimization frank hniques: automated exposure control mA and/or kV adjustment per patient size (includes targeted exam s where dose is matched to clinical indication) or iterative reconstruction.
--- NOTE | 2024-07-22 15:54 | DVH ---
NUCLEAR MEDICINE VENTILATION/PERFUSION LUNG SCAN. INDICATION: PULMONARY EMBOLISM COMPARISON: None TECHNIQUE: Following intravenous demonstration of 6 millicuries of technetium 99m MAA, and inhalati on of 9 mCi of Xe 133 scintigrams were obtained in multiple projections of the lungs. FINDINGS: There is normal uptake of radionuclide on both the ventilation and perfusion portions of the examinat ion. No mismatched perfusion defects are demonstrated. Uptake is normally homogeneous. IMPRESSION: Low probability for PE.
[2024-07-22] MEDS: POTASSIUM CHL 20 Meq TABLET PO ONE (17:27)
--- NOTE | 2024-07-22 22:15 | DVHPN2 ---
Progress Note - Dictate Date Seen: Jul 22, 2024 Medical Necessity Reason Pt with a Central, PICC or Fol: No Subjective Patient was seen and evaluated in follow up. Patient is complaining of SOB with ambulation. CT chest shows no infiltrates consolidations no pleural effusions, small pericardial effusion, small ascites with nodular appearance to the surface of the liver suggesting cirrhotic liver disease, cholelithiasis. VQ scan is negative for PE. K 3.3, BUN 43, [place] 6.37. Telemetry reviewed. vital signs Vital Sign Date Time Temp Pulse Resp B/P (MAP) Pulse Ox O2 Delivery O2 Flow Rate FiO2 07/22/24 21:42 83 124/78 07/22/24 21:00 97.4 18 98 97.4 07/22/24 19:48 Room Air* 0 21 Total Intake and Output 07/21/24 07/21/24 07/22/24 15:00 23:00 07:00 Intake Total 50 ml 300 ml 1050 ml Balance 50 ml 300 ml 1050 ml medications Current Medications Medications Dose Ordered Sig/Fransisco Route Start Time Stop Time Status Last Admin Dose Admin Sevelamer HCl 800 mg TIDWM PO 07/20/24 08:00 07/22/24 17:16 800 MG Multivit/Ca Carb/ B Cmplx/FA/Prenat 1 tab DAILY PO 07/20/24 10:00 07/22/24 08:57 1 TAB Azithromycin 250 ml @ 125 mls/hr DAILY@2200 IV 07/20/24 22:00 07/22/24 21:40 125 MLS/HR Carvedilol 3.125 mg Q12HR PO 07/20/24 10:00 07/22/24 21:42 3.125 MG Atorvastatin Calcium 20 mg HS PO 07/20/24 22:00 07/22/24 21:42 20 MG Insulin Human Regular HS SC 07/20/24 22:00 07/22/24 21:43 4 UNITS Insulin Human Regular AC SC 07/20/24 07:00 07/22/24 17:26 3 UNITS Dextrose 50 ml UD PRN IV 07/20/24 03:30 Acetaminophen/ Hydrocodone Bitart 1 tab Q4HP PRN PO 07/20/24 03:30 07/20/24 14:05 1 TAB Ondansetron HCl 4 mg Q4HP PRN IV 07/20/24 03:30 Docusate Sodium 100 mg BIDPRN PRN PO 07/20/24 03:30 Acetaminophen 650 mg Q6HP PRN PO 07/20/24 03:30 Diagnostic Test (Pha) 1 strip ACHS 07/20/24 07:00 07/22/24 21:42 1 STRIP Nitroglycerin 0.4 mg Q5MINP PRN SL 07/20/24 04:45 Morphine Sulfate 2 mg Q30M PRN IV 07/20/24 04:45 Famotidine 20 mg DAILY IV 07/20/24 10:00 07/22/24 09:05 20 MG Apixaban 5 mg BID PO 07/20/24 10:00 07/22/24 21:42 5 MG Midodrine 10 mg QPM PO 07/20/24 18:00 07/22/24 17:16 10 MG Guaifenesin/ Dextromethorphan 10 ml Q4HP PRN PO 07/20/24 11:30 07/21/24 08:47 10 ML Ceftriaxone Sodium 50 ml @ 100 mls/hr DAILY@09 IV 07/21/24 09:00 07/22/24 08:58 100 MLS/HR Lorazepam 1 mg ONCE PRN IV 07/20/24 23:00 07/21/24 09:10 1 MG Pregabalin 50 mg HS PO 07/21/24 22:00 07/22/24 21:42 50 MG Lactulose 30 ml BID PO 07/21/24 12:00 07/22/24 21:41 30 ML Ferrous Sulfate 325 mg BIDWM PO 07/21/24 18:00 07/22/24 17:16 325 MG Calcium Acetate 667 mg TIDWMEALS PO 07/21/24 12:00 07/22/24 17:16 667 MG Albuterol 2.5 mg Q4HPRN PRN NEB 07/21/24 15:15 07/22/24 19:48 2.5 MG objective GENERAL: Awake, alert, oriented. Obese LUNGS: Clear. CARDIOVASCULAR: Heart sounds are good. ABDOMEN: Soft. laboratory and microbiology Laboratory Tests 07/22/24 04:53 07/21/24 05:12 Test 07/22/24 04:53 Range/Units Serum Glucose 222 H 74-106 mg/dL Problem List Syncope unknown etiology. Acute metabolic encephalopathy. Atrial fibrillation. Leukocytosis. Elevated lactic acid level. Hyponatremia. Lactic acidosis. Pneumonia, unspecified organism. End stage renal disease on peritoneal dialysis. Hyperglycemia due to diabetes mellitus. Assessment/Plan Continued all current supportive medical care. Echocardiogram. Morphine and [place] for pain management. Eliquis. Lipitor. Coreg. IV antibiotics as ordered. Nitro SL. Additional plan as per the hospital course. Plan discussed with: Patient ROSALIE BYRNE MD Jul 22, 2024 22:15
[2024-07-23 00:30] VITALS: BP 111/59; PULSE 79; RESP 20; TEMP 97.9; O2SAT 95
[2024-07-23 05:00] VITALS: BP 120/70; PULSE 80; RESP 20; TEMP 97.6; O2SAT 96
[2024-07-23 05:44] LABS: Basophils # (auto) 0.1 10 ^3/uL (0-0.2); Eosinophils # (auto) 0.3 10 ^3/uL (0-0.8); Eosinophils % (auto) 4.7 % (0.0-7.0); Hematocrit 31.8 % (41.0-53.0); Hemoglobin 10.8 g/dL (13.5-17.5); Lymphocytes % (auto) 15.6 % (10.0-50.0); Mean Corpuscular Hemoglobin 29.4 pg (28.0-32.0); Mean Corpuscular Volume 86.4 fL (80.0-100.0); Monocytes # (auto) 0.7 10 ^3/uL (0-1.3); Neutrophils # (auto) 4.5 10 ^3/uL (1.6-8.6); Neutrophils % (auto) 68.7 % (37.0-80.0); Nucleated Red Blood Cells % 0.1 %; Platelet Count (auto) 228 10^3/uL (140-450); Red Blood Cells 3.68 10^6/uL (4.5-5.90); Red Cell Distribution Width 14.3 % (11.8-14.3); White Blood Cell 6.5 10^3/uL (4.4-10.8)
[2024-07-23 05:56] LABS: Anion Gap 9 (5-15); Carbon Dioxide 27 mmol/L (20-31)
[2024-07-23 05:57] LABS: Calcium 8.9 mg/dL (8.7-10.4); Chloride 97 mmol/L (98-107); Potassium 3.3 mmol/L (3.5-5.1); Sodium 133 mmol/L (136-145)
[2024-07-23 06:02] LABS: BUN/Creatinine Ratio 6.4 (10.0-20.0)
[2024-07-23 06:03] LABS: Blood Urea Nitrogen 37 mg/dL (9-23); Glucose 199 mg/dL (74-106)
[2024-07-23 08:00] VITALS: PULSE 76
[2024-07-23 09:00] VITALS: BP 123/69; PULSE 69; RESP 17; TEMP 97.7; O2SAT 94
[2024-07-23] MEDS ORDERED: DEXT1SYP9 PO (10:23)
[2024-07-23] MEDS ORDERED: DOXY100C79 PO (10:23)
--- NOTE | 2024-07-23 10:30 | DVHDS2 ---
Discharge Summary Date of Admission Jul 20, 2024 at 04:34 Date of Discharge: Jul 23, 2024 Admitting Diagnosis Metabolic encephalopathy Labs/Diagnostic Data: Laboratory Results Test 07/23/24 05:41 07/23/24 04:31 07/21/24 22:50 07/21/24 05:12 POC Glucose 215 mg/dl (70-106) White Blood Count 6.5 10^3/uL (4.4-10.8) Red Blood Count 3.68 10^6/uL (4.5-5.90) Hemoglobin 10.8 g/dL (13.5-17.5) Hematocrit 31.8 % (41.0-53.0) Mean Corpuscular Volume 86.4 fL (80.0-100.0) Mean Corpuscular Hemoglobin 29.4 pg (28.0-32.0) Mean Corpuscular Hemoglobin Concent 34.0 g/dL (32.0-36.0) Red Cell Distribution Width 14.3 % (11.8-14.3) Platelet Count 228 10^3/uL (140-450) Mean Platelet Volume 7.0 fL (6.9-10.8) Neutrophils (%) (Auto) 68.7 % (37.0-80.0) Lymphocytes (%) (Auto) 15.6 % (10.0-50.0) Monocytes (%) (Auto) 10.0 % (0.0-12.0) Eosinophils (%) (Auto) 4.7 % (0.0-7.0) Basophils (%) (Auto) 1.0 % (0.0-2.0) Neutrophils # (Auto) 4.5 10 ^3/uL (1.6-8.6) Lymphocytes # (Auto) 1.0 10 ^3/uL (0.4-5.4) Monocytes # (Auto) 0.7 10 ^3/uL (0-1.3) Eosinophils # (Auto) 0.3 10 ^3/uL (0-0.8) Basophils # (Auto) 0.1 10 ^3/uL (0-0.2) Nucleated Red Blood Cells 0.1 % Sodium Level 133 mmol/L (136-145) Potassium Level 3.3 mmol/L (3.5-5.1) Chloride Level 97 mmol/L (98-107) Carbon Dioxide Level 27 mmol/L (20-31) Anion Gap 9 (5-15) Blood Urea Nitrogen 37 mg/dL (9-23) Creatinine 5.79 mg/dL (0.700-1.30) Glomerular Filtration Rate Calc 10 mL/min (>90) BUN/Creatinine Ratio 6.4 (10.0-20.0) Serum Glucose 199 mg/dL (74-106) Calcium Level 8.9 mg/dL (8.7-10.4) Body Fluid Source Peritoneal fluid Body Fluid WBC (Manual) 29 CUMM (0-200) Body Fluid RBC (Manual) 0 CUMM (0-2000) Body Fluid Mononuclear Cells 95 % Body Fluid Polymorphonuclear Cells 5 % (0-25) Phosphorus Level 5.7 mg/dL (2.4-5.1) Total Bilirubin 0.5 mg/dL (0.2-1.0) Aspartate Amino Transferase (AST) 14 U/L (13-40) Alanine Aminotransferase (ALT) 24 U/L (7-40) Alkaline Phosphatase 105 U/L (46-116) Total Protein 6.5 g/dL (5.7-8.2) Albumin 3.9 g/dL (3.2-4.8) Test 07/20/24 15:22 07/20/24 05:34 07/19/24 23:15 07/19/24 22:13 Influenza Type A Antigen Negative (Negative) Influenza Type B Antigen Negative (Negative) SARS-CoV-2 Antigen (Rapid) Negative (NEGATIVE) Iron Level 28 ug/dL (65-175) Total Iron Binding Capacity 235 ug/dL (250-425) Percent Iron Saturation 11.9 % (20-55) Ferritin 65.4 ng/mL (22-322) Vitamin B12 Level 996 pg/mL (211-911) Folic Acid 20.97 ng/mL (>5.38) Thyroid Stimulating Hormone (TSH) 1.44 uIU/mL (0.55-4.78) Free Thyroxine (T4) Calculated 1.61 ng/dL (0.89-1.76) Troponin I High Sensitivity 44 ng/L (</=54) Lactic Acid Level 1.9 mmol/L (0.4-2.0) Test 07/19/24 20:14 B-Type Natriuretic Peptide 241.22 pg/mL (0-100) Lipase 47 U/L (12-53) Other Laboratory Tests 07/23/24 04:31 Brief Hx & Hospital Course: History of Present Illness The patient is a 68-year-old male with past medical history of CHF, DM, end- stage renal disease on peritoneal dialysis and hypertension presented to [facility] ED for evaluation of syncopal episode. Patient states that around noon today he was eating a burrito when he felt exploded head, and "then couldn't speak, feeling paralyzed". Patient reports that his tried getting him to speak and was sternal rubbing him, but he could not speak, then had a syncopal episode. Patient reports that he was recently placed on Eliquis. Patient was seen and evaluated in the ED, laboratory data shows WBC 12.7, platelets 222, sodium 128, potassium 4.8, BUN 55, creatinine 7.64, GFR seven, glucose 222, calcium 8.1, BNP 241.22, lactic acid 3.0 trending down to 1.9, troponin 44, lipase 47, blood pressure 101/87, heart rate 85, temperature 97.8 F, O2 saturation 97% on oxygen. Head CT showed no acute intracranial abnormality. Please see medication orders section in the computer. On my assessment, patient denied chest pain, no headache, no dizziness, no diaphoresis, no shortness of breath, no diarrhea, no nausea, no vomiting, no fever, no chills. Patient was admitted for further evaluation and medical management. Course of hospitalization: Patient had MRI of the brain, CT scan of the head which were negative for any acute intracranial pathology. Patient had EEG, neurology consultation, without any acute findings. Patient was noted to require O2 supplementation. Patient does report having a history of obstructive sleep apnea, but has declined to use CPAP at home. O2 on room air was found to be 94%. Patient reports that he was had a chronic cough since April. Patient had CT scan of the chest which was negative for any acute pulmonary disease. Patient was found to have cholelithiasis as well as changes of cirrhosis of the liver, for which the patient reports he does have a history of alcohol use. V/Q scan was negative for pulmonary embolism. All these findings were discussed with the patient. Patient will be continued on antibiotic therapy in the form of doxycycline 100 mg p.o. b.i.d. for additional five days as well as being prescribed Robitussin DM for his cough. He is instructed to follow up with his PCP in 1-2 weeks. Patient will continue peritoneal dialysis as ordered. All questions answered. Physical examination General: Alert and Oriented x3. No acute distress. Well-nourished. Obesity Eyes: EOMI. Anicteric. HENT: Moist mucous membranes. Lungs: Clear to auscultation bilaterally. No accessory muscle use. Cardiovascular: Regular rate and rhythm. No murmur. No JVD. Abdomen: Soft, non-tender and non-distended. No palpable masses. Extremities: No edema. Non-tender. Skin: No rashes or lesions. Warm. Neurologic: No focal neurological deficits. CN II-XII grossly intact, but not individually tested. Psychiatric: Cooperative. Appropriate mood and affect. Total time spent with patient discussing and formulating plan of care: 35 minutes. This medical document was created using an electronic medical record system with [employer] dictation system. Although this document has been carefully reviewed, there may still be some phonetic and typographical errors. These areas are purely typographical due to imperfections of the software programs, and do not reflect any compromise in the patient's medical care. Consults/Reason for consult Neurology: Metabolic encephalopathy Nephrology: ESRD with peritoneal dialysis Condition at Discharge: Guarded Final Diagnosis/Problems List Acute hypoxic respiratory failure Second diagnosis: -syncope with collapse -metabolic encephalopathy -community-acquired pneumonia, probable Gram-positive/Gram-negative etiology -acute hypoxic respiratory failure -end-stage renal disease with hemodialysis -obesity -atrial fibrillation -primary hypertension -sepsis Discharge Disposition: Home Discharge Instruct/Medications Diet: Cardiac 2g Na,low cholest, Renal Activity: No Restrictions, As Tolerated Follow Up/Referral: PCP in 1-2 weeks Nephrology at next scheduled appointment Medications: Doxycycline 100 mg p.o. b.i.d. x5 days Robitussin DM, 5 mL for cough Continue all previous home medications 36 Discharge Statement: "Patient was advised to return to the ER or call 911 if any headaches, dizziness, shortness of breath, chest pain, abdominal pain, bleeding, fevers, or worsening of medical condition. Patient was counseled about treatment plan, medications, possible side effects, patientverbalized understanding. All questions were answered to the best of my ability. This discharge took greater then 30 minutes in planning, reviewing documentation, counseling the patient, and discussing with other team members." ASSESSMENT ASSESSMENT Assessment Acute hypoxic respiratory failure Date of Service: Jul 23, 2024 Billing Provider: MURTAZA JANE NP Common Visit Codes: 57929-ZAL/OBS DISCH DAY >30min MURTAZA JANE NP Jul 23, 2024 10:30
[2024-07-23] MEDS: POTASSIUM CHLORIDE 8 MEQ TAB PO ONE (11:42)
--- NOTE | 2024-07-23 14:44 | DVHPN2 ---
Progress Note - Dictate Date Seen: Jul 23, 2024 Medical Necessity Reason Pt with a Central, PICC or Fol: No Subjective Mr. Johnson is a 68 years old right-handed gentleman with a history of hypertension, diabetes, congestive heart failure, AFib, end-stage kidney failure on peritoneal dialysis, obesity, chronic low back pain, he came to the [facility] on 07/19/2024 for syncopal events. I have seen and examined the patient, I have talked to his nurse, the case was discussed with Fausto He is doing fine, alert and fully oriented, he reports no change in his nocturnal paresthesia in the lower extremities, no dizziness, otherwise no new complaint WBC/HB/PLT/MCV, 07/20/2024: 10.8/10.4/189/86.4 BUN/CR, 07/20/2024: 53/7.71 Lactic acid, 07/19/2024: 3, 1.9 Liver function tests, 07/20/2024: Normal Vitamin B12, 07/20/2024: 996 Folic acid 07/20/2024: 20.97 TSH, 07/20/2024: 1.44 Iron/TIBC/saturation, 07/20/2024: 28/235/11.9 Ferritin 07/19/24: 65.4 EKG, 07/19/2024: Atrial fibrillation Telemetry, 07/20/2024: AFib CT head, 07/20/24: No acute intracranial abnormality MRI headache, 07/21/2024: No acute infarct, intracranial hemorrhage, mass effect, or hydrocephalus vital signs Vital Sign Date Time Temp Pulse Resp B/P (MAP) Pulse Ox O2 Delivery O2 Flow Rate FiO2 07/23/24 12:34 89 126/73 07/23/24 09:00 97.7 17 94 97.7 07/23/24 07:37 Nasal Cannula* 2 28 Total Intake and Output 07/22/24 07/22/24 07/23/24 15:00 23:00 07:00 Intake Total 50 ml 480 ml 850 ml Balance 50 ml 480 ml 850 ml objective General: the patient is well developed and nourished. No acute distress. MENTAL STATUS: Subjective. SPEECH, LANGUAGE, HIGHER CORTICAL FUNCTION: no aphasia or dysathria. CRANIAL NERVES: Pupils are equal, round and reactive. EOMs full and conjugate. Nod nystagmus. Facial sensation intact in all three divisions bilaterally. Mandibular strength intact. Facial muscles symmetrical and strength intact. SENSATION: Sensation to touch and pinprick is diminished distally in the lower extremities MOTOR: Normal tone in the upper and lower extremity. Normal muscle bulk. No fasciculations. No abnormal movements or posturing. Muscle strength of the major groups in the extremities is 5/5. REFLEXES: Deep tendon reflexes asymmetric diminished in the lower extremities. No pathological reflexes. CEREBELLAR/COORDINATION: Finger to nose is normal bilaterally. GAIT/STATION: deferred laboratory and microbiology Laboratory Tests 07/23/24 04:31 Test 07/23/24 04:31 Range/Units Serum Glucose 199 H 74-106 mg/dL Problem List Syncopal event x 3, one was with loss of consciousness briefly ? Syncope ? TIA ? Partial simple/partial complex seizure Diabetic polyneuropathy Restless leg syndrome Iron deficiency Obesity Assessment/Plan Monitoring Supportive treatment Telemetry EEG Lyrica 50 mg HS for polyneuropathy/restless legs syndrome He is aware of foot care and his instead his foot every day More recommendation per clinical course This medical document was created using an electronic medical record system with [employer] dictation system. Although this document has been carefully reviewed, there may still be some phonetic and typographical errors. These areas are purely typographical due to imperfections of the software programs, and do not reflect any compromise in the patient's medical care. Prognosis poor Plan discussed with: Other CRISTINA WHITMAN MD Jul 23, 2024 14:44
--- NOTE | 2024-07-23 20:30 | DVHEEG2 ---
Neurology EEG Procedural Note Procedural Note EXAM DATE: 07/22/2024 REFERRING DOCTOR: Dr. Whitman TECHNIQUE: Eighteen channels of EEG, 2 channels of EOG, and 1 channel of EKG were recorded using the International 10/20 system. CLINICAL DATA: The patient was referred for an EEG evaluation for the evidence of seizure disorder. MEDICATIONS: See chart BACKGROUND ACTIVITY: While the patient was awake, the background activity consisted of well regulated 10 Hz rhythmic waveforms, symmetrically distributed over both posterior quadrants and was reactive to eye opening. ACTIVATION: Hyperventilation: Not done Photic Stimulation: No photic convulsive response Sleep: Stage I IMPRESSION: This is a normal EEG. No focal, lateralized, or epileptiform features are noted. If clinically indicated to rule out a seizure disorder, recommend repeat EEG with sleep deprivation. The EKG channel showed an irregular heart rate of 90/min[place] [address] CRISTINA WHITMAN MD Jul 23, 2024 20:30
--- NOTE | 2024-07-23 22:22 | DVHPN2 ---
Progress Note - Dictate Date Seen: Jul 23, 2024 Medical Necessity Reason Pt with a Central, PICC or Fol: No Subjective Patient was seen and evaluated in follow up. No overnight events. Echocardiogram shows an EF of 60%. Patient denies any cardiac symptoms. Patient is cardiac stable for discharge. Telemetry reviewed. vital signs Vital Sign Date Time Temp Pulse Resp B/P (MAP) Pulse Ox O2 Delivery O2 Flow Rate FiO2 07/23/24 12:34 89 126/73 07/23/24 09:00 97.7 17 94 97.7 07/23/24 07:37 Nasal Cannula* 2 28 Total Intake and Output 07/22/24 07/22/24 07/23/24 15:00 23:00 07:00 Intake Total 50 ml 480 ml 850 ml Balance 50 ml 480 ml 850 ml objective GENERAL: Awake, alert, oriented. Obese LUNGS: Clear. CARDIOVASCULAR: Heart sounds are good. ABDOMEN: Soft. laboratory and microbiology Laboratory Tests 07/23/24 04:31 Test 07/23/24 04:31 Range/Units Serum Glucose 199 H 74-106 mg/dL Problem List Syncope unknown etiology. Acute metabolic encephalopathy. Atrial fibrillation. Leukocytosis. Elevated lactic acid level. Hyponatremia. Lactic acidosis. Pneumonia, unspecified organism. End stage renal disease on peritoneal dialysis. Hyperglycemia due to diabetes mellitus. Assessment/Plan Continued all current supportive medical care. Echocardiogram. Morphine and [place] for pain management. Eliquis. Lipitor. Coreg. IV antibiotics as ordered. Nitro SL. Additional plan as per the hospital course. Plan discussed with: Patient ROSALIE BYRNE MD Jul 23, 2024 22:22
== END 2024-07-23 12:56 | disposition home or self-care (01) | DRG 871 ==
LOC: ER 19:37 → EEVIPCON 19:37 → OVERFLOW 07-20 04:34 → EEVIPCON 07-20 04:34 → OVERFLOW 07-20 04:37 → TELE-EAST 07-20 08:03 → TELE-CENTR 07-20 12:27
PROVIDERS: ADMIT Nurse Practitioner Acute Care; ATTEND Nurse Practitioner Acute Care
DX: A41.9 Sepsis, unspecified organism (principal); G93.41 Metabolic encephalopathy; N18.6 End stage renal disease; J96.01 Acute respiratory failure with hypoxia; J15.69 Pneumonia due to other Gram-negative bacteria; J15.9 Unspecified bacterial pneumonia; E87.1 Hypo-osmolality and hyponatremia; E87.20 Acidosis, unspecified; I13.2 Hypertensive heart and chronic kidney disease with heart failure and with stage 5 chronic kidney disease, or end stage renal disease; I48.91 Unspecified atrial fibrillation; G25.81 Restless legs syndrome; E11.42 Type 2 diabetes mellitus with diabetic polyneuropathy; E11.22 Type 2 diabetes mellitus with diabetic chronic kidney disease; E11.65 Type 2 diabetes mellitus with hyperglycemia; I50.9 Heart failure, unspecified; D50.9 Iron deficiency anemia, unspecified; E66.9 Obesity, unspecified; F17.200 Nicotine dependence, unspecified, uncomplicated; Z99.2 Dependence on renal dialysis; Z79.899 Other long term (current) drug therapy; Z68.34 Body mass index [BMI] 34.0-34.9, adult
CPT/HCPCS: 36415; 70450; 70551; 71045; 71250; 78582; 80048; 80053; 82607; 82728; 82746; 82962; 83540; 83550; 83605; 83690; 83880; 84100; 84439; 84443; 84484; 85025; 87426; 87804; 89051; 93005; 93306; 94640; 95819; 96361; 96365; 97110; 97116; 97163; 97530; G0378; J1815; J3490; P9047

== ENCOUNTER → 2024-09-13 | Outpatient (CLI) | payer MEDICARE ==
[~2024-09-13] MED LIST: ALB5IS NEB; AML5T PO; APIX5TAB PO; ATOR20TA50 PO; CARV-216 OR; CINA30TA14 PO; DEXT1SYP9 PO; DOXY100C79 PO; GABA300T4 PO; OME20T PO; REPA1TAB5 OR; SEVE400T PO; SPIR25TA8 PO; TAMS1CAP25 PO
== END | disposition home or self-care (01) ==
LOC: LAB 06:35
PROVIDERS: ATTEND Internal Medicine
DX: Z13.1 Encounter for screening for diabetes mellitus (principal)
CPT/HCPCS: 82274

== ENCOUNTER 2024-12-16 16:02 | Inpatient (IN) | payer MEDICARE, OTHER ==
[~2024-12-16] VITALS: Ht 177.8 cm; Wt 105.0 kg
[~2024-12-16 16:02] MED LIST changes: +ATOR40TA52 PO; +BUPR5DIS TD; +CARV3.1240 PO; +GABA-1250 PO; +HYDRX10T PO; +INSUINJ2 SC; +LINA145C PO; +LUBI24CA12 PO; +MEGE40TA4 PO; +MET25T PO; +OMEP-448 PO; +POTA-228 PO; -REPA1TAB5 OR; +REPA1TAB5 PO; +SENN-195 PO
--- NOTE | 2024-12-16 16:27 | ED.PDOC ---
SOB-HPI HPI Comments This is a 69 year old male presenting to the ED with chief complaint of SOB. Patient reports that he has been experiencing SOB with associated cough and fever for the past 2 days. Patient relays that he needed to be defibrillated a week ago at [place] due to having problems with his A-Fib. Patient states he is on O2 normally at home, but was noted to be at 91% on 6L of O2. Patient denies any chest pain, dizziness, headache, chills, N/V, or hemoptysis. Chief Complaint: Shortness of Breath Time Seen by MD: 16:24 Reviewed notes: Nurses Notes, Medications, Allergies Information Source: Patient Mode of Arrival: Wheelchair Severity: Moderate Timing: Days Duration: Since onset Context: At Rest PE Risk Factors: None Prehospital treatment: Oxygen Modifying Factors: Nothing Associated Signs and Symptoms: Fever, Cough If cough with SOB: Non-Productive Past Medical History PAST MEDICAL HISTORY: CHF, DM, ESRD, HTN Surgical History: Denies all surgeries Family History Family History: Reviewed,noncontributory to illness Social History Smoker: Non-Smoker Alcohol: Denies ETOH Use Drugs: Denies Drug Use Lives In: Home Constitutional: reports: fever; denies: chills, diaphoresis, fatigue, malaise, sweats, weakness, others EENTM: denies: blurred vision, double vision, ear bleeding, ear discharge, ear drainage, ear pain, ear ringing, eye pain, eye redness, hearing loss, mouth pain, mouth swelling, nasal discharge, nose bleeding, nose congestion, nose pain, photophobia, tearing, throat pain, throat swelling, voice changes, others Respiratory: reports: cough, shortness of breath; denies: hemoptysis, orthopnea, SOB at rest, SOB with excertion, stridor, wheezing, others Cardiovascular: denies: chest pain, dizzy spells, diaphoresis, Dyspnea on exertion, edema, irregular heart beat, left arm pain, lightheadedness, palpitations, PND, syncope, others Gastrointestinal: denies: abdomen distended, abdominal pain, blood streaked bowels, constipated, diarrhea, dysphagia, difficulty swallowing, hematemesis, melena, nausea, poor appetite, poor fluid intake, rectal bleeding, rectal pain, vomiting, others Genitourinary: denies: burning, dysuria, flank pain, frequency, hematuria, incontinence, penile discharge, penile sore, pain, testicle pain, testicle swelling, urgency, others Neurological: denies: dizziness, fainting, headache, left sided numbness, left sided weakness, numbness, paresthesia, pre-existing deficit, right sided numbness, right sided weakness, seizure, speech problems, tingling, tremors, weakness, others Musculoskeletal: denies: back pain, gout, joint pain, joint swelling, muscle pain, muscle stiffness, neck pain, others Integumetry: denies: bruises, change in color, change in hair/nails, dryness, laceration, lesions, lumps, rash, wounds, others Allergic/Immunocompromised: denies: Difficulty Healing, Frequent Infections, Hives, Itching, others Hematologic/Lymphatic: denies: anemia, blood clots, easy bleeding, easy bruising, swollen glands, others Endocrine: denies: excessive hunger, excessive sweating, excessive thirst, excessive urination, flushing, intolerance to cold, intolerance to heat, unexplained weight gain, unexplained weight loss, others Psychiatric: denies: anxiety, bipolar disorder, depression, hopeless, panic disorder, schizophrenia, sleepless, suicidal, others All Other Systems: Reviewed and Negative Physical Exam General Appearance: Moderate Distress, Normal HEENT: Normal ENT Inspection, Pharynx Normal, TMs Normal Neck: Full Range of Motion, Non-Tender, Normal, Normal Inspection Respiratory: Chest Non-Tender, No Accessory Muscle Use, Other (Coarse breath sounds) Cardiovascular: Irregular, No Edema, No JVD, No Murmur, No Gallop, Normal Peripheral Pulses Breast Exam: Deferred Gastrointestinal: No Organomegaly, Non Tender, No Pulsatile Mass, Normal Bowel Sounds, Soft Genitalia: Deferred Pelvic: Deferred Rectal: Deferred Extremities: No calf tenderness, Normal capillary refill, Normal inspection, N ormal range of motion, Non-tender, No pedal edema Musculoskeletal : Apperance: Normal Neurologic: Alert, hotel custodian II-XII nml as Tested, No Motor Deficits, Normal Affect, Normal Mood, No Sensory Deficits Cerebellar Function: NOT DONE Reflexes: NOT DONE Skin: Dry, Normal Color, Warm Peripheral Pulses: 3+ Radial (R), 3+ Radial (L) Lymphatic: No Adenopathy EKG EKG : Pulse Rate (adult): 91 Cardiac Rhythm: Afib Was a procedure done? Was a procedure done?: No Differential Dx Differential Diagnosis: Anxiety, Asthma, Bronchitis, CHF, COPD X-Ray, Labs, Meds, VS Vital Signs Date Time Temp Pulse Resp B/P (MAP) Pulse Ox O2 Delivery O2 Flow Rate FiO2 12/16/24 16:27 91 12/16/24 16:06 91 12/16/24 16:03 98.1 91 114/61 91 98.1 Patient alert. Vitals stable. Complaining of shortness a breath. Placed on oxygen. EKG does show atrial fibrillation. Was placed on amiodarone. Was given Lasix. Explained to the patient. Continue monitoring. [place] [id number] Ph: [phone] DIAGNOSTIC IMAGING Diagnostic Imaging Report : [id number] Signed PATIENT: FERNANDO RANDLE ACCT: [id number] UNIT: [id number] : 1955 LOC: ER ROOM / BED: / AGE / SEX: 69 / M ADM STATUS: REG ER SERVICE 1623 ORDERING PHYSICIAN: CARLOS BOBBY MD PROCEDURE(s): CXRP - CHEST PORTABLE REASON: sob ORDER NUMBER(s): [id number], ACCESSION NUMBER(s): [id number] CHEST RADIOGRAPH Indication: sob Technique: XY CHEST PORTABLE COMPARISON: None FINDINGS: The cardiac silhouette is enlarged. The lungs demonstrate bilateral patchy airspace opacities, [id number]. The pulmonary vasculature is prominent. Small bilateral pleural effusions. There is no pneumothorax. IMPRESSION: Cardiomegaly with pulmonary vascular congestion and bilateral patchy airspace opacities. Small bilateral pleural effusions. ATED BY: KONSTANTIN CIFUENTES MD DICTATED DATE/TIME: 12/16/241706 SIGNED BY: KONSTANTIN CIFUENTES MD SIGNED DATE/TIME: 12/16/241706 CC: Images Reviewed?: Images reviewed and evaluated by me Time of 1ST Reevaluation: 17:23 Reevaluation 1ST: Unchanged Patient Education/Counseling: Diagnosis, Treatment Family Education/Counseling: No Family Present SEPSIS Sepsis Screen Date sepsis recognized/suspect: Dec 16, 2024 Time Sepsis recognized/suspect: 1608 Recent Procedure: No On Antibiotic Therapy: No Respiratory Rate >20: No Heart Rate >90: No Temp<36 C (96.8 F) or >38.3 C: No SBP <90 or MAP <65 mmHG: No New Acute Mental Status Change: No Is the patient on CPAP, BIPAP,: No Physician Orders Electrocardigram (12/16/24 16:14) Amiodarone 360mg/200ml Premix (Nexterone (12/16/24 16:45) Troponin-I Hs (12/16/24 16:23) Complete Blood Count (12/16/24 16:23) Chest Portable (12/16/24 16:23) Urinalysis (12/16/24 16:23) Basic Metabolic Panel (12/16/24 16:23) Troponin-I Hs (12/16/24 17:23) Troponin-I Hs (12/16/24 19:23) Piperacillin-Tazob 3.375gm (Zosyn 3.375g (12/16/24 16:45) Vital Signs Date Time Temp Pulse Resp B/P (MAP) Pulse Ox O2 Delivery O2 Flow Rate FiO2 12/16/24 16:27 91 12/16/24 16:06 91 12/16/24 16:03 98.1 91 114/61 91 98.1 Departure 1 Departure Time of Disposition: 16:37 Impression: Primary Impression: Acute respiratory distress Additional Impressions: Pneumonitis Atrial fibrillation Qualified Codes: I48.0 - Paroxysmal atrial fibrillation Disposition: ADMITTED INPATIENT Admit to: Med Surg Condition: Guarded Critical Care Note Critical Care Time?: Yes (90 min-critical care time only) Stability Stability form required: No Heart Score Heart Score: Heart Score Response (Comments) Value History Highly Suspicious 2 EKG Repolarization Disturb 1 Age >65 2 Risk Factors >3 or Hx ASHD 2 Troponin Normal limit 0 Total 7 I personally scribed for CARLOS BOBBY MD ([email or web address]) on 12/16/24 at 16:27. Electronically submitted by Hal Torres ([email or web address]). I personally scribed for CARLOS BOBBY MD ([email or web address]) on 12/16/24 at 17:20. Electronically submitted by Hal Torres ([email or web address]). CARLOS BOBBY MD Dec 16, 2024 16:27
[2024-12-16] MEDS: PIPERACILLIN-TAZOB 3.375GM 100 ML IV ONE (16:45)
--- NOTE | 2024-12-16 17:07 | DVH ---
CHEST RADIOGRAPH Indication: sob Technique: XY CHEST PORTABLE COMPARISON: None FINDINGS: The cardiac silhouette is enlarged. The lungs demonstrate bilateral patchy airspace opacities, [id number]. The pulmonary vasculature is prominent. Small bilateral pleural effusions. There i s no pneumothorax. IMPRESSION: Cardiomegaly with pulmonary vascular congestion and bilateral patchy airspace opacities. Small bilateral pleural effusions.
[2024-12-16 18:05] LABS: Potassium 4.2 mmol/L (3.5-5.1)
[2024-12-16 18:06] LABS: Anion Gap 13 (5-15); Carbon Dioxide 26 mmol/L (20-31)
[2024-12-16] MEDS: AMIODARONE BOLUS KIT 100 ML IV ONE (18:07)
[2024-12-16 18:08] LABS: Calcium 8.2 mg/dL (8.7-10.4); Chloride 94 mmol/L (98-107); Hematocrit 37.0 % (41.0-53.0); Hemoglobin 12.7 g/dL (13.5-17.5); Mean Corpuscular Hemoglobin 29.8 pg (28.0-32.0); Mean Corpuscular Volume 87.2 fL (80.0-100.0); Nucleated Red Blood Cells % 0.1 %; Sodium 133 mmol/L (136-145)
[2024-12-16 18:11] LABS: BUN/Creatinine Ratio 9.9 (10.0-20.0)
[2024-12-16 18:12] LABS: Blood Urea Nitrogen 66 mg/dL (9-23); Glucose 122 mg/dL (74-106)
[2024-12-16] MEDS: methylPREDNISolone SOD SUCC 125 MG/2 ML VL IV ONE (18:14)
[2024-12-16] MEDS: FUROSEMIDE 20 MG/2 ML VIAL IV ONE (18:30)
[2024-12-16] MEDS: AMIODARONE 360mg/200mL PREMIX 200 ML IV ONE (18:32)
--- NOTE | 2024-12-16 18:35 | ECG ---
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
[2024-12-16 18:44] VITALS: PULSE 92; RESP 18; O2SAT 93
[2024-12-16 19:30] VITALS: PULSE 78; RESP 18; O2SAT 98
[2024-12-16 20:17] LABS: Urine Protein, UAD TRACE (Negative)
[2024-12-16] MEDS ORDERED: ALBUTEROL SULF 2.5 MG/0.5ML(0.5%) NEB SOLN NEB PRN (22:30)
[2024-12-16] MEDS ORDERED: HYDROcodone-ACET 5/325MG TAB PO PRN (22:30)
[2024-12-16] MEDS ORDERED: ONDANSETRON HCL 4 MG/2 ML VIAL IV PRN (22:30)
[2024-12-16] MEDS ORDERED: IPRATROPIUM BROM 0.5 MG/2.5ML INH SOL NEB PRN (22:30)
[2024-12-16] MEDS ORDERED: DEXTROSE (50%) 50ML SYRG IV PRN (22:30)
--- NOTE | 2024-12-16 22:59 | DVHHP2 ---
History of Present Illness Reason for Visit: Acute respiratory distress History of Present Illness The patient is a 69-year-old male with past medical history of AFib, DM, CHF, ESRD on peritoneal dialysis, and hypertension who presented to [facility] ED with complaint of shortness of breaths. Patient reports that he has been experiencing shortness of breaths associated with cough and fever for the past 2 days. Patient states that he was defibrillated a week ago at [place] due to having problems with his A-Fib. Patient states he is on O2 normally at home, but was noted to be at 91% on 6L of oxygen. Patient was seen and evaluated in the ED, laboratory data shows WBC 11.1, platelets 238, sodium 133, potassium 4.2, BUN 66, creatinine 6.67, glucose 122, calcium 8.2, troponin 122, BNP 182.53, blood pressure 110/73, heart rate 92, temperature 98.4 F, O2 saturation 93% on oxygen. Chest x-ray revealing cardiomegaly with pulmonary vascular congestion and bilateral patchy airspace disease; small bilateral pleural effusions. Please see medication orders section in the computer. On my assessment, patient denied chest pain, no headache, no dizziness, no diaphoresis, currently on oxygen, no nausea, no vomiting, no fever, no chills. Patient was admitted for further evaluation and medical management. Past Medical History AFib, CHF, DM, ESRD, HTN Past Surgical History Peritoneal dialysis access Family History Reviewed, noncontributory to the management of this case. Past Social History The patient lives at home, denies smoking, alcohol or illicit drugs abuse. Review of Systems Constitutional: Yes: Fever, Weakness; No: Chills, Sweats, Malaise, Other Eyes: No: Pain, Vision change, Conjunctivae inflammation, Eyelid inflammation, Other, Redness ENT: No: Ear pain, Ear discharge, Nose pain, Nose discharge, Nose congestion, Mouth pain, Mouth swelling, Throat pain, Throat swelling, Other Respiratory: Cough, Shortness of breath; No: Dry, SOB with excertion, Wheezing, Hemoptysis, Pleuritic Pain, Sputum, Wheezing, Other Cardiovascular: No: Chest Pain, Palpitations, Orthopnea, Paroxysmal Noc. Dyspnea, Edema, Lt Headedness, Other Gastrointestinal: No: Nausea, Vomiting, Abdominal Pain, Diarrhea, Constipation, Melena, Hematochezia, Other Genitourinary: No Dysuria, No Frequency, No Incontinence, No Hematuria, No Retention; Other (On peritoneal dialysis) Musculoskeletal: No: other, neck pain, shoulder pain, arm pain, back pain, hand pain, leg pain, foot pain Skin: No: Rash, Lesions, Jaundice, Bruising, Other Neurological: No: Weakness, Numbness, Incoordination, Change in speech, Confu be, Seizures, Other Allergies: Coded Allergies: NO KNOWN ALLERGIES (Unverified , 07/20/24) Medications Current Medications Medications Dose Ordered Sig/Fransisco Route Start Time Stop Time Status Last Admin Dose Admin Aspirin 81 mg DAILY PO 12/17/24 10:00 Atorvastatin Calcium 20 mg HS PO 12/17/24 22:00 Albuterol 2.5 mg Q4HPRN PRN NEB 12/16/24 22:30 Ipratropium [place] 0.5 mg Q4HPRN PRN NEB 12/16/24 22:30 Methylprednisolone Sodium Succinate 40 mg Q8HR IV 12/17/24 06:00 Sevelamer HCl 800 mg TIDWM PO 12/17/24 08:00 Multivit/Ca Carb/ B Cmplx/FA/Prenat 1 tab DAILY PO 12/17/24 10:00 Calcium Acetate 667 mg TIDWMEALS PO 12/17/24 08:00 Azithromycin 250 ml @ 125 mls/hr DAILY IV 12/17/24 10:00 Diagnostic Test (Pha) 1 strip ACHS 12/17/24 07:00 Insulin Human Regular ACHS SC 12/17/24 07:00 Dextrose 50 ml UD PRN IV 12/16/24 22:30 Sodium Chloride 10 ml Q8HR IV 12/17/24 06:00 Acetaminophen/ Hydrocodone Bitart 1 tab Q4HP PRN PO 12/16/24 22:30 Ondansetron HCl 4 mg Q4HP PRN IV 12/16/24 22:30 Docusate Sodium 100 mg BIDPRN PRN PO 12/16/24 22:30 Acetaminophen 650 mg Q6HP PRN PO 12/16/24 22:30 Carvedilol 3.125 mg Q12HR PO 12/17/24 10:00 Famotidine 10 mg Q12HR IV 12/17/24 10:00 Exam Vital Signs Vital Signs Date Time Temp Pulse Resp B/P (MAP) Pulse Ox O2 Delivery O2 Flow Rate FiO2 12/16/24 21:00 77 18 117/74 (88) 98 12/16/24 19:30 Nasal Cannula* 4 36 12/16/24 19:00 98.0 98.0 General Appearance: Alert, Oriented X3, Cooperative, No acute distress HEENT: Atraumatic, PERRLA, EOMI, Mucous membr. moist/pink Respiratory: Clear to auscultation, Normal air movement Cardiovascular: Regular rate, Normal S1, Normal S2, No murmurs Abdominal: Normal bowel sounds, Soft, No tenderness, No hepatospenomegaly, No masses Extremities: No clubbing, No cyanosis, No edema, Normal pulses, No tenderness/swelling Skin: No rashes, No breakdown, No significant lesion Neuro: Normal speech, Normal tone Psych/Mental Status: Mental status NL, Mood NL Labs/Xrays Labs Test 12/16/24 20:47 12/16/24 19:30 12/16/24 17:47 Range/Units Troponin I High Sensitivity 114 *H </=54 ng/L Urine Color Yellow Yellow Urine Clarity Clear Clear Urine pH 5.0 5.0-9.0 Urine Specific [place] 1.032 1.001-1.035 Urine Protein Trace H Negative Urine Ketones Negative Negative Urine Blood Negative Negative /uL Urine Nitrite Negative Negative Urine Bilirubin Negative Negative Urine Urobilinogen Normal Negative mg/dL Urine Leukocyte Esterase 1+ Negative /uL Urine RBC 3 0 - 3 /hpf Urine Microscopic WBC 4 H 0-3 /HPF Urine Squamous Epithelial Cells Few <5 /hpf Urine Bacteria Few H None Seen /hpf Urine Glucose 2+ H Normal mg/dL White Blood Count 11.1 H 4.4-10.8 10^3/uL Red Blood Count 4.24 L 4.5-5.90 10^6/uL Hemoglobin 12.7 L 13.5-17.5 g/dL Hematocrit 37.0 L 41.0-53.0 % Mean Corpuscular Volume 87.2 80.0-100.0 fL Mean Corpuscular Hemoglobin 29.8 28.0-32.0 pg Mean Corpuscular Hemoglobin Concent 34.2 32.0-36.0 g/dL Red Cell Distribution Width 16.4 H 11.8-14.3 % Platelet Count 238 140-450 10^3/uL Mean Platelet Volume 7.6 6.9-10.8 fL Neutrophils (%) (Auto) 89.1 H 37.0-80.0 % Lymphocytes (%) (Auto) 5.0 L 10.0-50.0 % Monocytes (%) (Auto) 5.5 0.0-12.0 % Eosinophils (%) (Auto) 0.1 0.0-7.0 % Basophils (%) (Auto) 0.3 0.0-2.0 % Neutrophils # (Auto) 9.8 H 1.6-8.6 10 ^3/uL Lymphocytes # (Auto) 0.6 0.4-5.4 10 ^3/uL Monocytes # (Auto) 0.6 0-1.3 10 ^3/uL Eosinophils # (Auto) 0 0-0.8 10 ^3/uL Basophils # (Auto) 0 0-0.2 10 ^3/uL Nucleated Red Blood Cells 0.1 % Sodium Level 133 L 136-145 mmol/L Potassium Level 4.2 3.5-5.1 mmol/L Chloride Level 94 L 98-107 mmol/L Carbon Dioxide Level 26 20-31 mmol/L Anion Gap 13 5-15 Blood Urea Nitrogen 66 H 9-23 mg/dL Creatinine 6.67 H 0.700-1.30 mg/dL Glomerular Filtration Rate Calc 8 >90 mL/min BUN/Creatinine Ratio 9.9 L 10.0-20.0 Serum Glucose 122 H 74-106 mg/dL Calcium Level 8.2 L 8.7-10.4 mg/dL PATIENT: FERNANDO RANDLE ACCT: [id number] UNIT: [id number] : 1955 LOC: ER ROOM / BED: / AGE / SEX: 69 / M ADM STATUS: REG ER SERVICE 1623 ORDERING PHYSICIAN: CARLOS BOBBY MD PROCEDURE(s): CXRP - CHEST PORTABLE REASON: sob ORDER NUMBER(s): [id number], ACCESSION NUMBER(s): [id number] CHEST RADIOGRAPH Indication: sob Technique: XY CHEST PORTABLE COMPARISON: None FINDINGS: The cardiac silhouette is enlarged. The lungs demonstrate bilateral patchy airspace opacities, [id number]. The pulmonary vasculature is prominent. Small bilateral pleural effusions. There is no pneumothorax. IMPRESSION: Cardiomegaly with pulmonary vascular congestion and bilateral patchy airspace opacities. Small bilateral pleural effusions. SEPSIS Sepsis Screen Date sepsis recognized/suspect: Dec 16, 2024 Time Sepsis recognized/suspect: 1929 Recent Procedure: No On Antibiotic Therapy: No Respiratory Rate >20: No Heart Rate >90: No Temp<36 C (96.8 F) or >38.3 C: No SBP <90 or MAP <65 mmHG: No New Acute Mental Status Change: No Is the patient on CPAP, BIPAP,: No Physician Orders Chest Portable (12/16/24 16:23) Communication Order (12/16/24 18:00) Aspirin Tablet (12/17/24 10:00) Atorvastatin (Lipitor) (12/17/24 22:00) B-Type Natriuretic Peptide (12/16/24 22:17) *Dr. Crystal Gomez -Da Deepa (12/16/24 22:17) Albuterol Medneb (Ventolin Medneb) (12/16/24 22:30) Ipratropium Medneb (Atrovent Medneb) (12/16/24 22:30) Methylprednisolone Sod Succ (Solu Medrol (12/17/24 06:00) Sevelamer (Renagel) (12/17/24 08:00) B-Complex W/ C & Folic Tablet (Nephro-Vi (12/17/24 10:00) Calcium Acetate Capsule (Phoslo Capsule) (12/17/24 08:00) Azithromycin 500mg/ 250ml (Zithromax 50 (12/17/24 10:00) Glucose Blood (Accu-Chek Comfort Curve T (12/17/24 07:00) Insulin R (Human) (Insulin R) (12/17/24 07:00) Dextrose 50% Syringe (12/16/24 22:30) Allergies (12/16/24 22:17) Code Status (12/16/24 22:17) Renal Standard(2gna,3gk,Lopho) (12/17/24 Breakfast) Sodium Chloride Lock (Saline Lock Ns) (12/17/24 06:00) Oxygen Per Hour (12/16/24 22:17) Hydrocodone-Acet 5/325mg Tab ([place] 5/32 (12/16/24 22:30) Ondansetron Hcl (Zofran) (12/16/24 22:30) Docusate Sodium Capsule (Colace Capsule) (12/16/24 22:30) Complete Blood Count (12/17/24 04:00) Comprehensive Metabolic Panel (12/17/24 04:00) Condition: Serious (12/16/24 22:17) Acetaminophen Tablet (Tylenol Tablet) (12/16/24 22:30) Bedrest With Bathroom Privileg (12/16/24 22:17) Sequential Compression Device (12/16/24 ) Carvedilol Tablet (Coreg Tablet) (12/17/24 10:00) Famotidine Injection (Pepcid Injection) (12/17/24 10:00) Vital Signs Date Time Temp Pulse Resp B/P (MAP) Pulse Ox O2 Delivery O2 Flow Rate FiO2 12/16/24 21:00 77 18 117/74 (88) 98 12/16/24 19:30 78 18 98 Nasal Cannula* 4 36 12/16/24 19:00 98.0 97 20 93/63 (73) 97 98.0 12/16/24 18:44 92 18 93 Nasal Cannula* 6 44 12/16/24 18:34 97 12/16/24 18:30 110/73 12/16/24 18:01 98.4 92 18 110/73 (85) 93 98.4 12/16/24 16:27 91 12/16/24 16:06 91 12/16/24 16:03 98.1 91 114/61 91 98.1 Laboratory Tests Test 12/16/24 17:47 White Blood Count 11.1 10^3/uL (4.4-10.8) H Medications Medications Dose Ordered Sig/Fransisco Route Start Time Stop Time Status Last Admin Dose Admin Amiodarone HCL/ Dextrose 200 ml @ 33.33 mls/ hr ONCE ONCE IV 12/16/24 16:45 12/16/24 22:45 DC 12/16/24 18:32 33.33 MLS/HR Aspirin 325 mg ONCE ONCE PO 12/16/24 16:30 12/16/24 16:31 DC 12/16/24 18:14 325 MG Furosemide 20 mg ONCE ONCE IV 12/16/24 16:45 12/16/24 16:46 DC 12/16/24 18:30 20 MG Methylprednisolone Sodium Succinate 125 mg ONCE ONCE IV 12/16/24 16:45 12/16/24 16:46 DC 12/16/24 18:14 125 MG Assessment/Plan Assessment/Plan Acute respiratory distress Pneumonitis Atrial fibrillation Paroxysmal atrial fibrillation End-stage renal disease on peritoneal dialysis Plan 1. Admit to telemetry unit 2. Breathing treatment 3. Pain control management 4. IV antibiotic management 5. Management of fluids and electrolytes 6. Consultation for Cardiology 7. Diagnostic test chest x-ray 8. DVT prophylaxis-on aspirin 9. Repeat labs CBC, CMP in a.m. 10. Home medication reviewed and reconciled 11. Continue with current medical management 12. Treatment plan discussed with patient and RN. Patient verbalized understan jasvir. Plan discussed with: Patient, Other (RN) My Orders Orders - NAVID ABEBE DNP Procedure Category Date Status Time Aspirin Tablet PHA 12/17/24 In Process 10:00 Atorvastatin (Lipitor) PHA 12/17/24 In Process 22:00 B-Type Natriuretic LAB 12/16/24 Logged Peptide 22:17 *Dr. Crystal Gomez -Da CONS 12/16/24 Transmitted Deepa 22:17 Albuterol Medneb PHA 12/16/24 In Process (Ventolin Medneb) 22:30 Ipratropium Medneb PHA 12/16/24 In Process (Atrovent Medneb) 22:30 Methylprednisolone PHA 12/17/24 In Process Sod Succ (Solu Medrol 06:00 Sevelamer (Renagel) PHA 12/17/24 In Process 08:00 B-Complex W/ C & PHA 12/17/24 In Process Folic Tablet 10:00 Calcium Acetate PHA 12/17/24 In Process Capsule (Phoslo 08:00 Azithromycin 500mg/ PHA 12/17/24 In Process 250ml (Zithromax 50 10:00 Glucose Blood PHA 12/17/24 In Process (Accu-Chek Comfort 07:00 Insulin R (Human) PHA 12/17/24 In Process (Insulin R) 07:00 Dextrose 50% Syringe PHA 12/16/24 In Process 22:30 Allergies MAGUI 12/16/24 In Process 22:17 Code Status CODE 12/16/24 Transmitted 22:17 Renal DIET 12/17/24 Transmitted Standard(2gna,3gk,Lopho) Breakfast Sodium Chloride Lock PHA 12/17/24 In Process (Saline Lock Ns) 06:00 Oxygen Per Hour RT 12/16/24 Transmitted 22:17 Hydrocodone-Acet PHA 12/16/24 In Process 5/325mg Tab ([place] 22:30 Ondansetron Hcl PHA 12/16/24 In Process (Zofran) 22:30 Docusate Sodium PHA 12/16/24 In Process Capsule (Colace 22:30 Complete Blood Count LAB 12/17/24 Verified 04:00 Comprehensive LAB 12/17/24 Verified Metabolic Panel 04:00 Condition: Serious MAGUI 12/16/24 In Process 22:17 Acetaminophen Tablet PHA 12/16/24 In Process (Tylenol Tablet) 22:30 Bedrest With Bathroom MAGUI 12/16/24 In Process Privileg 22:17 Sequential MAGUI 12/16/24 In Process Compression Device Carvedilol Tablet PHA 12/17/24 In Process (Coreg Tablet) 10:00 Famotidine Injection PHA 12/17/24 In Process (Pepcid Injection) 10:00 Problem List: (1) Acute respiratory distress (2) Atrial fibrillation (3) Pneumonitis (4) Paroxysmal atrial fibrillation (5) End-stage renal disease on peritoneal dialysis Date of Service: Dec 16, 2024 Billing Provider: NAVID ABEBE DNP Common Visit Codes: [id number] INP/OBS CARE (HIGH) NAVID ABEBE DNP Dec 16, 2024 22:59
[2024-12-16] MEDS ORDERED: MORPHINE SULFATE INJ 2 MG/ml SYRG IV PRN (23:00)
[2024-12-16] MEDS ORDERED: NITROGLYCERIN 0.4 MG SL TAB SL PRN (23:00)
[2024-12-16 23:55] VITALS: BP 117/74; PULSE 78; RESP 18; TEMP 98; O2SAT 98
[2024-12-17] VITALS (12 sets, daily range): BP systolic 111–144; BP diastolic 70–97; PULSE 66–95; RESP 16–19; TEMP 97.1–97.7; O2SAT 91–98
[2024-12-17] MEDS ORDERED: METO25TA5 PO (03:38)
[2024-12-17] MEDS ORDERED: INSU1INJ19 SC (03:38)
[2024-12-17] MEDS ORDERED: METO5TAB5 PO (03:38)
[2024-12-17] MEDS ORDERED: POTA-215 PO (03:38)
[2024-12-17 05:31] LABS: Hematocrit 36.9 % (41.0-53.0); Hemoglobin 12.6 g/dL (13.5-17.5); Mean Corpuscular Hemoglobin 30.2 pg (28.0-32.0); Mean Corpuscular Volume 88.7 fL (80.0-100.0); Nucleated Red Blood Cells % 0.1 %
[2024-12-17 05:52] LABS: Albumin 3.8 g/dL (3.2-4.8); Alkaline Phosphatase 85 U/L (46-116); Anion Gap 16 (5-15); BUN/Creatinine Ratio 10.0 (10.0-20.0); Carbon Dioxide 23 mmol/L (20-31); Potassium 3.9 mmol/L (3.5-5.1); Total Protein 7.0 g/dL (5.7-8.2)
[2024-12-17 05:53] LABS: Bilirubin, Total 0.5 mg/dL (0.2-1.0)
[2024-12-17 05:59] LABS: Alanine Aminotransferase 45 U/L (7-40); Blood Urea Nitrogen 69 mg/dL (9-23); Calcium 8.1 mg/dL (8.7-10.4); Chloride 91 mmol/L (98-107); Glucose 393 mg/dL (74-106); Sodium 130 mmol/L (136-145)
[2024-12-17] MEDS: methylPREDNISolone SOD SUCC 40 MG/ML VL IV SCH (06:30)
[2024-12-17] MEDS: SODIUM CHLOR 0.9% PF (SALINE LOCK) 10ML VIAL/SYR IV SCH (06:30)
[2024-12-17] MEDS: ACCU-CHEK COMFORT CURVE STRIP VI SCH ×2 (06:31→16:41)
[2024-12-17] MEDS: InsuLIN REG 1unit/0.01ml Soln (100units/ml) SC SCH ×3 (06:50→22:58)
[2024-12-17] MEDS: SEVELAMER 800 MG TAB PO SCH (08:19)
[2024-12-17] MEDS: CALCIUM ACETATE 667 MG CAP PO SCH (08:19)
[2024-12-17] MEDS ORDERED: FAMOTIDINE (10MG/ML) 2ML VL IV SCH (10:00)
[2024-12-17] MEDS: AZITHROMYCIN 500MG/ 250ML 250 ML IV SCH (11:17)
[2024-12-17] MEDS: FAMOTIDINE (10MG/ML) 2ML VL IV SCH (11:17)
[2024-12-17] MEDS: BUMETANIDE 2.5mg/10ml (0.25 mg/ml) INJ IV ONE (11:17)
[2024-12-17] MEDS: B-COMPLEX W/ C & FOLIC ACID(NEPHROVITE TAB) PO SCH (11:18)
[2024-12-17] MEDS: CARVEDILOL 3.125 MG TAB PO SCH (11:19)
--- NOTE | 2024-12-17 11:37 | DVHCONRES ---
Date Seen: Dec 17, 2024 Resident Creating Document: CHITO BATRES RESIDENT Reason for Consultation End-stage renal disease History of Present Illness History of present illness 69-year-old male patient with past medical history of diabetes mellitus for last 20 years, CHF, atrial fibrillation status post failed cardioversion and planned to have ablation, end-stage renal disease on peritoneal dialysis that was started last year in February, CKD for nine years, hypertension, atrial fibrillation, sleep apnea presented with complaints of shortness of breath associated with cough. Patient mentioned that he had COVID seven days ago and was tested negative but still had symptoms of cough on Monday. Patient went to urgent care where he was found to have low oxygen and was referred to the ER. He also mentioned that he had associated fever on Monday that is resolved today. Patient was initially on oxygen in the hospital but now is on room air, mentioning mild cough with sputum. Patient mentioned that he sees Dr. Keane for outpatient nephrology and is on dialysis every day 9 hours. Patient mentioned that he still makes urine around 50-100 mL every day. Denied any complaints of burning micturition, urgency, frequency. Denied any flank pain, fever, chills, abdominal pain Nephrology was consulted for management for end-stage renal disease. Patient is currently on peritoneal dialysis in the hospital Past medical history diabetes mellitus for last 20 years CHF atrial fibrillation status post failed cardioversion and planned to have ablation end-stage renal disease on peritoneal dialysis that was started last year in February CKD for nine years, hypertension sleep apnea Past surgical history No recent surgery Family History Family History: Reviewed,noncontributory to illness Social History Smoker: Non-Smoker Alcohol: Denies ETOH Use Drugs: Denies Drug Use Lives In: Home Medication history Albuterol Amlodipine Eliquis Atorvastatin Buprenorphine Metolazone Cinacalcet Metoprolol Repaglinide sevelamer Spironolactone Insulin Gabapentin Past Medical History As described in the HPI Past Surgical History As described in the HPI Family History: Patient reports no known family medical history. Allergies: Coded Allergies: NO KNOWN ALLERGIES (Unverified , 07/20/24) Home Meds Active Scripts Dextromethorphan-Guaifenesin (Robitussin-Dm) 10 Ml Sr, 10 ML PO Q4HP PRN for 7 Days, #240 SYP Prov:MURTAZA JANE [employer] 07/23/24 Doxycycline (Monohydrate) (Doxycycline) 100 Mg Cap, 100 MG PO BID for 5 Days, #10 CAP Prov:AHMET JANEOLPH [employer] 07/23/24 Reported Medications Buprenorphine (BUTRANS) 5 Mcg/Hr Dis, 5 MCG TD QWEEKLY, DIS 12/17/24 Insulin Glargine (Basaglar Kwikpen) 100 Unit/Ml Inj, 30 UNIT SC, INJ 12/17/24 Potassium Chloride (Klor-Con M10) 10 Meq Tab, 10 MEQ PO DAILY, TAB 12/17/24 Metoprolol Tartrate (Metoprolol Tartrate) 25 Mg Tab, 25 MG PO DAILY, TAB 12/17/24 Metolazone (Metolazone) 5 Mg Tab, 5 MG PO EOD, TAB 12/17/24 Linaclotide Base (LINZESS) 145 Mcg Cap, 145 MCG OR PRN, CAP 12/17/24 Sennosides-Docusate Sodium ([place]-S) 1 Tab Tab, 1 TAB PO BID, TAB 12/16/24 Hydroxyzine Hcl (Hydroxyzine Hcl) 10 Mg Tab, 20 MG PO HS for 30 Days, MG 12/16/24 Sevelamer HCl (Sevelamer Hydrochloride) 400 Mg Tab, 400 MG PO, TAB 07/20/24 Tamsulosin HCl (Tamsulosin Hydrochloride) 0.4 Mg Cap, 0.4 MG PO, CAP 07/20/24 Amlodipine Besylate (NORVASC TABLET) 5 Mg Tb, 1 TAB PO DAILY, #30 TAB 5 Refills 07/20/24 Gabapentin (Once-Daily) (Gabapentin) 300 Mg Tab, 300 MG PO, TAB 07/20/24 Atorvastatin Calcium (ATORVASTATIN CALCIUM) 20 Mg Tab, 1 TAB PO DAILY, #30 TAB 5 Refills 07/20/24 Repaglinide (REPAGLINIDE) 1 Mg Tab, 1 MG OR, TAB 07/20/24 Spironolactone (Spironolactone) 25 Mg Tab, 1 TAB PO DAILY, #90 TAB 1 Refill 07/20/24 Cinacalcet HCl (Cinacalcet Hydrochloride) 30 Mg Tab, 30 MG PO, TAB 07/20/24 Apixaban Base (ELIQUIS) 5 Mg Tab, 5 MG PO BID, TAB 07/20/24 Albuterol Sulfate (Ventolin) 2.5 Mg/0.5 Ml Nb, 1 VIAL NEB Q6HR, #120 VIAL 5 Refills 07/20/24 Discontinued Reported Medications Carvedilol (COREG) 12.5 Mg Tab, 12.5 MG OR, TAB 07/20/24 Omeprazole (Omeprazole) 20 Mg Cap, 20 MG PO, CAP 07/20/24 Current Medications Current Medications Medications (Trade) Dose Ordered Sig/Fransisco Route PRN Reason Start Time Stop Time Status Last Admin Aspirin 81 mg DAILY PO 12/17/24 10:00 Atorvastatin Calcium (Lipitor) 20 mg HS PO 12/17/24 22:00 Albuterol (Ventolin Medneb) 2.5 mg Q4HPRN PRN NEB SHORTNESS OF BREATH 12/16/24 22:30 Ipratropium [place] (Atrovent Medneb) 0.5 mg Q4HPRN PRN NEB SHORTNESS OF BREATH 12/16/24 22:30 Methylprednisolone Sodium Succinate (Solu Medrol) 40 mg Q8HR IV 12/17/24 06:00 12/17/24 06:30 Famotidine (Pepcid Injection) 20 mg Q12HR IV 12/17/24 10:00 12/16/24 22:55 DC Sevelamer HCl (Renagel) 800 mg TIDWM PO 12/17/24 08:00 12/17/24 08:19 Multivit/Ca Carb/ B Cmplx/FA/Prenat (Nephro-[place] Tablet) 1 tab DAILY PO 12/17/24 10:00 Calcium Acetate (Phoslo Capsule) 667 mg TIDWMEALS PO 12/17/24 08:00 12/17/24 08:19 Azithromycin 250 ml @ 125 mls/hr DAILY IV 12/17/24 10:00 Diagnostic Test (Pha) (Accu-Chek Comfort Curve T) 1 strip ACHS 12/17/24 07:00 12/17/24 06:31 Insulin Human Regular (InsuLIN R) ACHS SC 12/17/24 07:00 12/17/24 06:50 Dextrose 50 ml UD PRN IV Blood Sugar LESS THAN 60 12/16/24 22:30 Sodium Chloride (Saline Lock Ns) 10 ml Q8HR IV 12/17/24 06:00 12/17/24 06:30 Acetaminophen/ Hydrocodone Bitart ([place] 5/325MG Tab) 1 tab Q4HP PRN PO MODERATE PAIN (4-6 PAIN SCALE) 12/16/24 22:30 Ondansetron HCl (Zofran) 4 mg Q4HP PRN IV NAUSEA / VOMITING 12/16/24 22:30 Docusate Sodium (Colace Capsule) 100 mg BIDPRN PRN PO FOR CONSTIPATION 12/16/24 22:30 Acetaminophen (Tylenol Tablet) 650 mg Q6HP PRN PO PAIN SCALE 1-3 OR TEMP>100.4 12/16/24 22:30 Carvedilol (Coreg Tablet) 3.125 mg Q12HR PO 12/17/24 10:00 Famotidine (Pepcid Injection) 10 mg Q12HR IV 12/17/24 10:00 Nitroglycerin (Ntrostat Sublingual) 0.4 mg Q5MINP PRN SL FOR CHEST PAIN 12/16/24 23:00 Morphine Sulfate 2 mg Q30M PRN IV FOR CHEST PAIN 12/16/24 23:00 Review of Systems As described in the HPI Vital Signs Vital Signs Date Time Temp Pulse Resp B/P (MAP) Pulse Ox O2 Delivery O2 Flow Rate FiO2 12/17/24 09:00 97.7 73 18 117/90 (99) 91 97.7 12/17/24 06:53 Room Air* 0 21 Physical Exam Examination General Appearance: Alert, Oriented X3, Cooperative, No acute distress, on peritoneal dialysis HEENT: EOMI Respiratory: Clear to auscultation, Normal air movement Cardiovascular: Regular rate, Normal S1, Normal S2 Abdominal: No guarding, rigidity, tenderness, on peritoneal dialysis Extremities: No cyanosis, No edema, Normal pulses, No tenderness/swelling Skin: No rashes, No breakdown Neuro: Normal speech and tone Labs/Diagnostic Data Labs Test 12/17/24 06:41 12/17/24 05:03 12/16/24 20:47 12/16/24 19:30 Range/Units POC Glucose 437 *H 70-106 mg/dl White Blood Count 5.3 # 4.4-10.8 10^3/uL Red Blood Count 4.16 L 4.5-5.90 10^6/uL Hemoglobin 12.6 L 13.5-17.5 g/dL Hematocrit 36.9 L 41.0-53.0 % Mean Corpuscular Volume 88.7 80.0-100.0 fL Mean Corpuscular Hemoglobin 30.2 28.0-32.0 pg Mean Corpuscular Hemoglobin Concent 34.1 32.0-36.0 g/dL Red Cell Distribution Width 16.6 H 11.8-14.3 % Platelet Count 224 140-450 10^3/uL Mean Platelet Volume 7.7 6.9-10.8 fL Neutrophils (%) (Auto) 95.6 H 37.0-80.0 % Lymphocytes (%) (Auto) 3.6 L 10.0-50.0 % Monocytes (%) (Auto) 0.7 0.0-12.0 % Eosinophils (%) (Auto) 0.0 0.0-7.0 % Basophils (%) (Auto) 0.1 0.0-2.0 % Neutrophils # (Auto) 5.1 1.6-8.6 10 ^3/uL Lymphocytes # (Auto) 0.2 L 0.4-5.4 10 ^3/uL Monocytes # (Auto) 0 0-1.3 10 ^3/uL Eosinophils # (Auto) 0 0-0.8 10 ^3/uL Basophils # (Auto) 0 0-0.2 10 ^3/uL Nucleated Red Blood Cells 0.1 % Sodium Level 130 L 136-145 mmol/L Potassium Level 3.9 3.5-5.1 mmol/L Chloride Level 91 L 98-107 mmol/L Carbon Dioxide Level 23 20-31 mmol/L Anion Gap 16 H 5-15 Blood Urea Nitrogen 69 H 9-23 mg/dL Creatinine 6.90 H 0.700-1.30 mg/dL Glomerular Filtration Rate Calc 8 >90 mL/min BUN/Creatinine Ratio 10.0 10.0-20.0 Serum Glucose 393 #H 74-106 mg/dL Calcium Level 8.1 L 8.7-10.4 mg/dL Total Bilirubin 0.5 0.2-1.0 mg/dL Aspartate Amino Transferase (AST) 16 13-40 U/L Alanine Aminotransferase (ALT) 45 H 7-40 U/L Alkaline Phosphatase 85 46-116 U/L Total Protein 7.0 5.7-8.2 g/dL Albumin 3.8 3.2-4.8 g/dL Troponin I High Sensitivity 114 *H </=54 ng/L Urine Color Yellow Yellow Urine Clarity Clear Clear Urine pH 5.0 5.0-9.0 Urine Specific [place] 1.032 1.001-1.035 Urine Protein Trace H Negative Urine Ketones Negative Negative Urine Blood Negative Negative /uL Urine Nitrite Negative Negative Urine Bilirubin Negative Negative Urine Urobilinogen Normal Negative mg/dL Urine Leukocyte Esterase 1+ Negative /uL Urine RBC 3 0 - 3 /hpf Urine Microscopic WBC 4 H 0-3 /HPF Urine Squamous Epithelial Cells Few <5 /hpf Urine Bacteria Few H None Seen /hpf Urine Glucose 2+ H Normal mg/dL Test 12/16/24 17:47 Range/Units B-Type Natriuretic Peptide 182.53 0-100 pg/mL Assessment Assessment/plan # end-stage renal disease on peritoneal dialysis -labs 12/17/2024 BUN 69 Creatinine 6.9 # acute respiratory distress likely superimposed bacterial UTI on previous COVID-19 infection Currently on room air #diabetes mellitus type 2 #CHF #atrial fibrillation status post failed cardioversion and planned to have ablation #hypertension #sleep apnea Plan/Recommendation Plan continue PD via cycler Renal diet Monitor kidney function and electrolytes Continue home medication calcium acetate capsule 667 mg t.i.d. with meals Continue sevelamer 800 mg p.o. t.i.d., home medication and cinacalcet 30 mg every other day and metolazone 5 mg daily Continue peritoneal dialysis for 9 hours every day Optimize management to have Tighter control of diabetes Repeat chest x-ray tomorrow IV Bumex 2 mg once We will reassess for volume status tomorrow. Outpatient follow up with Nephrology Case discussion with Dr. Herrera Plan discussed with: Patient, Other CHITO BATRES RESIDENT Dec 17, 2024 11:37 ALYSE HERRERA MD Dec 18, 2024 14:55
[2024-12-17] MEDS: ACETAMINOPHEN 325 MG TAB PO PRN (11:47)
[2024-12-17] MEDS ORDERED: DEXTROSE (50%) 50ML SYRG IV PRN (14:15)
--- NOTE | 2024-12-17 14:23 | DVHPN2 ---
Progress Note Date Seen: Dec 17, 2024 Medical Necessity Reason Pt with a Central, PICC or Fol: No Subjective Patient reports: No new complaints Review of Systems: HEENT:Normal, CVS:Normal, RESPIRATORY:Normal, GI:Normal, :Normal, MSK:Normal, NEURO:Normal Objective vital signs Vital Sign Date Time Temp Pulse Resp B/P (MAP) Pulse Ox O2 Delivery O2 Flow Rate FiO2 12/17/24 13:00 97.5 77 19 126/97 (107) 94 97.5 12/17/24 06:53 Room Air* 0 21 Total Intake and Output 12/16/24 12/16/24 12/17/24 15:00 23:00 07:00 Intake Total 100 ml Balance 100 ml medications Current Medications Medications Dose Ordered Sig/Fransisco Route Start Time Stop Time Status Last Admin Dose Admin Aspirin 81 mg DAILY PO 12/17/24 10:00 12/17/24 11:19 81 MG Atorvastatin Calcium 20 mg HS PO 12/17/24 22:00 Albuterol 2.5 mg Q4HPRN PRN NEB 12/16/24 22:30 Ipratropium [place] 0.5 mg Q4HPRN PRN NEB 12/16/24 22:30 Sevelamer HCl 800 mg TIDWM PO 12/17/24 08:00 12/17/24 11:19 800 MG Multivit/Ca Carb/ B Cmplx/FA/Prenat 1 tab DAILY PO 12/17/24 10:00 12/17/24 11:18 1 TAB Calcium Acetate 667 mg TIDWMEALS PO 12/17/24 08:00 12/17/24 11:19 667 MG Diagnostic Test (Pha) 1 strip ACHS 12/17/24 07:00 12/17/24 11:19 1 STRIP Dextrose 50 ml UD PRN IV 12/16/24 22:30 Sodium Chloride 10 ml Q8HR IV 12/17/24 06:00 12/17/24 06:30 10 ML Acetaminophen/ Hydrocodone Bitart 1 tab Q4HP PRN PO 12/16/24 22:30 Ondansetron HCl 4 mg Q4HP PRN IV 12/16/24 22:30 Docusate Sodium 100 mg BIDPRN PRN PO 12/16/24 22:30 Acetaminophen 650 mg Q6HP PRN PO 12/16/24 22:30 8/26/25 11:47 650 MG Carvedilol 3.125 mg Q12HR PO 12/17/24 10:00 12/17/24 11:19 3.125 MG Nitroglycerin 0.4 mg Q5MINP PRN SL 12/16/24 23:00 Morphine Sulfate 2 mg Q30M PRN IV 12/16/24 23:00 Insulin Glargine 15 units HS SC 12/17/24 22:00 UNV Diagnostic Test (Pha) 1 strip ACHS 12/17/24 17:00 UNV Insulin Human Regular HS SC 12/17/24 22:00 UNV Insulin Human Regular AC SC 12/17/24 17:00 UNV Dextrose 50 ml UD PRN IV 12/17/24 14:15 UNV Apixaban 2.5 mg BID PO 12/17/24 22:00 UNV Tamsulosin HCl 0.4 mg QPM PO 12/17/24 18:00 UNV Examination: GENERAL:Normal, HEENT:Normal, NECK:Normal, LUNGS:Normal, CVS:Normal, ABDOMEN:Normal, ABDOMEN:Abnormal (PD CATHETER), MSK:Normal, SKIN:Normal, NEURO:Normal, :Normal laboratory and microbiology Laboratory Tests 12/17/24 05:03 Test 12/17/24 05:03 Range/Units Serum Glucose 393 #H 74-106 mg/dL Problem List/Assessment/Plan Problem List/Assessment/Plan #1 acute on chronic diastolic heart failure: dialysis #2 uncontrolled dm: lantus, ssi #3 esrd: on pd #4 htn #5 a fib with secondary hypercoagulable state: eliquis #6 obesity #7 nstemi ?type 2 #8 ?pneumonia: repeat xray in am advance care planning- full code- time spent 18 mins Plan discussed with: Patient My Orders My Orders Orders - LESLIE ADMAS MD Procedure Category Date Status Time Insulin Lantus PHA 12/17/24 Logged (Glargine) (Lantus) 22:00 Insulin Lantus PHA 12/17/24 Logged (Glargine) (Lantus) 14:15 Glucose Blood PHA 12/17/24 Logged (Accu-Chek Comfort 17:00 Insulin R (Human) PHA 12/17/24 Logged (Insulin R) 22:00 Insulin R (Human) PHA 12/17/24 Logged (Insulin R) 17:00 Dextrose 50% Syringe PHA 12/17/24 Logged 14:15 Apixaban (Eliquis) PHA 12/17/24 Transmitted 22:00 Tamsulosin PHA 12/17/24 Transmitted Hydrochloride (Flomax) 18:00 Basic Metabolic Panel LAB 12/18/24 Verified 06:00 Complete Blood Count LAB 12/18/24 Verified 06:00 Chest Portable XY 12/18/24 Transmitted 06:00 Date of Service: Dec 17, 2024 Billing Provider: LESLIE ADAMS MD Common Visit Codes: [id number] INP/OBS CARE(HIGH) Secondary Visit Codes: [id number] CARE PLAN 30 MINUTES LESLIE ADAMS MD Dec 17, 2024 14:23
[2024-12-17] MEDS: INSULIN LANTUS (GLARGINE) 1 /0.01ml (100units/ml) SC ONE (16:40)
[2024-12-17] MEDS: TAMSULOSIN HYDROCHLORIDE 0.4 MG CAP PO SCH (18:11)
[2024-12-17] MEDS: DOCUSATE SOD 100 MG CAP PO PRN (18:11)
[2024-12-17] MEDS: ATORVASTATIN 20 MG TAB PO SCH (22:56)
[2024-12-17] MEDS: APIXABAN 2.5 MG TAB PO SCH (22:56)
[2024-12-17] MEDS: INSULIN LANTUS (GLARGINE) 1 /0.01ml (100units/ml) SC SCH (22:58)
[2024-12-18] VITALS (11 sets, daily range): BP systolic 112–136; BP diastolic 66–88; PULSE 65–94; RESP 16–20; TEMP 97.1–98.1; O2SAT 90–97
[2024-12-18] MEDS: guaiFENesin-DM 100/10mg/5ml SYR PO ONE (02:50)
[2024-12-18 05:37] LABS: Hematocrit 35.1 % (41.0-53.0); Hemoglobin 12.3 g/dL (13.5-17.5); Mean Corpuscular Hemoglobin 30.4 pg (28.0-32.0); Mean Corpuscular Volume 86.6 fL (80.0-100.0); Nucleated Red Blood Cells % 0.1 %
[2024-12-18 05:40] LABS: Potassium 3.5 mmol/L (3.5-5.1)
[2024-12-18 05:41] LABS: Anion Gap 13 (5-15); Carbon Dioxide 26 mmol/L (20-31); Chloride 91 mmol/L (98-107); Sodium 130 mmol/L (136-145)
[2024-12-18 05:42] LABS: Calcium 8.5 mg/dL (8.7-10.4)
[2024-12-18 05:47] LABS: BUN/Creatinine Ratio 11.7 (10.0-20.0); Magnesium 2.0 mg/dL (1.6-2.6)
[2024-12-18 05:54] LABS: Blood Urea Nitrogen 71 mg/dL (9-23); Glucose 313 mg/dL (74-106)
--- NOTE | 2024-12-18 07:27 | DVH ---
INDICATION: sob TECHNIQUE: XY CHEST PORTABLE COMPARISON: None COMPARISON: XY CHEST PORTABLE on DOS: 12/16/24, CT CHEST WITHOUT CONTRAST on DOS: 07/22/24, XY CHEST PO RTABLE on DOS: 07/19/24, XY CHEST PORTABLE on DOS: 12/16/24 FINDINGS: The cardiac silhouette is enlarged. The lungs demonstrate bilateral patchy airspace opacities, right- [id number]. The pulmonary vasculature is prominent. Small bilateral pleural effusions. There i s no pneumothorax. IMPRESSION: Cardiomegaly with pulmonary vascular congestion and bilateral patchy airspace opacities. Small bilateral pleural effusions.
[2024-12-18] MEDS: METOPROLOL SUCCINATE XL 50 MG TAB PO SCH (09:21)
[2024-12-18] MEDS: CINACALCET HYDROCHLORIDE 30 MG TAB PO SCH (09:23)
--- NOTE | 2024-12-18 11:57 | DVHPN2 ---
Progress Note Date Seen: Dec 18, 2024 Medical Necessity Reason Pt with a Central, PICC or Fol: No Subjective Patient reports: No new complaints Review of Systems: HEENT:Normal, CVS:Normal, RESPIRATORY:Normal, GI:Normal, :Normal, MSK:Normal, NEURO:Normal Objective vital signs Vital Sign Date Time Temp Pulse Resp B/P (MAP) Pulse Ox O2 Delivery O2 Flow Rate FiO2 12/18/24 09:22 65 117/77 12/18/24 08:38 93 Room Air 12/18/24 08:38 0 21 12/18/24 08:31 97.9 16 97.9 Total Intake and Output 12/17/24 12/17/24 12/18/24 15:00 23:00 07:00 Intake Total 250 ml 25 ml 300 ml Output Total 200 ml Balance 250 ml 25 ml 100 ml medications Current Medications Medications Dose Ordered Sig/Fransisco Route Start Time Stop Time Status Last Admin Dose Admin Aspirin 81 mg DAILY PO 12/17/24 10:00 12/18/24 09:22 81 MG Atorvastatin Calcium 20 mg HS PO 12/17/24 22:00 12/17/24 22:56 20 MG Albuterol 2.5 mg Q4HPRN PRN NEB 12/16/24 22:30 Ipratropium [place] 0.5 mg Q4HPRN PRN NEB 12/16/24 22:30 Sevelamer HCl 800 mg TIDWM PO 12/17/24 08:00 12/18/24 08:24 800 MG Multivit/Ca Carb/ B Cmplx/FA/Prenat 1 tab DAILY PO 12/17/24 10:00 12/18/24 09:23 1 TAB Calcium Acetate 667 mg TIDWMEALS PO 12/17/24 08:00 12/18/24 08:24 667 MG Sodium Chloride 10 ml Q8HR IV 12/17/24 06:00 12/18/24 06:12 10 ML Acetaminophen/ Hydrocodone Bitart 1 tab Q4HP PRN PO 12/16/24 22:30 Ondansetron HCl 4 mg Q4HP PRN IV 12/16/24 22:30 Docusate Sodium 100 mg BIDPRN PRN PO 12/16/24 22:30 12/17/24 18:11 100 MG Acetaminophen 650 mg Q6HP PRN PO 12/16/24 22:30 12/17/24 11:47 650 MG Carvedilol 3.125 mg Q12HR PO 12/17/24 10:00 12/18/24 09:22 3.125 MG Nitroglycerin 0.4 mg Q5MINP PRN SL 12/16/24 23:00 Morphine Sulfate 2 mg Q30M PRN IV 12/16/24 23:00 Insulin Glargine 15 units HS SC 12/17/24 22:00 12/17/24 22:58 15 UNITS Diagnostic Test (Pha) 1 strip ACHS 12/17/24 17:00 12/18/24 06:12 1 STRIP Insulin Human Regular HS SC 12/17/24 22:00 12/17/24 22:58 8 UNITS Insulin Human Regular AC SC 12/17/24 17:00 12/18/24 06:13 9 UNITS Dextrose 50 ml UD PRN IV 12/17/24 14:15 Apixaban 2.5 mg BID PO 12/17/24 22:00 12/18/24 09:22 2.5 MG Tamsulosin HCl 0.4 mg QPM PO 12/17/24 18:00 12/17/24 18:11 0.4 MG Metoprolol Succinate 25 mg DAILY PO 12/18/24 10:00 12/18/24 09:21 25 MG Metolazone 5 mg EOD PO 12/19/24 10:00 Cinacalcet 30 mg DAILY PO 12/18/24 10:00 Examination: GENERAL:Normal, HEENT:Normal, NECK:Normal, LUNGS:Normal, CVS:Normal, ABDOMEN:Normal, ABDOMEN:Abnormal (pd catheter), MSK:Normal, SKIN:Normal, NEURO:Normal, :Normal laboratory and microbiology Laboratory Tests 12/18/24 05:05 Test 12/18/24 05:05 Range/Units Serum Glucose 313 H 74-106 mg/dL Microbiology Date/Time Source Procedure Growth Status 12/17/24 08:10 Nose MRSA Screen - Final Complete Problem List/Assessment/Plan Problem List/Assessment/Plan #1 acute on chronic diastolic heart failure: dialysis #2 uncontrolled dm: lantus, ssi #3 esrd: on pd #4 htn #5 a fib with secondary hypercoagulable state: eliquis #6 obesity #7 nstemi ?type 2 #8 right pneumonia with ?sepsis: ct chest, iv zosyn advance care planning- full code- time spent 18 mins Plan discussed with: Patient My Orders My Orders Orders - LESLIE ADAMS MD Procedure Category Date Status Time Insulin Lantus PHA 12/17/24 In Process (Glargine) (Lantus) 22:00 Glucose Blood PHA 12/17/24 In Process (Accu-Chek Comfort 17:00 Insulin R (Human) PHA 12/17/24 In Process (Insulin R) 22:00 Insulin R (Human) PHA 12/17/24 In Process (Insulin R) 17:00 Dextrose 50% Syringe PHA 12/17/24 In Process 14:15 Apixaban (Eliquis) PHA 12/17/24 In Process 22:00 Tamsulosin PHA 12/17/24 In Process Hydrochloride (Flomax) 18:00 Metoprolol Xl PHA 12/18/24 In Process Succinate (Toprol Xl) 10:00 Date of Service: Dec 18, 2024 Billing Provider: LESLIE ADAMS MD Common Visit Codes: [id number] INP/OBS CARE(HIGH) LESLIE ADAMS MD Dec 18, 2024 11:57
[2024-12-18] MEDS: PIPERACILLIN-TAZOB 2.25GM 50 ML IV ONE (13:58)
[2024-12-18] MEDS ORDERED: PIPERACILLIN-TAZOB 2.25GM 50 ML IV SCH (14:00)
--- NOTE | 2024-12-18 14:00 | DVH ---
Procedure: CT CHEST WITHOUT CONTRAST Reason for study/Clinical History: right pnemonia Comparison Study: XY CHEST PORTABLE on DOS: 12/18/24, XY CHEST PORTABLE on DOS: 12/16/24, CT CHEST WITH OUT CONTRAST on DOS: 07/22/24, XY CHEST PORTABLE on DOS: 07/19/24 TECHNIQUE: Multidetector CT of the chest was performed from the lung apices to the upper abdomen with out the use of intravenous contract. Axial, coronal and sagittal multiplanar reformats were performed . Radiation Dose Information: CT Dose: CTDI volume is 22.71 mGy. Dose-length product is 815.61 mGy*cm The dose indicators for CT are the volume Computed Tomography (CT) Dose Index (CTDIvol) and the Dose Length Product (DLP), and are measured in units of mGy and mGy-cm, respectively. These indicators are not patient dose, but values generated from the CT scanner acquisition factors. The report includes radiation exposure data for exposures received during this examination. FINDINGS: Lower neck: Unremarkable. Lungs: Multifocal airspace disease most prominent in the right upper lobe and left lower lobe. Heart/Vascular Structures: Severe 3-vessel coronary artery disease. Cardiomegaly. Lymph Nodes: No adenopathy Pleura: No pleural effusion or significant pneumothorax. Musculoskeletal: No acute osseous abnormality. Multilevel degenerative changes of the spine. Soft tissues: Normal. Upper abdomen: Small volume upper abdominal ascites. Mildly nodular hepatic contours may represent c hanges of cirrhosis. IMPRESSION: Multifocal airspace disease most prominent in the right upper lobe and left lung base. Severe 3-vessel coronary artery disease. Small volume upper abdominal ascites. Mildly nodular hepatic contours may represent changes of cirrh osis.
--- NOTE | 2024-12-18 14:58 | DVHPN2 ---
Progress Note Date Seen: Dec 18, 2024 Medical Necessity Reason Pt with a Central, PICC or Fol: No Subjective Patient reports: No new complaints, Feels better Review of Systems: HEENT:Normal, CVS:Normal, RESPIRATORY:Abnormal, GI:Normal, :Normal, MSK:Normal, NEURO:Normal Objective vital signs Vital Sign Date Time Temp Pulse Resp B/P (MAP) Pulse Ox O2 Delivery O2 Flow Rate FiO2 12/18/24 13:00 98.1 67 16 126/88 (101) 96 98.1 12/18/24 08:38 Room Air 12/18/24 08:38 0 21 Total Intake and Output 12/17/24 12/17/24 12/18/24 15:00 23:00 07:00 Intake Total 250 ml 25 ml 300 ml Output Total 200 ml Balance 250 ml 25 ml 100 ml medications Current Medications Medications Dose Ordered Sig/Fransisco Route Start Time Stop Time Status Last Admin Dose Admin Aspirin 81 mg DAILY PO 12/17/24 10:00 12/18/24 09:22 81 MG Atorvastatin Calcium 20 mg HS PO 12/17/24 22:00 12/17/24 22:56 20 MG Albuterol 2.5 mg Q4HPRN PRN NEB 12/16/24 22:30 Ipratropium [place] 0.5 mg Q4HPRN PRN NEB 12/16/24 22:30 Sevelamer HCl 800 mg TIDWM PO 12/17/24 08:00 12/18/24 12:21 800 MG Multivit/Ca Carb/ B Cmplx/FA/Prenat 1 tab DAILY PO 12/17/24 10:00 12/18/24 09:23 1 TAB Calcium Acetate 667 mg TIDWMEALS PO 12/17/24 08:00 12/18/24 12:21 667 MG Sodium Chloride 10 ml Q8HR IV 12/17/24 06:00 12/18/24 13:53 10 ML Acetaminophen/ Hydrocodone Bitart 1 tab Q4HP PRN PO 12/16/24 22:30 Ondansetron HCl 4 mg Q4HP PRN IV 12/16/24 22:30 Docusate Sodium 100 mg BIDPRN PRN PO 12/16/24 22:30 12/17/24 18:11 100 MG Acetaminophen 650 mg Q6HP PRN PO 12/16/24 22:30 12/17/24 11:47 650 MG Carvedilol 3.125 mg Q12HR PO 12/17/24 10:00 12/18/24 09:22 3.125 MG Nitroglycerin 0.4 mg Q5MINP PRN SL 12/16/24 23:00 Morphine Sulfate 2 mg Q30M PRN IV 12/16/24 23:00 Diagnostic Test (Pha) 1 strip ACHS 12/17/24 17:00 12/18/24 11:30 1 STRIP Insulin Human Regular HS SC 12/17/24 22:00 12/17/24 22:58 8 UNITS Insulin Human Regular AC SC 12/17/24 17:00 12/18/24 12:22 3 UNITS Dextrose 50 ml UD PRN IV 12/17/24 14:15 Apixaban 2.5 mg BID PO 12/17/24 22:00 12/18/24 09:22 2.5 MG Tamsulosin HCl 0.4 mg QPM PO 12/17/24 18:00 12/17/24 18:11 0.4 MG Metoprolol Succinate 25 mg DAILY PO 12/18/24 10:00 12/18/24 09:21 25 MG Metolazone 5 mg EOD PO 12/19/24 10:00 Cinacalcet 30 mg DAILY PO 12/18/24 10:00 Insulin Glargine 20 units HS SC 12/18/24 22:00 Piperacillin Sod/ Tazobactam Sod 50 ml @ 12.5 mls/hr Q8HR IV 12/18/24 22:00 Examination: GENERAL:Normal, HEENT:Normal, NECK:Normal, LUNGS:Normal, LUNGS:Abnormal, CVS:Normal, ABDOMEN:Normal, MSK:Normal, SKIN:Normal, NEURO:Normal, :Normal laboratory and microbiology Laboratory Tests 12/18/24 05:05 Test 12/18/24 05:05 Range/Units Serum Glucose 313 H 74-106 mg/dL Microbiology Date/Time Source Procedure Growth Status 12/17/24 08:10 Nose MRSA Screen - Final Complete Problem List/Assessment/Plan Problem List/Assessment/Plan # end-stage renal disease on peritoneal dialysis # acute hypoxic resp failure/PNA likely #diabetes mellitus type 2 #CHF #atrial fibrillation status post failed cardioversion and planned to have ablation #hypertension #sleep apnea Plan/Recommendation continue PD via cycler --no issues with cycler per pt -- Renal diet resume home meds Plan discussed with: Patient ALYSE HERRERA MD Dec 18, 2024 14:58
[2024-12-18] MEDS: BUMETANIDE 1mg/4ml VIAL (0.25mg/ml) IV SCH (17:03)
[2024-12-18] MEDS: PIPERACILLIN-TAZOB 2.25GM 50 ML IV SCH (22:20)
[2024-12-18] MEDS: INSULIN LANTUS (GLARGINE) 1 /0.01ml (100units/ml) SC SCH (22:22)
[2024-12-19] VITALS (13 sets, daily range): BP systolic 97–115; BP diastolic 59–77; PULSE 62–102; RESP 16–20; TEMP 97.5–99; O2SAT 91–98
[2024-12-19 12:20] LABS: Anion Gap 12 (5-15); Carbon Dioxide 29 mmol/L (20-31)
[2024-12-19 12:22] LABS: Calcium 8.6 mg/dL (8.7-10.4); Chloride 92 mmol/L (98-107); Potassium 3.2 mmol/L (3.5-5.1); Sodium 133 mmol/L (136-145)
[2024-12-19 12:25] LABS: BUN/Creatinine Ratio 10.8 (10.0-20.0); Glucose 79 mg/dL (74-106)
[2024-12-19 12:26] LABS: Blood Urea Nitrogen 67 mg/dL (9-23); Magnesium 2.0 mg/dL (1.6-2.6)
--- NOTE | 2024-12-19 13:20 | DVHPN2 ---
Progress Note Date Seen: Dec 19, 2024 Resident Creating Document: CHITO BATRES RESIDENT Medical Necessity Reason Pt with a Central, PICC or Fol: No Subjective Review of Systems History of Present Illness History of present illness 69-year-old male patient with past medical history of diabetes mellitus for last 20 years, CHF, atrial fibrillation status post failed cardioversion and planned to have ablation, end-stage renal disease on peritoneal dialysis that was started last year in February, CKD for nine years, hypertension, atrial fibrillation, sleep apnea presented with complaints of shortness of breath associated with cough. Patient mentioned that he had COVID seven days ago and was tested negative but still had symptoms of cough on Monday. Patient went to urgent care where he was found to have low oxygen and was referred to the ER. He also mentioned that he had associated fever on Monday that is resolved today. Patient was initially on oxygen in the hospital but now is on room air, mentioning mild cough with sputum. Patient mentioned that he sees Dr. Keane for outpatient nephrology and is on dialysis every day 9 hours. Patient mentioned that he still makes urine around 50-100 mL every day. Denied any complaints of burning micturition, urgency, frequency. Denied any flank pain, fever, chills, abdominal pain Nephrology was consulted for management for end-stage renal disease. Patient is currently on peritoneal dialysis in the hospital Past medical history diabetes mellitus for last 20 years CHF atrial fibrillation status post failed cardioversion and planned to have ablation end-stage renal disease on peritoneal dialysis that was started last year in February CKD for nine years, hypertension sleep apnea Past surgical history No recent surgery Family History Family History: Reviewed,noncontributory to illness Social History Smoker: Non-Smoker Alcohol: Denies ETOH Use Drugs: Denies Drug Use Lives In: Home Medication history Albuterol Amlodipine Eliquis Atorvastatin Buprenorphine Metolazone Cinacalcet Metoprolol Repaglinide sevelamer Spironolactone Insulin Gabapentin Interval event 12/19/2024 No active symptoms, on room Patient receiving a peritoneal dialysis at bedtime Objective vital signs Vital Sign Date Time Temp Pulse Resp B/P (MAP) Pulse Ox O2 Delivery O2 Flow Rate FiO2 12/19/24 10:51 114/65 12/19/24 10:51 87 12/19/24 09:30 97.9 18 92 97.9 12/19/24 08:00 Room Air* 0 21 Total Intake and Output 12/18/24 12/18/24 12/19/24 15:00 23:00 07:00 Intake Total 500 ml 290 ml Output Total 200 ml Balance 300 ml 290 ml medications Current Medications Medications Dose Ordered Sig/Fransisco Route Start Time Stop Time Status Last Admin Dose Admin Aspirin 81 mg DAILY PO 12/17/24 10:00 12/19/24 10:52 81 MG Atorvastatin Calcium 20 mg HS PO 12/17/24 22:00 12/18/24 22:20 20 MG Albuterol 2.5 mg Q4HPRN PRN NEB 12/16/24 22:30 Ipratropium [place] 0.5 mg Q4HPRN PRN NEB 12/16/24 22:30 Sevelamer HCl 800 mg TIDWM PO 12/17/24 08:00 12/19/24 11:45 800 MG Multivit/Ca Carb/ B Cmplx/FA/Prenat 1 tab DAILY PO 12/17/24 10:00 12/19/24 10:50 1 TAB Calcium Acetate 667 mg TIDWMEALS PO 12/17/24 08:00 12/19/24 11:45 667 MG Sodium Chloride 10 ml Q8HR IV 12/17/24 06:00 12/19/24 06:32 10 ML Acetaminophen/ Hydrocodone Bitart 1 tab Q4HP PRN PO 12/16/24 22:30 Ondansetron HCl 4 mg Q4HP PRN IV 12/16/24 22:30 Docusate Sodium 100 mg BIDPRN PRN PO 12/16/24 22:30 12/19/24 08:02 100 MG Acetaminophen 650 mg Q6HP PRN PO 12/16/24 22:30 12/17/24 11:47 650 MG Carvedilol 3.125 mg Q12HR PO 12/17/24 10:00 12/18/24 22:21 3.125 MG Nitroglycerin 0.4 mg Q5MINP PRN SL 12/16/24 23:00 Morphine Sulfate 2 mg Q30M PRN IV 12/16/24 23:00 Diagnostic Test (Pha) 1 strip ACHS 12/17/24 17:00 12/19/24 11:45 1 STRIP Insulin Human Regular HS SC 12/17/24 22:00 12/18/24 22:22 4 UNITS Insulin Human Regular AC SC 12/17/24 17:00 12/18/24 17:03 3 UNITS Dextrose 50 ml UD PRN IV 12/17/24 14:15 Apixaban 2.5 mg BID PO 12/17/24 22:00 12/19/24 10:50 2.5 MG Tamsulosin HCl 0.4 mg QPM PO 12/17/24 18:00 12/18/24 17:04 0.4 MG Metoprolol Succinate 25 mg DAILY PO 12/18/24 10:00 12/19/24 10:51 25 MG Metolazone 5 mg EOD PO 12/19/24 10:00 12/19/24 10:51 5 MG Cinacalcet 30 mg DAILY PO 12/18/24 10:00 Insulin Glargine 20 units HS SC 12/18/24 22:00 12/18/24 22:22 20 UNITS Piperacillin Sod/ Tazobactam Sod 50 ml @ 12.5 mls/hr Q8HR IV 12/18/24 22:00 12/19/24 06:36 12.5 MLS/HR Bumetanide 1 mg BIDD IV 12/18/24 18:00 12/18/24 17:03 1 MG Examination Examination General Appearance: Alert, Oriented X3, Cooperative, No acute distress, on peritoneal dialysis HEENT: EOMI Respiratory: Clear to auscultation, Normal air movement Cardiovascular: Regular rate, Normal S1, Normal S2 Abdominal: No guarding, rigidity, tenderness, on peritoneal dialysis Extremities: No cyanosis, No edema, Normal pulses, No tenderness/swelling Skin: No rashes, No breakdown Neuro: Normal speech and tone laboratory and microbiology Laboratory Tests 12/19/24 11:48 12/18/24 05:05 Test 12/19/24 11:48 Range/Units Serum Glucose 79 # 74-106 mg/dL Microbiology Date/Time Source Procedure Growth Status 12/17/24 08:10 Nose MRSA Screen - Final Complete Labs and/or images reviewed: Labs reviewed by me, Image(s) reviewed by me Problem List/Assessment/Plan Problem List/Assessment/Plan Assessment/plan # end-stage renal disease on peritoneal dialysis # Hypokalemia # acute respiratory distress likely superimposed bacterial pneumonia on previous COVID-19 infection Currently on room air #diabetes mellitus type 2 #CHF #atrial fibrillation status post failed cardioversion and planned to have ablation #hypertension #sleep apnea Plan/Recommendation Plan continue PD via cycler Renal diet Monitor kidney function and electrolytes Continue home medication calcium acetate capsule 667 mg t.i.d. with meals Continue sevelamer 800 mg p.o. t.i.d., home medication and cinacalcet 30 mg every other day and metolazone 5 mg daily Continue peritoneal dialysis for 9 hours every day Optimize management to have Tighter control of diabetes IV Bumex 2 mg BID oral potassium effervescent 50 meq once Outpatient follow up with Nephrology Case discussion with Dr. Leos Addendum Patient seen and examined, plan discussed with resident. Agree with above, we will follow closely Plan discussed with: Patient, Other CHITO BATRES Dec 19, 2024 13:20 ALYSE LEOS MD Dec 19, 2024 16:41
[2024-12-19] MEDS: POTASSIUM EFFERVESENT TAB 25 MEQ PO ONE (14:14)
--- NOTE | 2024-12-19 15:51 | DVHPN2 ---
Progress Note Date Seen: Dec 19, 2024 Medical Necessity Reason Pt with a Central, PICC or Fol: No Subjective Patient reports: No new complaints Review of Systems: HEENT:Normal, CVS:Normal, RESPIRATORY:Normal, GI:Normal, :Normal, MSK:Normal, NEURO:Normal Objective vital signs Vital Sign Date Time Temp Pulse Resp B/P (MAP) Pulse Ox O2 Delivery O2 Flow Rate FiO2 12/19/24 13:00 97.8 76 17 102/73 (83) 95 97.8 12/19/24 10:00 Room Air 0.0 12/19/24 10:00 21 Total Intake and Output 12/18/24 12/18/24 12/19/24 15:00 23:00 07:00 Intake Total 500 ml 290 ml Output Total 200 ml Balance 300 ml 290 ml medications Current Medications Medications Dose Ordered Sig/[place] Route Start Time Stop Time Status Last Admin Dose Admin Aspirin 81 mg DAILY PO 12/17/24 10:00 12/19/24 10:52 81 MG Atorvastatin Calcium 20 mg HS PO 12/17/24 22:00 12/18/24 22:20 20 MG Albuterol 2.5 mg Q4HPRN PRN NEB 12/16/24 22:30 Ipratropium [place] 0.5 mg Q4HPRN PRN NEB 12/16/24 22:30 Sevelamer HCl 800 mg TIDWM PO 12/17/24 08:00 12/19/24 11:45 800 MG Multivit/Ca Carb/ B Cmplx/FA/Prenat 1 tab DAILY PO 12/17/24 10:00 12/19/24 10:50 1 TAB Calcium Acetate 667 mg TIDWMEALS PO 12/17/24 08:00 12/19/24 11:45 667 MG Sodium Chloride 10 ml Q8HR IV 12/17/24 06:00 12/19/24 14:14 10 ML Acetaminophen/ Hydrocodone Bitart 1 tab Q4HP PRN PO 12/16/24 22:30 Ondansetron HCl 4 mg Q4HP PRN IV 12/16/24 22:30 Docusate Sodium 100 mg BIDPRN PRN PO 12/16/24 22:30 12/19/24 08:02 100 MG Acetaminophen 650 mg Q6HP PRN PO 12/16/24 22:30 12/17/24 11:47 650 MG Carvedilol 3.125 mg Q12HR PO 12/17/24 10:00 12/18/24 22:21 3.125 MG Nitroglycerin 0.4 mg Q5MINP PRN SL 12/16/24 23:00 Morphine Sulfate 2 mg Q30M PRN IV 12/16/24 23:00 Diagnostic Test (Pha) 1 strip ACHS 12/17/24 17:00 12/19/24 11:45 1 STRIP Insulin Human Regular HS SC 12/17/24 22:00 12/18/24 22:22 4 UNITS Insulin Human Regular AC SC 12/17/24 17:00 12/18/24 17:03 3 UNITS Dextrose 50 ml UD PRN IV 12/17/24 14:15 Apixaban 2.5 mg BID PO 12/17/24 22:00 12/19/24 10:50 2.5 MG Tamsulosin HCl 0.4 mg QPM PO 12/17/24 18:00 12/18/24 17:04 0.4 MG Metoprolol Succinate 25 mg DAILY PO 12/18/24 10:00 12/19/24 10:51 25 MG Metolazone 5 mg EOD PO 12/19/24 10:00 12/19/24 10:51 5 MG Cinacalcet 30 mg DAILY PO 12/18/24 10:00 Insulin Glargine 20 units HS [place] 12/18/24 22:00 12/18/24 22:22 20 UNITS Piperacillin Sod/ Tazobactam Sod 50 ml @ 12.5 mls/hr Q8HR IV 12/18/24 22:00 12/19/24 14:15 12.5 MLS/HR Bumetanide 1 mg BIDD IV 12/18/24 18:00 12/18/24 17:03 1 MG Examination: GENERAL:Normal, HEENT:Normal, NECK:Normal, LUNGS:Normal, CVS:Normal, ABDOMEN:Normal, MSK:Normal, SKIN:Normal, NEURO:Normal, :Normal laboratory and microbiology Laboratory Tests 12/19/24 11:48 12/18/24 05:05 Test 12/19/24 11:48 Range/Units Serum Glucose 79 # 74-106 mg/dL Microbiology Date/Time Source Procedure Growth Status 12/17/24 08:10 Nose MRSA Screen - Final Complete Problem List/Assessment/Plan Problem List/Assessment/Plan #1 acute on chronic diastolic heart failure: dialysis #2 uncontrolled dm: lantus, ssi #3 esrd: on pd #4 htn #5 a fib with secondary hypercoagulable state: eliquis #6 obesity #7 nstemi ?type 2 #8 right pneumonia with ?sepsis: ct chest, iv zosyn advance care planning- full code- time spent 18 mins Plan discussed with: Patient, Daughter My Orders My Orders Orders - LESLIE ADAMS MD Procedure Category Date Status Time Guaifenesin-Dextromet PHA 12/19/24 Verified Liquid (Robitussin 16:00 Albuterol Medneb PHA 12/19/24 Verified (Ventolin Medneb) 18:00 Ipratropium Med[place] PHA 12/19/24 Verified (Atrovent Medneb) 18:00 Date of Service: Dec 19, 2024 Billing Provider: LESLIE DAAMS MD Common Visit Codes: [id number] INP/OBS CARE(HIGH) LESLIE ADAMS MD Dec 19, 2024 15:51
[2024-12-19] MEDS: guaiFENesin-DM 100/10mg/5ml SYR PO PRN (17:42)
[2024-12-19] MEDS: ALBUTEROL SULF 2.5 MG/0.5ML(0.5%) NEB SOLN NEB SCH (17:56)
[2024-12-19] MEDS: IPRATROPIUM BROM 0.5 MG/2.5ML INH SOL NEB SCH (17:56)
[2024-12-20] VITALS (16 sets, daily range): BP systolic 101–124; BP diastolic 57–86; PULSE 53–87; RESP 14–18; TEMP 96.8–98; O2SAT 93–100
[2024-12-20 10:40] LABS: Anion Gap 14 (5-15); Carbon Dioxide 26 mmol/L (20-31)
[2024-12-20 10:58] LABS: Calcium 8.0 mg/dL (8.7-10.4); Chloride 92 mmol/L (98-107); Glucose 143 mg/dL (74-106); Potassium 3.0 mmol/L (3.5-5.1); Sodium 132 mmol/L (136-145)
[2024-12-20 11:06] LABS: BUN/Creatinine Ratio 12.5 (10.0-20.0); Blood Urea Nitrogen 81 mg/dL (9-23)
--- NOTE | 2024-12-20 12:20 | DVHPN2 ---
Subjective The patient is seen and examined at bedside. No complaint today. Reviewed: Care Plan, H&P, Labs, Medications, Previous Orders, Radiology Changes from previous H/P or p: No Changes Eyes: No Pain, No Vision change, No Conjunctivae inflammation, No Eyelid inflammation, No Other, No Redness ENT: No Ear pain, No Ear discharge, No Nose pain, No Nose discharge, No Nose congestion, No Mouth pain, No Mouth swelling, No Throat pain, No Throat swelling, No Other Cardiovascular: No Chest Pain, No Palpitations, No Orthopnea, No Paroxysmal Noc. Dyspnea, No Edema, No Lt Headedness, No Other Respiratory: Cough; No Dry; Shortness of breath; No SOB with excertion, No Wheezing, No Hemoptysis, No Pleuritic Pain, No Sputum, No Other Gastrointestinal: No Nausea, No Vomiting, No Abdominal Pain, No Diarrhea, No Constipation, No Melena, No Hematochezia, No Other Genitourinary: No Dysuria, No Frequency, No Incontinence, No Hematuria, No Retention; Other (On peritoneal dialysis) Musculoskeletal: No other, No neck pain, No shoulder pain, No arm pain, No back pain, No hand pain, No leg pain, No foot pain Skin: No Rash, No Lesions, No Jaundice, No Bruising, No Other Objective Vitals Vital Signs Date Time Temp Pulse Resp B/P (MAP) Pulse Ox O2 Delivery O2 Flow Rate FiO2 12/20/24 10:00 98 Nasal Cannula 2.0 12/20/24 10:00 28 12/20/24 09:11 77 113/68 12/20/24 08:27 97.6 18 97.6 Intake/Output Intake and Output 12/20/24 07:00 Intake Total 750 ml Output Total 200 ml Balance 550 ml Intake Oral 600 ml IV Total 150 ml Output Urine Total 200 ml # Bowel Movements 1 General Appearance: Alert, Oriented X3, Cooperative, No acute distress HEENT: Atraumatic, PERRLA, EOMI, Mucous membr. moist/pink Neck: Supple Lungs: Clear to auscultation, Normal air movement Cardiovascular: Regular rate, Normal S1, Normal S2, No murmurs, Gallops, Rubs Abdomen: Normal bowel sounds, Soft, No tenderness Neuro: Cranial nerves 3-12 NL Psych/Mental Status: Mental status NL Medications Current Medications Medications Dose Ordered Sig/Fransisco Route Start Time Stop Time Status Last Admin Dose Admin Aspirin 81 mg DAILY PO 12/17/24 10:00 12/20/24 09:08 81 MG Atorvastatin Calcium 20 mg HS PO 12/17/24 22:00 12/19/24 22:16 20 MG Albuterol 2.5 mg Q4HPRN PRN NEB 12/16/24 22:30 Ipratropium [place] 0.5 mg Q4HPRN PRN NEB 12/16/24 22:30 Sevelamer HCl 800 mg TIDWM PO 12/17/24 08:00 12/20/24 09:11 800 MG Multivit/Ca Carb/ B Cmplx/FA/Prenat 1 tab DAILY PO 12/17/24 10:00 12/20/24 09:11 1 TAB Calcium Acetate 667 mg TIDWMEALS PO 12/17/24 08:00 12/20/24 09:11 667 MG Sodium Chloride 10 ml Q8HR IV 12/17/24 06:00 12/20/24 06:58 10 ML Acetaminophen/ Hydrocodone Bitart 1 tab Q4HP PRN PO 12/16/24 22:30 Ondansetron HCl 4 mg Q4HP PRN IV 12/16/24 22:30 Docusate Sodium 100 mg BIDPRN PRN PO 12/16/24 22:30 12/19/24 08:02 100 MG Acetaminophen 650 mg Q6HP PRN PO 12/16/24 22:30 12/17/24 11:47 650 MG Carvedilol 3.125 mg Q12HR PO 12/17/24 10:00 12/20/24 09:08 3.125 MG Nitroglycerin 0.4 mg Q5MINP PRN SL 12/16/24 23:00 Morphine Sulfate 2 mg Q30M PRN IV 12/16/24 23:00 Diagnostic Test (Pha) 1 strip ACHS 12/17/24 17:00 12/20/24 06:59 1 STRIP Insulin Human Regular HS SC 12/17/24 22:00 12/19/24 23:19 3 UNITS Insulin Human Regular AC SC 12/17/24 17:00 12/20/24 12:04 2 UNITS Dextrose 50 ml UD PRN IV 12/17/24 14:15 Apixaban 2.5 mg BID PO 12/17/24 22:00 12/20/24 09:08 2.5 MG Tamsulosin HCl 0.4 mg QPM PO 12/17/24 18:00 12/19/24 17:43 0.4 MG Metoprolol Succinate 25 mg DAILY PO 12/18/24 10:00 12/20/24 09:11 25 MG Metolazone 5 mg EOD PO 12/19/24 10:00 12/19/24 10:51 5 MG Cinacalcet 30 mg DAILY PO 12/18/24 10:00 12/20/24 09:07 30 MG Insulin Glargine 20 units HS SC 12/18/24 22:00 12/19/24 23:19 20 UNITS Piperacillin Sod/ Tazobactam Sod 50 ml @ 12.5 mls/hr Q8HR IV 12/18/24 22:00 12/20/24 05:44 12.5 MLS/HR Bumetanide 1 mg BIDD IV 12/18/24 18:00 12/20/24 06:58 1 MG Guaifenesin/ Dextromethorphan 10 ml Q4HP PRN PO 12/19/24 16:00 12/19/24 17:42 10 ML Albuterol 2.5 mg Q6HWA [facility] 12/19/24 18:00 12/20/24 11:23 2.5 MG Ipratropium [place] 0.5 mg Q6HWA [facility] 12/19/24 18:00 12/20/24 11:23 0.5 MG Laboratory Results Laboratory Tests 12/18/24 05:05 12/20/24 10:18 Chemistry Test 12/20/24 10:18 Calcium Level 8.0 mg/dL (8.7-10.4) L Urinalysis Test 12/16/24 19:30 Urine Color Yellow (Yellow) Urine Clarity Clear (Clear) Urine pH 5.0 (5.0-9.0) Urine Specific [place] 1.032 (1.001-1.035) Urine Protein Trace (Negative) H Urine Ketones Negative (Negative) Urine Blood Negative /uL (Negative) Urine Nitrite Negative (Negative) Urine Bilirubin Negative (Negative) Urine Urobilinogen Normal mg/dL (Negative) Urine Leukocyte Esterase 1+ /uL (Negative) Urine RBC 3 /hpf (0 - 3) Urine Microscopic WBC 4 /HPF (0-3) H Urine Squamous Epithelial Cells Few /hpf (<5) Urine Bacteria Few /hpf (None Seen) H Urine Glucose 2+ mg/dL (Normal) H Microbiology Microbiology Date/Time Source Procedure Growth Status 12/17/24 08:10 Nose MRSA Screen - Final Complete Labs and/or images reviewed: Labs reviewed by me Assessment/Plan Assessment/Plan #1 acute on chronic diastolic heart failure: dialysis #2 uncontrolled dm: lantus, ssi #3 esrd: on pd #4 htn #5 a fib with secondary hypercoagulable state: eliquis #6 obesity #7 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 Although this document has been carefully reviewed, there may still be some phonetic and typographical errors. These areas are purely typographical due to imperfections of the software programs, and do not reflect any compromise in the patient's medical care. Plan discussed with: Patient Date of Service: Dec 20, 2024 Billing Provider: RYAN VIGIL MD Common Visit Codes: [id number] INP/OBS CARE(HIGH) RYAN VIGIL MD Dec 20, 2024 12:20
--- NOTE | 2024-12-20 16:38 | DVHPNRES ---
Progress Note Date Seen: Dec 20, 2024 Resident Creating Document: CHITO BATRES RESIDENT Medical Necessity Reason Pt with a Central, PICC or Fol: No Subjective Review of Systems History of Present Illness History of present illness 69-year-old male patient with past medical history of diabetes mellitus for last 20 years, CHF, atrial fibrillation status post failed cardioversion and planned to have ablation, end-stage renal disease on peritoneal dialysis that was started last year in February, CKD for nine years, hypertension, atrial fibrillation, sleep apnea presented with complaints of shortness of breath associated with cough. Patient mentioned that he had COVID seven days ago and was tested negative but still had symptoms of cough on Monday. Patient went to urgent care where he was found to have low oxygen and was referred to the ER. He also mentioned that he had associated fever on Monday that is resolved today. Patient was initially on oxygen in the hospital but now is on room air, mentioning mild cough with sputum. Patient mentioned that he sees Dr. Keane for outpatient nephrology and is on dialysis every day 9 hours. Patient mentioned that he still makes urine around 50-100 mL every day. Denied any complaints of burning micturition, urgency, frequency. Denied any flank pain, fever, chills, abdominal pain Nephrology was consulted for management for end-stage renal disease. Patient is currently on peritoneal dialysis in the hospital Past medical history diabetes mellitus for last 20 years CHF atrial fibrillation status post failed cardioversion and planned to have ablation end-stage renal disease on peritoneal dialysis that was started last year in February CKD for nine years, hypertension sleep apnea Past surgical history No recent surgery Family History Family History: Reviewed,noncontributory to illness Social History Smoker: Non-Smoker Alcohol: Denies ETOH Use Drugs: Denies Drug Use Lives In: Home Medication history Albuterol Amlodipine Eliquis Atorvastatin Buprenorphine Metolazone Cinacalcet Metoprolol Repaglinide sevelamer Spironolactone Insulin Gabapentin Interval event 12/19/2024 No active symptoms, on room air Patient receiving a peritoneal dialysis at bedtime Interval event 12/20/2024 No active symptoms Patient receiving peritoneal dialysis daily Objective vital signs Vital Sign Date Time Temp Pulse Resp B/P (MAP) Pulse Ox O2 Delivery O2 Flow Rate FiO2 12/20/24 13:00 97.6 62 18 101/71 (81) 97 97.6 12/20/24 10:00 Nasal Cannula 2.0 12/20/24 10:00 28 Total Intake and Output 12/19/24 12/19/24 12/20/24 14:59 22:59 06:59 Intake Total 50 ml 500 ml 200 ml Output Total 200 ml 0 ml Balance 50 ml 300 ml 200 ml medications Current Medications Medications Dose Ordered Sig/Fransisco Route Start Time Stop Time Status Last Admin Dose Admin Aspirin 81 mg DAILY PO 12/17/24 10:00 12/20/24 09:08 81 MG Atorvastatin Calcium 20 mg HS PO 12/17/24 22:00 12/19/24 22:16 20 MG Albuterol 2.5 mg Q4HPRN PRN NEB 12/16/24 22:30 Ipratropium [place] 0.5 mg Q4HPRN PRN NEB 12/16/24 22:30 Sevelamer HCl 800 mg TIDWM PO 12/17/24 08:00 12/20/24 12:36 800 MG Multivit/Ca Carb/ B Cmplx/FA/Prenat 1 tab DAILY PO 12/17/24 10:00 12/20/24 09:11 1 TAB Calcium Acetate 667 mg TIDWMEALS PO 12/17/24 08:00 12/20/24 12:36 667 MG Sodium Chloride 10 ml Q8HR IV 12/17/24 06:00 12/20/24 15:06 10 ML Acetaminophen/ Hydrocodone Bitart 1 tab Q4HP PRN PO 12/16/24 22:30 Ondansetron HCl 4 mg Q4HP PRN IV 12/16/24 22:30 Docusate Sodium 100 mg BIDPRN PRN PO 12/16/24 22:30 12/19/24 08:02 100 MG Acetaminophen 650 mg Q6HP PRN PO 12/16/24 22:30 12/17/24 11:47 650 MG Carvedilol 3.125 mg Q12HR PO 12/17/24 10:00 12/20/24 09:08 3.125 MG Nitroglycerin 0.4 mg Q5MINP PRN SL 12/16/24 23:00 Morphine Sulfate 2 mg Q30M PRN IV 12/16/24 23:00 Diagnostic Test (Pha) 1 strip ACHS 12/17/24 17:00 12/20/24 11:30 1 STRIP Insulin Human Regular HS SC 12/17/24 22:00 12/19/24 23:19 3 UNITS Insulin Human Regular AC SC 12/17/24 17:00 12/20/24 12:04 2 UNITS Dextrose 50 ml UD PRN IV 12/17/24 14:15 Apixaban 2.5 mg BID PO 12/17/24 22:00 12/20/24 09:08 2.5 MG Tamsulosin HCl 0.4 mg QPM PO 12/17/24 18:00 12/19/24 17:43 0.4 MG Metoprolol Succinate 25 mg DAILY PO 12/18/24 10:00 12/20/24 09:11 25 MG Metolazone 5 mg EOD PO 12/19/24 10:00 12/19/24 10:51 5 MG Cinacalcet 30 mg DAILY PO 12/18/24 10:00 12/20/24 09:07 30 MG Insulin Glargine 20 units HS SC 12/18/24 22:00 12/19/24 23:19 20 UNITS Piperacillin Sod/ Tazobactam Sod 50 ml @ 12.5 mls/hr Q8HR IV 12/18/24 22:00 12/20/24 15:07 12.5 MLS/HR Guaifenesin/ Dextromethorphan 10 ml Q4HP PRN PO 12/19/24 16:00 12/19/24 17:42 10 ML Albuterol 2.5 mg Q6HWA NEB 12/19/24 18:00 12/20/24 11:23 2.5 MG Ipratropium [place] 0.5 mg Q6HWA NEB 12/19/24 18:00 12/20/24 11:23 0.5 MG Bumetanide 1 mg BIDD PO 12/20/24 18:00 Examination Examination General Appearance: Alert, Oriented X3, Cooperative, No acute distress, on peritoneal dialysis HEENT: EOMI Respiratory: Clear to auscultation, Normal air movement Cardiovascular: Regular rate, Normal S1, Normal S2 Abdominal: No guarding, rigidity, tenderness, on peritoneal dialysis Extremities: No cyanosis, No edema, Normal pulses, No tenderness/swelling Skin: No rashes, No breakdown Neuro: Normal speech and tone laboratory and microbiology Laboratory Tests 12/20/24 10:18 12/18/24 05:05 Test 12/20/24 10:18 Range/Units Serum Glucose 143 H 74-106 mg/dL Microbiology Date/Time Source Procedure Growth Status 12/17/24 08:10 Nose MRSA Screen - Final Complete Labs and/or images reviewed: Labs reviewed by me, Image(s) reviewed by me Problem List/Assessment/Plan Problem List/Assessment/Plan Assessment/plan # End-stage Renal disease on peritoneal dialysis # Hypokalemia # acute respiratory distress likely superimposed bacterial pneumonia on previous COVID-19 infection Currently on room air # Diabetes mellitus type 2 # CHF # atrial fibrillation status post failed cardioversion and planned to have ablation # hypertension # sleep apnea Plan continue PD via cycler Renal diet Monitor kidney function and electrolytes Continue home medication calcium acetate capsule 667 mg t.i.d. with meals Continue sevelamer 800 mg p.o. t.i.d., home medication and cinacalcet 30 mg every other day and metolazone 5 mg daily Continue peritoneal dialysis for 9 hours every day Optimize management to have Tighter control of diabetes Switch IV Bumex 2 mg BID to Bumex 1 mg oral b.i.d. oral potassium effervescent 50 meq once repeat potassium levels Outpatient follow up with Nephrology Case discussion with Dr. Leos Addendum Patient seen and examined, plan discussed with resident. Agree with above, we will follow closely bun high sec to diuretics continue pd Plan discussed with: Patient, Other My Orders My Orders Orders - CHITO BATRES Procedure Category Date Status Time Bumetanide Tablet PHA 12/20/24 In Process (Bumex Tablet) 18:00 CHITO BATRES Dec 20, 2024 16:38 ALYSE LEOS MD Dec 20, 2024 18:52
[2024-12-20] MEDS: POTASSIUM EFFERVESENT TAB 25 MEQ PO ONE (17:47)
[2024-12-20] MEDS: BUMETANIDE 1 MG TAB PO SCH (18:24)
[2024-12-21] VITALS (10 sets, daily range): BP systolic 100–120; BP diastolic 42–85; PULSE 57–121; RESP 16–18; TEMP 97.7–98.4; O2SAT 94–100
--- NOTE | 2024-12-21 09:55 | DVHPN2 ---
Subjective The patient is seen and examined at bedside. No complaint today. Reviewed: Care Plan, H&P, Labs, Medications, Previous Orders, Radiology Eyes: No Pain, No Vision change, No Conjunctivae inflammation, No Eyelid inflammation, No Other, No Redness ENT: No Ear pain, No Ear discharge, No Nose pain, No Nose discharge, No Nose congestion, No Mouth pain, No Mouth swelling, No Throat pain, No Throat swelling, No Other Cardiovascular: No Chest Pain, No Palpitations, No Orthopnea, No Paroxysmal Noc. Dyspnea, No Edema, No Lt Headedness, No Other Respiratory: Cough; No Dry; Shortness of breath; No SOB with excertion, No Wheezing, No Hemoptysis, No Pleuritic Pain, No Sputum, No Other Gastrointestinal: No Nausea, No Vomiting, No Abdominal Pain, No Diarrhea, No Constipation, No Melena, No Hematochezia, No Other Genitourinary: No Dysuria, No Frequency, No Incontinence, No Hematuria, No Retention; Other (On peritoneal dialysis) Musculoskeletal: No other, No neck pain, No shoulder pain, No arm pain, No back pain, No hand pain, No leg pain, No foot pain Skin: No Rash, No Lesions, No Jaundice, No Bruising, No Other Objective Vitals Vital Signs Date Time Temp Pulse Resp B/P (MAP) Pulse Ox O2 Delivery O2 Flow Rate FiO2 12/21/24 09:09 100/64 12/21/24 09:09 65 12/21/24 06:21 16 100 12/21/24 06:15 Nasal Cannula 2.0 12/21/24 06:15 21 12/21/24 05:00 97.7 97.7 Intake/Output Intake and Output 12/21/24 07:00 Intake Total 1130 ml Output Total 1400 ml Balance -270 ml Intake Oral 1030 ml IV Total 100 ml Output Urine Total 1400 ml # Bowel Movements 2 General Appearance: Alert, Oriented X3, Cooperative, No acute distress HEENT: Atraumatic, PERRLA, EOMI, Mucous membr. moist/pink Neck: Supple Lungs: Clear to auscultation, Normal air movement Cardiovascular: Regular rate, Normal S1, Normal S2, No murmurs, Gallops, Rubs Abdomen: Normal bowel sounds, Soft, No tenderness Neuro: Cranial nerves 3-12 NL Psych/Mental Status: Mental status NL Medications Current Medications Medications Dose Ordered Sig/[place] Route Start Time Stop Time Status Last Admin Dose Admin Aspirin 81 mg DAILY PO 12/17/24 10:00 12/21/24 09:08 81 MG Atorvastatin Calcium 20 mg HS PO 12/17/24 22:00 12/20/24 22:03 20 MG Albuterol 2.5 mg Q4HPRN PRN NEB 12/16/24 22:30 Ipratropium [place] 0.5 mg Q4HPRN PRN NEB 12/16/24 22:30 Sevelamer HCl 800 mg TIDWM PO 12/17/24 08:00 12/21/24 09:07 800 MG Multivit/Ca Carb/ B Cmplx/FA/Prenat 1 tab DAILY PO 12/17/24 10:00 12/21/24 09:09 1 TAB Calcium Acetate 667 mg TIDWMEALS PO 12/17/24 08:00 12/21/24 09:08 667 MG Sodium Chloride 10 ml Q8HR IV 12/17/24 06:00 12/21/24 06:23 10 ML Acetaminophen/ Hydrocodone Bitart 1 tab Q4HP PRN PO 12/16/24 22:30 Ondansetron HCl 4 mg Q4HP PRN IV 12/16/24 22:30 Docusate Sodium 100 mg BIDPRN PRN PO 12/16/24 22:30 12/19/24 08:02 100 MG Acetaminophen 650 mg Q6HP PRN PO 12/16/24 22:30 12/17/24 11:47 650 MG Carvedilol 3.125 mg Q12HR PO 12/17/24 10:00 12/21/24 09:08 3.125 MG Nitroglycerin 0.4 mg Q5MINP PRN SL 12/16/24 23:00 Morphine Sulfate 2 mg Q30M PRN IV 12/16/24 23:00 Diagnostic Test (Pha) 1 strip ACHS 12/17/24 17:00 12/21/24 06:24 1 STRIP Insulin Human Regular HS SC 12/17/24 22:00 12/20/24 22:07 3 UNITS Insulin Human Regular AC SC 12/17/24 17:00 12/21/24 06:28 6 UNITS Dextrose 50 ml UD PRN IV 12/17/24 14:15 Apixaban 2.5 mg BID PO 12/17/24 22:00 12/21/24 09:09 2.5 MG Tamsulosin HCl 0.4 mg QPM PO 12/17/24 18:00 12/20/24 18:23 0.4 MG Metoprolol Succinate 25 mg DAILY PO 12/18/24 10:00 12/21/24 09:09 25 MG Metolazone 5 mg EOD PO 12/19/24 10:00 12/21/24 09:09 5 MG Cinacalcet 30 mg DAILY PO 12/18/24 10:00 12/20/24 09:07 30 MG Insulin Glargine 20 units HS SC 12/18/24 22:00 12/20/24 22:08 20 UNITS Piperacillin Sod/ Tazobactam Sod 50 ml @ 12.5 mls/hr Q8HR IV 12/18/24 22:00 12/21/24 06:31 12.5 MLS/HR Guaifenesin/ Dextromethorphan 10 ml Q4HP PRN PO 12/19/24 16:00 12/21/24 06:38 10 ML Albuterol 2.5 mg Q6HWA NEB 12/19/24 18:00 12/21/24 06:15 2.5 MG Ipratropium [place] 0.5 mg Q6HWA [facility] 12/19/24 18:00 12/21/24 06:15 0.5 MG Bumetanide 1 mg BIDD PO 12/20/24 18:00 12/20/24 18:24 1 MG Laboratory Results Laboratory Tests 12/18/24 05:05 12/20/24 10:18 12/20/24 20:02 Chemistry Test 12/20/24 10:18 Calcium Level 8.0 mg/dL (8.7-10.4) L Urinalysis Test 12/16/24 19:30 Urine Color Yellow (Yellow) Urine Clarity Clear (Clear) Urine pH 5.0 (5.0-9.0) Urine Specific [place] 1.032 (1.001-1.035) Urine Protein Trace (Negative) H Urine Ketones Negative (Negative) Urine Blood Negative /uL (Negative) Urine Nitrite Negative (Negative) Urine Bilirubin Negative (Negative) Urine Urobilinogen Normal mg/dL (Negative) Urine Leukocyte Esterase 1+ /uL (Negative) Urine RBC 3 /hpf (0 - 3) Urine Microscopic WBC 4 /HPF (0-3) H Urine Squamous Epithelial Cells Few /hpf (<5) Urine Bacteria Few /hpf (None Seen) H Urine Glucose 2+ mg/dL (Normal) H Microbiology Microbiology Date/Time Source Procedure Growth Status 12/17/24 08:10 Nose MRSA Screen - Final Complete Assessment/Plan Assessment/Plan #1 acute on chronic diastolic heart failure: dialysis #2 uncontrolled dm: lantus, ssi #3 esrd: on pd #4 htn #5 a fib with secondary hypercoagulable state: eliquis #6 obesity #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 Although this document has been carefully reviewed, there may still be some phonetic and typographical errors. These areas are purely typographical due to imperfections of the software programs, and do not reflect any compromise in the patient's medical care. RYAN VIGIL MD Dec 21, 2024 09:55
[2024-12-21] MEDS ORDERED: BUM1T PO (10:52)
--- NOTE | 2024-12-21 10:55 | DVHDS2 ---
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 #8 right pneumonia with ?sepsis Labs/Diagnostic Data: Laboratory Results Test 12/21/24 06:06 12/20/24 20:02 12/20/24 10:18 12/19/24 11:48 POC Glucose 229 mg/dl (70-106) Potassium Level 3.9 mmol/L (3.5-5.1) Sodium Level 132 mmol/L (136-145) Chloride Level 92 mmol/L (98-107) Carbon Dioxide Level 26 mmol/L (20-31) Anion Gap 14 (5-15) Blood Urea Nitrogen 81 mg/dL (9-23) Creatinine 6.49 mg/dL (0.700-1.30) Glomerular Filtration Rate Calc 9 mL/min (>90) BUN/Creatinine Ratio 12.5 (10.0-20.0) Serum Glucose 143 mg/dL (74-106) Calcium Level 8.0 mg/dL (8.7-10.4) Magnesium Level 2.0 mg/dL (1.6-2.6) Test 12/18/24 05:05 12/17/24 05:03 12/16/24 20:47 12/16/24 19:30 White Blood Count 9.2 10^3/uL (4.4-10.8) Red Blood Count 4.05 10^6/uL (4.5-5.90) Hemoglobin 12.3 g/dL (13.5-17.5) Hematocrit 35.1 % (41.0-53.0) Mean Corpuscular Volume 86.6 fL (80.0-100.0) Mean Corpuscular Hemoglobin 30.4 pg (28.0-32.0) Mean Corpuscular Hemoglobin Concent 35.1 g/dL (32.0-36.0) Red Cell Distribution Width 16.0 % (11.8-14.3) Platelet Count 246 10^3/uL (140-450) Mean Platelet Volume 7.6 fL (6.9-10.8) Neutrophils (%) (Auto) 92.2 % (37.0-80.0) Lymphocytes (%) (Auto) 3.5 % (10.0-50.0) Monocytes (%) (Auto) 4.1 % (0.0-12.0) Eosinophils (%) (Auto) 0.0 % (0.0-7.0) Basophils (%) (Auto) 0.2 % (0.0-2.0) Neutrophils # (Auto) 8.5 10 ^3/uL (1.6-8.6) Lymphocytes # (Auto) 0.3 10 ^3/uL (0.4-5.4) Monocytes # (Auto) 0.4 10 ^3/uL (0-1.3) Eosinophils # (Auto) 0 10 ^3/uL (0-0.8) Basophils # (Auto) 0 10 ^3/uL (0-0.2) Nucleated Red Blood Cells 0.1 % Phosphorus Level 6.8 mg/dL (2.4-5.1) Total Bilirubin 0.5 mg/dL (0.2-1.0) Aspartate Amino Transferase (AST) 16 U/L (13-40) Alanine Aminotransferase (ALT) 45 U/L (7-40) Alkaline Phosphatase 85 U/L (46-116) Total Protein 7.0 g/dL (5.7-8.2) Albumin 3.8 g/dL (3.2-4.8) Troponin I High Sensitivity 114 ng/L (</=54) Urine Color Yellow (Yellow) Urine Clarity Clear (Clear) Urine pH 5.0 (5.0-9.0) Urine Specific [place] 1.032 (1.001-1.035) Urine Protein Trace (Negative) Urine Ketones Negative (Negative) Urine Blood Negative /uL (Negative) Urine Nitrite Negative (Negative) Urine Bilirubin Negative (Negative) Urine Urobilinogen Normal mg/dL (Negative) Urine Leukocyte Esterase 1+ /uL (Negative) Urine RBC 3 /hpf (0 - 3) Urine Microscopic WBC 4 /HPF (0-3) Urine Squamous Epithelial Cells Few /hpf (<5) Urine Bacteria Few /hpf (None Seen) Urine Glucose 2+ mg/dL (Normal) Test 12/16/24 17:47 B-Type Natriuretic Peptide 182.53 pg/mL (0-100) Other Laboratory Tests 12/20/24 20:02 12/20/24 10:18 12/18/24 05:05 Brief Hx & Hospital Course: This is a 69 years old male with past medical history of atrial fibrillation, diabetes type 2, congestive heart failure, end-stage renal disease on peritoneal dialysis and hypertension came to [facility] for shortness a breath. The patient had shortness for breath associated with cough and fever for two days. The patient also was defibrillated one week ago at [facility] due to a problem with his atrial fibrillation. When the patient come into the hospital he required 6 L of oxygen. The patient chest x-ray showed cardiomegaly with pulmonary congestion and bilateral patchy airspace disease. Bilateral pleural effusion with just small. The patient was admitted. The patient was put on IV antibiotic with Zosyn The patient continuing to have peritoneal dialysis. Nephrologists see the patient recommend Bumex twice per day. Today the patient doing well no fever or chill. No cough. No shortness a breath. I am going to discharge him home. Advised him to follow up with primary care physician 1-2 weeks. Follow up with his Nephrology per schedule. Activity as tolerated. Diet per home diet. Recommend renal diet. Physical exam: HEENT: Normocephalic atraumatic pupils equal react to light and accommodation. Extraocular muscles intact, conjunctiva pink, oropharynx moist, no thrush, no exudate. Lymphatic: No lymphadenopathy Cardiovascular exam: S1, S2 was heard. No murmurs, rubs, gallops Lung: Clear on auscultation bilaterally, no wheeze, rale, rhonchi. GI: Abdominal soft, nondistended, nontenderness, positive bowel sounds. Extremity: No crepitus, cyanosis, edema. Pedal pulses present bilateral. Full range of motion. Skin: Normal turgor, no rash. Psych: Alert, oriented x3. Neurology: No focal deficits, cranial nerve II to XII grossly intact. This medical document was created using an electronic medical record system with [employer] computerized dictation system. Although this document has been carefully reviewed, there may still be some phonetic and typographical errors. These areas are purely typographical due to imperfections of the software programs, and do not reflect any compromise in the patient's medical care. 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 #8 right pneumonia with ?sepsis Discharge Disposition: Home Discharge Instruct/Medications Diet: Renal Activity: No Restrictions, As Tolerated Follow Up/Referral: pcp 1-2 weeks Substance Abuse Counselor per schedule Medications: Resume home meds bumex 1mg bid Scheduled Albuterol Sulfate (Ventolin), 1 VIAL NEB Q6HR, (Reported) Amlodipine Besylate (Norvasc Tablet), 1 TAB PO DAILY, (Reported) Apixaban Base (Eliquis), 5 MG PO BID, (Reported) Atorvastatin Calcium (Atorvastatin Calcium), 1 TAB PO DAILY, (Reported) Bumetanide (Bumex Tablet), 1 MG PO BIDD Buprenorphine (Butrans), 1 APPLIC TD QWEEKLY, (Reported) Carvedilol (Carvedilol), 1 TAB PO DAILY, (Reported) Cinacalcet HCl (Cinacalcet Hydrochloride), 1 TAB PO DAILY, (Reported) Gabapentin (Gabapentin), 1 CAP PO DAILY, (Reported) Insulin NPH (Human) (Isophane) (Humulin N), 10 UNIT SC DAILY, (Reported) Linaclotide Base (Linzess), 1 CAP PO DAILY, (Reported) Lubiprostone (Lubiprostone), 1 CAP PO BID, (Reported) Megestrol Acetate (Megestrol Acetate), 1 TAB PO BID, (Reported) Metolazone (Metolazone), 5 MG PO EOD, (Reported) Metoprolol Tartrate (Lopressor), 1 TAB PO BID, (Reported) Omeprazole (Omeprazole Dr), 1 CAP PO DAILY, (Reported) Potassium Chloride (Potassium Chloride ER), 1 TAB PO DAILY, (Reported) Repaglinide (Repaglinide), 3 TAB PO DAILY, (Reported) Sennosides-Docusate Sodium ([place]-S), 1 TAB PO BID, (Reported) Spironolactone (Spironolactone), 1 TAB PO DAILY, (Reported) Tamsulosin HCl (Tamsulosin Hydrochloride), 1 CAP PO DAILY, (Reported) Scheduled PRN Hydroxyzine Hcl (Hydroxyzine Hcl), 1 TAB PO HS PRN for ITCHING OR SLEEP, (Reported) Miscellaneous Medications Insulin Glargine (Basaglar Kwikpen), 30 UNIT SC, (Reported) Sevelamer HCl (Sevelamer Hydrochloride), 400 MG PO, (Reported) Discontinued Medications Carvedilol (Coreg), 12.5 MG OR, (Reported) Gabapentin (Once-Daily) (Gabapentin), 1 TAB PO DAILY, (Reported) Discontinued Reason: Prescription changed Omeprazole (Omeprazole), 20 MG PO, (Reported) Discharge Statement: "Patient was advised to return to the ER or call 911 if any headaches, dizziness, shortness of breath, chest pain, abdominal pain, bleeding, fevers, or worsening of medical condition. Patient was counseled about treatment plan, medications, possible side effects, patientverbalized understanding. All questions were answered to the best of my ability. This discharge took greater then 30 minutes in planning, reviewing documentation, counseling the patient, and discussing with other team members." ASSESSMENT ASSESSMENT Assessment fluid overload Date of Service: Dec 21, 2024 Billing Provider: RYAN VIGIL MD Common Visit Codes: 12225-DIO/OBS DISCH DAY >30min RYAN VIGIL MD Dec 21, 2024 10:55
--- NOTE | 2024-12-21 11:03 | DVHPN2 ---
Progress Note Date Seen: Dec 21, 2024 Medical Necessity Reason Pt with a Central, PICC or Fol: No Subjective Patient reports: Feels better Review of Systems: HEENT:Normal, CVS:Normal, RESPIRATORY:Normal, GI:Normal, :Normal, MSK:Normal, NEURO:Normal Objective vital signs Vital Sign Date Time Temp Pulse Resp B/P (MAP) Pulse Ox O2 Delivery O2 Flow Rate FiO2 12/21/24 09:09 100/64 12/21/24 09:09 65 12/21/24 06:21 16 100 12/21/24 06:15 Nasal Cannula 2.0 12/21/24 06:15 21 12/21/24 05:00 97.7 97.7 Total Intake and Output 12/20/24 12/20/24 12/21/24 15:00 23:00 07:00 Intake Total 50 ml 750 ml 330 ml Output Total 1300 ml 100 ml Balance 50 ml -550 ml 230 ml medications Current Medications Medications Dose Ordered Sig/Fr[place] Route Start Time Stop Time Status Last Admin Dose Admin Aspirin 81 mg DAILY PO 12/17/24 10:00 12/21/24 09:08 81 MG Atorvastatin Calcium 20 mg HS PO 12/17/24 22:00 12/20/24 22:03 20 MG Albuterol 2.5 mg Q4HPRN PRN NEB 12/16/24 22:30 Ipratropium [place] 0.5 mg Q4HPRN PRN NEB 12/16/24 22:30 Sevelamer HCl 800 mg TIDWM PO 12/17/24 08:00 12/21/24 09:07 800 MG Multivit/Ca Carb/ B Cmplx/FA/Prenat 1 tab DAILY PO 12/17/24 10:00 12/21/24 09:09 1 TAB Calcium Acetate 667 mg TIDWMEALS PO 12/17/24 08:00 12/21/24 09:08 667 MG Sodium Chloride 10 ml Q8HR IV 12/17/24 06:00 12/21/24 06:23 10 ML Acetaminophen/ Hydrocodone Bitart 1 tab Q4HP PRN PO 12/16/24 22:30 Ondansetron HCl 4 mg Q4HP PRN IV 12/16/24 22:30 Docusate Sodium 100 mg BIDPRN PRN PO 12/16/24 22:30 12/19/24 08:02 100 MG Acetaminophen 650 mg Q6HP PRN PO 12/16/24 22:30 12/17/24 11:47 650 MG Carvedilol 3.125 mg Q12HR PO 12/17/24 10:00 12/21/24 09:08 3.125 MG Nitroglycerin 0.4 mg Q5MINP PRN SL 12/16/24 23:00 Morphine Sulfate 2 mg Q30M PRN IV 12/16/24 23:00 Diagnostic Test (Pha) 1 strip ACHS 12/17/24 17:00 12/21/24 06:24 1 STRIP Insulin Human Regular HS SC 12/17/24 22:00 12/20/24 22:07 3 UNITS Insulin Human Regular AC SC 12/17/24 17:00 12/21/24 06:28 6 UNITS Dextrose 50 ml UD PRN IV 12/17/24 14:15 Apixaban 2.5 mg BID PO 12/17/24 22:00 12/21/24 09:09 2.5 MG Tamsulosin HCl 0.4 mg QPM PO 12/17/24 18:00 12/20/24 18:23 0.4 MG Metoprolol Succinate 25 mg DAILY PO 12/18/24 10:00 12/21/24 09:09 25 MG Metolazone 5 mg EOD PO 12/19/24 10:00 12/21/24 09:09 5 MG Cinacalcet 30 mg DAILY PO 12/18/24 10:00 12/20/24 09:07 30 MG Insulin Glargine 20 units HS SC 12/18/24 22:00 12/20/24 22:08 20 UNITS Piperacillin Sod/ Tazobactam Sod 50 ml @ 12.5 mls/hr Q8HR IV 12/18/24 22:00 12/21/24 06:31 12.5 MLS/HR Guaifenesin/ Dextromethorphan 10 ml Q4HP PRN PO 12/19/24 16:00 12/21/24 06:38 10 ML Albuterol 2.5 mg Q6HWA NEB 12/19/24 18:00 12/21/24 06:15 2.5 MG Ipratropium [place] 0.5 mg Q6HWA NEB 12/19/24 18:00 12/21/24 06:15 0.5 MG Bumetanide 1 mg BIDD PO 12/20/24 18:00 12/20/24 18:24 1 MG laboratory and microbiology Laboratory Tests 12/20/24 20:02 12/20/24 10:18 12/18/24 05:05 Test 12/20/24 10:18 Range/Units Serum Glucose 143 H 74-106 mg/dL Microbiology Date/Time Source Procedure Growth Status 12/17/24 08:10 Nose MRSA Screen - Final Complete Problem List/Assessment/Plan Problem List/Assessment/Plan Assessment/plan # End-stage Renal disease on peritoneal dialysis # Hypokalemia # acute respiratory distress likely superimposed bacterial pneumonia on previous COVID-19 infection Currently on room air # Diabetes mellitus type 2 # CHF # atrial fibrillation status post failed cardioversion and planned to have ablation # hypertension # sleep apnea Plan continue PD via cycler Renal diet po diuretics Plan discussed with: Patient ALYSE HERRERA MD Dec 21, 2024 11:03
== END 2024-12-21 12:28 | disposition home or self-care (01) | DRG 871 ==
LOC: ER 16:02 → OVERFLOW 22:57 → TELE-EAST 22:58
PROVIDERS: ADMIT Internal Medicine; ATTEND Internal Medicine
DX: A41.9 Sepsis, unspecified organism (principal); I21.A1 Myocardial infarction type 2; I50.33 Acute on chronic diastolic (congestive) heart failure; N18.6 End stage renal disease; J15.9 Unspecified bacterial pneumonia; I13.2 Hypertensive heart and chronic kidney disease with heart failure and with stage 5 chronic kidney disease, or end stage renal disease; D68.69 Other thrombophilia; I48.0 Paroxysmal atrial fibrillation; J98.4 Other disorders of lung; G47.30 Sleep apnea, unspecified; E66.9 Obesity, unspecified; E87.6 Hypokalemia; E11.22 Type 2 diabetes mellitus with diabetic chronic kidney disease; Z86.16 Personal history of COVID-19; Z99.2 Dependence on renal dialysis; Z79.4 Long term (current) use of insulin; Z79.899 Other long term (current) drug therapy; Z68.33 Body mass index [BMI] 33.0-33.9, adult
CPT/HCPCS: 36415; 71045; 71250; 80048; 80053; 81001; 82962; 83735; 83880; 84100; 84132; 84484; 85025; 87081; 93005; 94640; 96365; 96375; 99291; 99292; G0378; J1815; J2543; J3490